=== PATIENT | male | born 1945 | race Caucasian/White ===

== ENCOUNTER 2019-10-02 10:23 | Outpatient (CLI) | payer MEDICARE, SELFPAY ==
--- NOTE | ~2019-10-02 | XR_ITS ---
XR chest 2V 10/02/2019 12:21 Indication: Personal history of pneumonia, shortness of breath and cough Procedure: 2 view chest Comparison: Comparison to multiple prior studies sequentially, with oldest reviewed study dated 01/2019. Findings: Bibasilar airspace disease. Heart size is normal. No pleural effusion or pneumothorax. No a cute osseous abnormality. There are surgical changes in the epigastric region. Impression: 1: Bibasilar airspace disease, differential diagnosis includes atelectasis, scarring and pneumonia.. Reviewed, dictated and finalized at location B. BATCHER Impression: 1: Bibasilar airspace disease, differential diagnosis includes atelectasis, sca rring and pneumonia..
[2019-10-02 11:07] VITALS: PULSE 64; O2SAT 86
[2019-10-02 11:08] VITALS: PULSE 65; O2SAT 87
[2019-10-02 11:09] VITALS: PULSE 64; O2SAT 89
[2019-10-02 11:13] VITALS: PULSE 65; O2SAT 90
[2019-10-02 11:20] VITALS: PULSE 64; O2SAT 91
--- NOTE | 2019-10-02 12:36 | HOMEO2EVAL ---
Home Oxygen Evaluation RC: Home Oxygen (O2) Evaluation Start: 10/02/19 12:32 Freq: Status: Active Protocol: RPE Activity Type Activity Date Activity User E-Sign Co-Sign Detail Recorded Client Recorded Date Recorded By Document 10/02/19 11:07 KRM [id number] 10/02/19 12:36 KRM Document 10/02/19 11:08 KRM [id number] 10/02/19 12:36 KRM Document 10/02/19 11:09 KRM [id number] 10/02/19 12:36 KRM Document 10/02/19 11:13 KRM [email or web address] 10/02/19 12:36 KRM Document 10/02/19 11:20 KRM [id number] 10/02/19 12:36 KRM 10/02/19 10/02/19 10/02/19 11:07 11:08 11:09 Home O2 Evaluation Test Phase Resting Resting Resting Oxygen Delivery Room Air Oxygen Flow Rate (L/min) 1 2 Pulse Oximetry (90-100 %) 86 L 87 L 89 L Pulse Rate (60-100 beats/min) 64 65 64 Activity Tolerance Ambulation Distance (feet) Treatment Charges O2 Evaluation 10/02/19 10/02/19 11:13 11:20 Home O2 Evaluation Test Phase Exercise Resting Oxygen Delivery Oxygen Flow Rate (L/min) 2 2 Pulse Oximetry (90-100 %) 90 91 Pulse Rate (60-100 beats/min) 65 64 Activity Tolerance Fair Ambulation Distance (feet) 100 Treatment Charges
== END 2019-10-02 10:24 | disposition home or self-care (01) ==
PROVIDERS: PCP Emergency Medicine; Visit Provider Internal Medicine Critical Care Medicine
DX: Z87.01 Personal history of pneumonia (recurrent) (principal); Z99.81 Dependence on supplemental oxygen; R91.8 Other nonspecific abnormal finding of lung field
CPT/HCPCS: 71046; 94618

== ENCOUNTER 2020-01-26 08:14 | Outpatient (CLI) | payer MEDICARE, SELFPAY ==
--- NOTE | ~2020-01-26 | XR_ITS ---
XR chest 2V DATE: 01/26/2020 08:47 INDICATION: Shortness of breath, hypoxemia. COPD. TECHNIQUE: PA and lateral views COMPARISON: 10/02/2019 PA and lateral chest FINDINGS: There is bibasilar discoid atelectasis and/or scarring, also present on 10/02/2019. There is mild elevation of the right leaf of the diaphragm The lungs are moderately hyperinflated. There is old pulmonary embolus disease. No pulmonary consolidation, pleural effusion, pulmonary vascular congestion or pneumothorax is eviden t since 10/02/2019. Normal heart size. Aortic calcification. IMPRESSION: Stable bibasilar discoid atelectasis and/or scarring/09/2019 Reviewed, dictated and finalized at location A.
== END 2020-01-26 08:15 | disposition home or self-care (01) ==
LOC: ANHIMG 08:23
PROVIDERS: PCP Emergency Medicine; Visit Provider Internal Medicine Critical Care Medicine
DX: J44.9 Chronic obstructive pulmonary disease, unspecified (principal); R09.02 Hypoxemia; J98.11 Atelectasis
CPT/HCPCS: 71046

== ENCOUNTER 2020-02-09 09:28 | Outpatient (CLI) | payer MEDICARE, SELFPAY ==
[2020-02-09 09:48] LABS: Basophils Absolute Auto 0.1 K/mm3 (0.0-0.1); Basophils Percent Auto 0.6 % (0.2-1.2); Eosinophils Absolute Auto 0.1 K/mm3 (0-0.3); Eosinophils Percent Auto 1.1 % (0-4.4); Hematocrit 46.2 % (42.0-52.0); Hemoglobin 14.1 g/dL (14.0-18.0); Immature Granulocyte Absolute 0.05 K/mm3 (0.00-0.031); Immature Granulocyte Percent A 0.4 % (0-0.5); Lymphocytes Absolute Auto 4.99 K/mm3 (0.9-3.2); Lymphocytes Percent Auto 43.2 % (18.3-44.2); Mean Corpuscular HGB Conc 30.5 g/dl (32-36); Mean Corpuscular Hemoglobin 29.9 pg (26-34); Mean Corpuscular Volume 98.1 fl (80-100); Mean Platelet Volume 9.8 fl (7.4-10.4); Monocytes Absolute Auto 1.1 K/mm3 (0.1-0.6); Monocytes Percent Auto 9.7 % (2.6-8.5); Neutrophils Absolute Auto 5.2 K/mm3 (1.3-6.7); Platelet Count Result 290 k/mm3 (150-375); Red Blood Count 4.71 M/mm3 (4.6-6.20); Red Cell Distribution Width 15.6 % (11.5-14.5); White Blood Count 11.6 K/mm3 (4.5-10.0)
[2020-02-09 12:30] LABS: Alanine Aminotransferase 16 U/L (4-50); Albumin Level 4.3 g/dL (3.5-5.1); Alkaline Phosphatase 94 U/L (38-126); Aspartate Amino Transferase 29 U/L (17-59); Bilirubin,Total 0.6 mg/dL (0.2-1.3); Blood Urea Nitrogen 18 mg/dL (9-20); Calcium 9.9 mg/dL (8.4-10.2); Carbon Dioxide 29 mmol/L (22-30); Chloride 100 mmol/L (98-107); Estimated Glomerular Filt Rate 46; Glucose 128 mg/dL (75-110); Lactate Dehydrogenase 390 U/L (313-618); Potassium 4.6 mmol/L (3.4-5.0); Sodium 139 mmol/L (137-145)
== END 2020-02-09 09:29 | disposition home or self-care (01) ==
LOC: ANHLAB 09:31
PROVIDERS: PCP Emergency Medicine; Visit Provider Internal Medicine Hematology & Oncology
DX: C84.90 Mature T/NK-cell lymphomas, unspecified, unspecified site (principal)
CPT/HCPCS: 36415; 80053; 83615; 85025

== ENCOUNTER 2020-03-23 08:32 | Outpatient (CLI) | payer MEDICARE, SELFPAY ==
--- NOTE | ~2020-03-23 | MR_ITS ---
EXAMINATION: MR brain/brain stem wo con DATE: 03/23/2020 09:26 INDICATION: Memory loss TECHNIQUE: Magnetic resonance imaging (MRI) of the brain and brainstem was performed without intraven ous contrast. Sequences included sagittal and axial T1-weighted SE, axial diffusion-weighted FS SE, a xial T2*-weighted GRE, axial T2-weighted FLAIR, and axial T2-weighted FSE. Apparent diffusion coeffic ient (ADC) maps were created. COMPARISON: None. 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 There are no areas of restricted diffusi on to suggest acute infarction. No intracranial hemorrhage or abnormal intracranial mass lesion. Ther e are scattered areas of nonspecific increased T2-weighted signal intensity in the cerebral white mat ter, predominantly involving the deep and periventricular white matter. There are no intraparenchymal signal abnormalities seen on the other pulse sequences. The ventricles are symmetric and normal in s ize with a normal anatomic variant cavum septum pellucidum. There are no abnormal extra-axial fluid c ollections. Flow voids are seen in the cerebral arteries on the T2-weighted sequences consistent with their expected patency. Visualized orbits and soft tissues are unremarkable. IMPRESSION: 1. No acute intracranial process. 2. 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 3. Mild nonspecific scattered periventricular predominant white matter T2 hyperintensity which is wit hin normal limits for age and likely sequela of chronic small vessel ischemic disease. Reviewed, dictated and finalized at location A. IMPRESSION: 1. No acute intracranial process. 2. 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 3. Mild nonspecific scattered periventricular predominant white matter T2 hyper intensity which is within normal limits for age and likely sequela of chronic s mall vessel ischemic disease.
== END 2020-03-23 08:33 | disposition home or self-care (01) ==
PROVIDERS: PCP Emergency Medicine; Visit Provider Psychiatry & Neurology Neurology
DX: R41.3 Other amnesia (principal); R93.0 Abnormal findings on diagnostic imaging of skull and head, not elsewhere classified
CPT/HCPCS: 70551

== ENCOUNTER 2020-03-24 09:25 | Observation (INO) | payer MEDICARE, SELFPAY ==
[2020-03-24] VITALS (36 sets, daily range): BP systolic 120–171; BP diastolic 66–129; PULSE 57–71; RESP 15–23; TEMP 36.6–37.1; O2SAT 90–99; BMI 33.3
--- NOTE | ~2020-03-24 | US_ITS ---
EXAMINATION: US venous doppler [facility] DATE: 03/24/2020 16:36 INDICATION: Lower limb swelling TECHNIQUE: Grayscale ultrasound images without and with compression and Doppler ultrasound images of the bilateral lower extremity veins were obtained. COMPARISON: None. FINDINGS: The visualized portions of right common femoral vein, profunda (deep) femoral vein, femoral vein, pop liteal vein, posterior tibial veins, peroneal veins, gastrocnemius vein and greater saphenous vein ou tflow are patent. The visualized portions of left common femoral vein, profunda femoral vein, femoral vein, popliteal v ein, posterior tibial veins, peroneal veins, gastrocnemius vein and greater saphenous vein outflow ar e patent. IMPRESSION: 1. No deep venous thrombosis in either lower limb. Reviewed, dictated and finalized at location A.
--- NOTE | ~2020-03-24 | CT_ITS ---
EXAMINATION: CT abdomen pelvis w con INDICATION: Generalized abdominal pain, history of lymphoma TECHNIQUE: Computed tomographic images of the abdomen and pelvis were obtained after the administrati on of 100 cc of Omnipaque 350 intravenous contrast. The dose-length product (DLP) was 1300.40 mGy-cm. Automated exposure control and iterative reconstruction technique were employed. COMPARISON: 05/23/2019 FINDINGS: Minimal dependent atelectasis is present in the lung bases. The heart size is normal. Calci fied pulmonary nodules and calcified right hilar lymph nodes are consistent with old granulomatous di sease. The liver, pancreas, gallbladder, and adrenal glands are normal. There are changes of splenect beni with several small splenule seen in the left quadrant. Cysts of the kidneys measure up to 12 mm o n the left. There is chronic mild periportal and retroperitoneal lymphadenopathy, stable and consiste nt with history of lymphoma. There is calcified atherosclerosis of the aorta and many of the other ar teries. There is a large volume of colonic stool particularly sigmoid colon and rectum. The appendix is normal. There are multiple tiny ventral hernias to the right of midline containing fat and omentum . There are bilateral L5 pars defects with severe spondylosis at L5-S1. IMPRESSION: 1. Constipation. 2. Stable chronic periportal and retroperitoneal lymphadenopathy, consistent with history of lymphoma . 3. Multiple small ventral hernias containing fat and omentum. Reviewed, dictated and finalized at location A. IMPRESSION: 1. Constipation. 2. Stable chronic periportal and retroperitoneal lymphadenopathy, consistent wi th history of lymphoma. 3. Multiple small ventral hernias containing fat and omentum.
--- NOTE | ~2020-03-24 | XR_ITS ---
EXAMINATION: XR barium swallow modified EXAM DATE: 03/25/2020 10:19 INDICATION: Dysphagia. TECHNIQUE: Modified barium esophagram was performed by myself to administered fluoroscopy, in conjun ction with speech pathologist who administered barium in varying consistencies as per speech patholog ist documentation. This was recorded on tape. The DAP for this procedure was 1.9 Gycm2. FINDINGS: Oral stage: Adequate function. Pharyngeal phase: Adequate function. Vallecular pooling. Laryngeal penetration: None. Aspiration: None. Laryngeal sensitivity: Present. IMPRESSION: Patient tolerated oral feedings in the upright position. Please refer to speech patholo gist findings and specific feeding recommendations. Reviewed, dictated and finalized at location A. IMPRESSION: Patient tolerated oral feedings in the upright position. Please r efer to speech pathologist findings and specific feeding recommendations.
--- NOTE | ~2020-03-24 | CT_ITS ---
EXAMINATION: CT brain wo con INDICATION: Weakness, transient alteration of awareness COMPARISON: MRI from yesterday TECHNIQUE: Standard unenhanced head CT. The dose-length product (DLP) was 605.33 mGy-cm. The mA was a djusted according to patient size. Iterative reconstruction technique was employed. FINDINGS: There is no acute intraparenchymal hemorrhage. No evidence of mass lesion. No evidence of a cute infarction. Old cerebellar infarcts. There is mild periventricular and subcortical hypodensity p robably related to small vessel ischemic disease. There is mild prominence of the sulci and ventricle s related to cerebral atrophy. Intracranial calcified cerebral atherosclerosis is noted. There are no extra-axial collections. There is no mass effect or midline shift. The orbits and soft tissues are u nremarkable. The visualized sinuses and mastoid air cells are well aerated. IMPRESSION: 1. No acute intracranial abnormality. 2. Age related findings. Reviewed, dictated and finalized at location A.
--- NOTE | ~2020-03-24 | XR_ITS ---
EXAMINATION: XR chest 2V DATE: 03/24/2020 09:54 INDICATION: Shortness of breath TECHNIQUE: AP and lateral views of the chest are obtained. COMPARISON: 01/26/2020 FINDINGS: There is chronic mild atelectasis of the lung bases. No acute airspace opacity is identifie d. There is no pleural effusion or pneumothorax. The cardiomediastinal silhouette is normal. Surgical clips are noted in the left upper quadrant. There is mild thoracic spondylosis. IMPRESSION: 1. Chronic atelectasis of the lung bases without acute cardiopulmonary abnormality. Reviewed, dictated and finalized at location A. IMPRESSION: 1. Chronic atelectasis of the lung bases without acute cardiopulmonary abnormal ity.
--- NOTE | 2020-03-24 09:28 | ECG_ITS ---
Measurements Intervals [place] Rate: 69 P: 34 NV: 238 QRS: 52 QRSD: 131 T: 62 QT: 414 QTc: 445 Interpretive Statements SINUS RHYTHM WITH FIRST DEGREE AV BLOCK RIGHT BUNDLE BRANCH BLOCK BASELINE ARTIFACT- I, II, AVR, AVL, AVF, V1-V6 ABNORMAL ECG Electronically Signed On 03-24-2020 13:38:48 CDT by Crow Rosales D.O.
[2020-03-24 09:45] LABS: Basophils Absolute Auto 0.1 K/mm3 (0.0-0.1); Basophils Percent Auto 0.6 % (0.2-1.2); Eosinophils Absolute Auto 0.1 K/mm3 (0-0.3); Hematocrit 47.2 % (42.0-52.0); Hemoglobin 14.5 g/dL (14.0-18.0); Immature Granulocyte Absolute 0.02 K/mm3 (0.00-0.031); Immature Granulocyte Percent A 0.2 % (0-0.5); Lymphocytes Absolute Auto 4.76 K/mm3 (0.9-3.2); Lymphocytes Percent Auto 39.8 % (18.3-44.2); Mean Corpuscular HGB Conc 30.7 g/dl (32-36); Mean Corpuscular Hemoglobin 30.2 pg (26-34); Mean Corpuscular Volume 98.3 fl (80-100); Monocytes Absolute Auto 1.1 K/mm3 (0.1-0.6); Monocytes Percent Auto 9.2 % (2.6-8.5); Neutrophils Absolute Auto 5.9 K/mm3 (1.3-6.7); Neutrophils Percent Auto 49.2 % (45.5-73.1); Platelet Count Result 230 k/mm3 (150-375); Red Cell Distribution Width 15.7 % (11.5-14.5)
[2020-03-24 10:00] LABS: Anion Gap 3 mmol/L (8-16); Blood Urea Nitrogen 22 mg/dL (9-20); Calcium 9.5 mg/dL (8.4-10.2); Carbon Dioxide 28 mmol/L (22-30); Chloride 107 mmol/L (98-107); Estimated CRCL calculation 48 ml/min; Estimated Glomerular Filt Rate 46; Glucose 96 mg/dL (75-110); Sodium 138 mmol/L (137-145)
[2020-03-24 10:31] LABS: Add Urine Microscopic? NO; Appearance Urine Clear (Clear); Bilirubin Urine Negative (Negative); Blood Urine Negative (Negative); Color Urine Straw (Yellow); Glucose Urine UA Negative (Negative); Ketones Urine Negative (Negative); Leukocyte Esterase Ur Negative LEU/UL (Negative); Nitrate Urine Negative (Negative); Protein Urine Negative (Negative); Specific Grav Ur 1.008 (1.001-1.035); Urobilinogen Urine Negative mg/dL (<2.0)
[2020-03-24 10:32] LABS: Lithium 2.8 mmol/L (0.6-1.2)
[2020-03-24 10:52] LABS: Alveolar/Arterial O2 Gradient 68.1 mmHg; Base Excess ABG -1.5 mEq/l (+/-2.0); Fractional Inspired Oxygen 28 %; HCO3 ABG 25.1 mEq/l (22.0-26.0); Methemoglobin ABG 0.4 %THb (0-1.5); Oxygen Content ABG 19.3 %vol (16.0-22.0); Oxygen Saturation ABG 93.6 % (95.0-100.0); Oxyhemoglobin 92.6 % THb (90.0-100.0); PCO2 ABG 49.1 mmHg (35.0-45.0); PO2 ABG 73.6 mmHg (80.0-100.0); PO2 FiO2 Ratio Arterial Blood 2.63 %; Total Hemoglobin 14.8 g/dL (12.0-18.0); pH ABG 7.326 (7.350-7.450)
[2020-03-24 10:54] LABS: Device NASAL CANNULA; Modified Allen's Test Pass; Site Drawn RIGHT RADIAL
[2020-03-24 11:02] LABS: Alanine Aminotransferase 6 U/L (4-50); Albumin Level 4.1 g/dL (3.5-5.1); Alkaline Phosphatase 94 U/L (38-126); Aspartate Amino Transferase 28 U/L (17-59); Bilirubin,Total 0.9 mg/dL (0.2-1.3); Lipase 133 U/L (23-300); Magnesium 2.8 mg/dL (1.6-2.3); Phosphorus 3.9 mg/dL (2.5-4.5)
[2020-03-24] MEDS: SODIUM CHLORIDE 0.9% IV 1,000 ML 999 ML IV CONT (11:06)
[2020-03-24 11:07] LABS: D Dimer 0.45 ug/mL (<0.48)
[2020-03-24 11:14] LABS: Troponin I < 0.012 ng/mL (0.000-0.034)
[2020-03-24 11:20] LABS: Lactic Acid Reflex 0.7 mmol/L (0.7-2.1)
--- NOTE | 2020-03-24 12:54 | ED.GENADULT ---
HPI - General Adult General Chief complaint: Shortness of Breath/Dyspnea Stated complaint: SICK TO MY STOMACH Time Seen by Provider: 03/24/20 10:14 Source: patient, family and old records reviewed Mode of arrival: ambulatory Limitations: no limitations History of Present Illness HPI narrative: Patient is a 74-year-old male who presents to emergency department for evaluation of not feeling well this morning patient woke up complaining to his that he was not feeling well noting generalized aching patient on arrival is resting comfortably in the room denying any pain does note some nausea patient has had some confusion over the last month. Patient on arrival answers questions appropriately denies any recent illness injury or trauma. Patient notes some mild discomfort of the abdomen on palpation. Patient also notes some shortness of breath does have chronic COPD with oxygen use. Patient denies URI symptoms. Related Data Home Medications Medication Instructions Recorded Confirmed atorvastatin [Lipitor] 10 mg PO HS 06/07/19 03/04/20 carbidopa-levodopa [Sinemet] 25 - 100 tablet TID 06/07/19 03/04/20 cholecalciferol (vitamin D3) 1,000 unit PO DAILY 06/07/19 03/04/20 [Vitamin D3] fluoxetine [Prozac] 10 mg PO BID 06/07/19 03/04/20 levothyroxine [Synthroid] 50 mcg PO DAILY 06/07/19 03/04/20 lithium carbonate 600 mg PO Q12H 06/07/19 03/04/20 Allergies Allergy/AdvReac Type Severity Reaction Status Date / Time No Known Allergies Allergy Mild Verified 03/24/20 09:38 Review of Systems Review of Systems: All systems reviewed & are unremarkable except as noted in HPI and below PMFSH Past Medical History Medical History Body mass index (bmi) 32.0-32.9, adult (12/09/17) Chronic kidney disease, stage 3a COPD (chronic obstructive pulmonary disease) COPD (chronic obstructive pulmonary disease) Depression DVT (deep venous thrombosis) Essential tremor Former smoker 3 ppd, none since 1999; 30 + years x 3 ppd, 90 pack years. Not a candidate for lung cancer screening as he quit over 15 years ago. History of bipolar disorder History of melena Hypertension Hypothyroidism Hypoxemia Obstructive sleep apnea (adult) (pediatric) Other abnormal clinical finding Perforated gastric ulcer Psoriasis Pulmonary embolism Sleep apnea Surgical History Surgical History History of laparotomy In 1983, secondary to perforated ulcer. Social History Social History Social History: The patient lives with his , Angelica, and their son in [facility]. His is his surrogate decision maker. He is a full code. He smoked up to 3 packs of cigarettes per day and quit in 1999. He drinks 4 alcoholic beverages a week. No drug use. Primary care provider is Dr. Alicea. Smoking packs per day: 3 Smoking cigarettes per day: 60.0 Years smoked: 40 Smoking pack-years: 120.00 Smoking status: Former smoker Tobacco type: cigarettes Smoking end date: 08/02/01 Additional smoking assessment comments: QUIT SMOKING IN 1999 Alcohol intake: current Drinks per week: 4 Substance use: never Substance use type: does not use Gender identity (if verbalized by the patient): Male Spiritual care concerns: No Agree to blood products: Yes Exam Narrative: Exam Narrative: GENERAL: Well-appearing, well-nourished, and in no acute distress. HEAD: Normocephalic, atraumatic. EYES: PERRLA and EOMI. ENT: Nares clear, no rhinorrhea or epistaxis. Mucous membranes moist. Oropharynx without tonsillar hypertrophy exudate or other lesions. NECK: Supple. No adenopathy or masses. CHEST: Clear to auscultation. No respiratory distress. No wheezes rales or rhonchi HEART: Regular rate and rhythm. No murmur heard. Normal peripheral pulses. ABDOMEN: Soft, mild tenderness of the
--- NOTE | 2020-03-24 13:55 | PM.IMHP ---
H&P: HPI History of Present Illness Date/Time: 03/24/20 at 13:55. The patient was seen and evaluated in the emergency department. Chief complaint: I don't feel good. Narrative: Juarez Bermudez is a 74-year-old male with obstructive sleep apnea on CPAP, COPD, chronic respiratory failure on home oxygen, hypertension, hypothyroidism, and bipolar disorder who presented to the emergency department this morning via private home with the complaint of I just do not feel very good. Neither the patient nor his is the greatest historian, but from what I can gather he has not been feeling well for a couple of months, with vague symptoms to include insomnia to the point where he is awake most of the night and is only taking catnaps during the day, confusion at nighttime, intermittent nausea, shakes, and shortness of breath. The patient tells me he has been short of breath since I was a little kid but over the last few months he has felt more short of breath and has turned his oxygen to 3-4 liters. He used to wear his CPAP diligently, but now complains that it has too much pressure and has only been using it intermittently and on a lower setting. The insomnia started within the past month or so, and notes that he seems a bit confused at night. He has chronic lower leg edema which perhaps has been a bit worse, in addition to mild orthopnea. He rarely has a cough, which is unproductive, and this is unchanged. It does not sound as though he uses his inhalers as scheduled, and occasionally misses them for unclear reasons. With regards to the shakes/tremors, these have been ongoing for years and in fact he was started on carbidopa-levodopa by Dr. Heath well over a year ago. He was not diagnosed with Parkinson and Dr. Heath thinks perhaps these are instead due to a side effect of his lithium. In any event, it sounds as though the patient's wanted to bring him in today because he told her he was not feeling very good this morning. Although he cannot really elaborate, it seems that most of these symptoms are chronic. His lithium level was found to be supratherapeutic and he and his deny that he could have accidentally taken extra medication (it is noted that he was admitted to the hospital in 06/2019 with unintentional medication overdose). Due to COVID we have not been able to have his lithium levels checked. At the time my evaluation the patient is resting comfortably and is asking for water. I did give him a glass of water to drink, and witnessed him coughing several times after taking a drink. He is not interested in staying in the hospital overnight, however his has talked him into staying. Currently he denies headache, worsening tremors, vomiting, diarrhea, focal weakness, and paresthesias. He has not had fever, chills, or sweats. No chest pain or pleuritic pain. He denies calf pain and tenderness. No vomiting or diarrhea. Review of Systems Review of Systems: Narrative: Twelve systems were reviewed with pertinent positives and negatives as per HPI. No fever, chills, or sweats. He has occasional rhinorrhea. He also has an occasional cough, but that is longstanding and the blames that on his COPD. no recent travel or sick contacts. They have not been exposed to COVID-19 to their knowledge. It sounds as though he is not always compliant with his inhalers. He denies wheezing. He was noted to cough several times while drinking water at bedside, and he reports that sometimes happens but not frequently. Swallow study in the fall of 2018 showed evidence of laryngeal penetration and I believe he had some speech therapy. He drinks a lot of water, and continuously asks me for a glass of ice water while I am in the room. says he drinks at least 4 to 5, 16 oz of bottle of water a day. This has been ongoing for many years. No auditory or visual changes. He has no history of dementia, but notes he has been up most of the night for nearly a month and
[2020-03-24 13:57] LABS: Lithium 1.6 mmol/L (0.6-1.2)
[2020-03-24] MEDS: SODIUM CHLORIDE 0.9% IV 1,000 ML 100 ML IV CONT (16:52)
[2020-03-24] MEDS: DOCUSATE SODIUM 100 MG CAPSULE PO (20:23)
[2020-03-24 20:27] LABS: Alveolar/Arterial O2 Gradient 76.1 mmHg; Base Excess ABG -2.1 mEq/l (+/-2.0); Carboxyhemoglobin 0.1 % THb (0-2.0); Fractional Inspired Oxygen 28 %; HCO3 ABG 24.1 mEq/l (22.0-26.0); Methemoglobin ABG 0.3 %THb (0-1.5); Modified Allen's Test Pass; Oxygen Content ABG 19.3 %vol (16.0-22.0); Oxygen Saturation ABG 92.6 % (95.0-100.0); Oxyhemoglobin 93.3 % THb (90.0-100.0); PCO2 ABG 46.4 mmHg (35.0-45.0); PO2 ABG 68.8 mmHg (80.0-100.0); PO2 FiO2 Ratio Arterial Blood 2.46 %; Reduced Hemoglobin 6.3 %THb (0-5.0); Site Drawn RIGHT RADIAL; Total Hemoglobin 14.7 g/dL (12.0-18.0); pH ABG 7.333 (7.350-7.450)
[2020-03-24 20:28] LABS: Device NASAL CANNULA; Liters per Minute 2.5 LPM
[2020-03-25] VITALS: BP 135/76; PULSE 61; PULSE 63; RESP 18; TEMP 36.7; O2SAT 94
--- NOTE | 2020-03-25 03:16 | PC.NURSE ---
0309 Report received from MAY Jorge.
[2020-03-25 04:00] VITALS: BP 126/81; PULSE 57; PULSE 60; RESP 20; TEMP 36.3; O2SAT 96
[2020-03-25] MEDS: LEVOTHYROXINE SODIUM 50 MCG TABLET PO (05:52)
[2020-03-25 06:05] LABS: Basophils Absolute Auto 0.1 K/mm3 (0.0-0.1); Basophils Percent Auto 0.6 % (0.2-1.2); Eosinophils Absolute Auto 0.2 K/mm3 (0-0.3); Eosinophils Percent Auto 1.3 % (0-4.4); Hematocrit 47.1 % (42.0-52.0); Hemoglobin 14.1 g/dL (14.0-18.0); Immature Granulocyte Absolute 0.03 K/mm3 (0.00-0.031); Immature Granulocyte Percent A 0.3 % (0-0.5); Lymphocytes Absolute Auto 3.95 K/mm3 (0.9-3.2); Lymphocytes Percent Auto 33.1 % (18.3-44.2); Mean Corpuscular HGB Conc 29.9 g/dl (32-36); Mean Corpuscular Hemoglobin 29.4 pg (26-34); Mean Corpuscular Volume 98.1 fl (80-100); Mean Platelet Volume 9.9 fl (7.4-10.4); Monocytes Absolute Auto 1.1 K/mm3 (0.1-0.6); Neutrophils Absolute Auto 6.7 K/mm3 (1.3-6.7); Neutrophils Percent Auto 55.7 % (45.5-73.1); Platelet Count Result 227 k/mm3 (150-375); Red Cell Distribution Width 15.5 % (11.5-14.5); White Blood Count 11.9 K/mm3 (4.5-10.0)
[2020-03-25 06:15] LABS: Anion Gap 3 mmol/L (8-16); Blood Urea Nitrogen 17 mg/dL (9-20); Calcium 9.4 mg/dL (8.4-10.2); Carbon Dioxide 30 mmol/L (22-30); Chloride 107 mmol/L (98-107); Estimated CRCL calculation 55 ml/min; Estimated Glomerular Filt Rate 54; Glucose 102 mg/dL (75-110); Magnesium 2.4 mg/dL (1.6-2.3); Potassium 4.8 mmol/L (3.4-5.0); Sodium 140 mmol/L (137-145)
[2020-03-25 08:00] VITALS: PULSE 66
[2020-03-25] MEDS: DOCUSATE SODIUM 100 MG CAPSULE PO (08:38)
[2020-03-25] MEDS: CHOLECALCIFEROL 1,000 UNITS TABLET 1000 UNITS PO (08:38)
[2020-03-25] MEDS: FLUoxetine HCL 10 MG CAPSULE PO (08:38)
[2020-03-25] MEDS: CARBIDOPA/LEVODOPA 25/100 MG TABLET PO (08:39)
[2020-03-25] MEDS: ENOXAPARIN 40 MG/0.4 ML SYRINGE SUB-Q (08:40)
--- NOTE | 2020-03-25 14:36 | PM.DS ---
DS: Admitting Diagnosis Admitting Diagnosis Admitting Diagnosis: [place] toxicity DS: Discharge Diagnosis Discharge Diagnosis (1) [place] toxicity: Code(s): T56.891A - Toxic effect of other metals, accidental (unintentional), initial encounter Status: Acute (2) Episode of generalized weakness: Code(s): R53.1 - Weakness Status: Acute (3) Bipolar 1 disorder: Code(s): F31.9 - Bipolar disorder, unspecified Status: Acute (4) Hyperlipidemia: Qualifiers: Hyperlipidemia type: unspecified Qualified Code(s): E78.5 - Hyperlipidemia, unspecified Code(s): E78.5 - Hyperlipidemia, unspecified Status: Acute (5) History of COPD: Code(s): Z87.09 - Personal history of other diseases of the respiratory system Status: Acute DS: Summary Hospital Course Reason for hospitalization: Weakness , confusion likely due to lithium toxicity. Hospital Course: 74 yo with history of bipolar disorder and chronic hypoxemic resp failure presented to the hospital with confusion, tremors, nausea, bradycardia and polyuria. He was fount to have [place] toxicity levels were 2.8 on admission and decreased to 1.0 at the time of discharge. Today he states he is feeling much better, he answered my questions appropriately but could not remember his psychiatrist name. I think his symptoms were most likely related to lithium toxicity . I spoke with Dr. Treadwell his psychiatrist and she advised to stop the lithium for now and she will do a telemedicine consult with him tomorrow to decide further therapy for his bipolar disorder. He was also seen by PT and speech therapy, speech recommended outpatient therapy. He has venous US of the lower extremity that showed no evidence of DVT and also had a ct of the abdomen and pelvis that was negative for an acute process. His discharge plan was discussed with his who arranges the follow ups for him. Status at Discharge Overall status at discharge: patient is back to baseline Time Spent with Patient Time attestation: Total time spent providing and/or coordinating discharge services: Time spent: Greater than 30 minutes Exam Const: General: no acute distress Eyes: Pupils: Equal, round and reactive pupils present Neck: Neck: supple and no JVD Resp: Effort & Inspection: normal respiratory effort Auscultation: clear to auscultation bilaterally and diminished lung sounds Cardio: Rate: regular rate Rhythm: regular rhythm GI: GI Palp: Yes Soft to palpation Auscultation: normal bowel sounds Neuro: Sensory Exam: normal sensation Other: Intentional tremors, no focal deficits. DS: Data Data Completed and Pending Labs on day of discharge: Labs from last 24 hours 03/25/20 03/25/20 03/25/20 05:51 05:51 05:51 WBC 11.9 H RBC 4.80 Hgb 14.1 Hct 47.1 MCV 98.1 MCH 29.4 MCHC 29.9 L RDW 15.5 H Plt Count 227 MPV 9.9 Immature Gran % (Auto) 0.3 Neut % (Auto) 55.7 Lymph % (Auto) 33.1 [place] % (Auto) 9.0 H Eos % (Auto) 1.3 Baso % (Auto) 0.6 Lymph # (Auto) 3.95 H [place] # (Auto) 1.1 H Eos # (Auto) 0.2 Baso # (Auto) 0.1 Abs Immat Gran (auto) 0.03 Absolute Neuts (auto) 6.7 Absolute Nucleated RBC 0.0 Nucleated RBC % 0.0 Puncture Site ABG pH ABG pCO2 ABG pO2 ABG PO2/FiO2 Ratio ABG HCO3 ABG O2 Saturation ABG O2 Content ABG Base Excess A-a Gradient Oxyhemoglobin Carboxyhemoglobin Methemoglobin Reduced Hemoglobin Total Hemoglobin O2 Delivery Device O2 Liters/Min FiO2 Sodium 140 Potassium 4.8 Chloride 107 Carbon Dioxide 30 Anion Gap 3 L BUN 17 Creatinine 1.30 Estim Creat Clear Calc 55 Estimated GFR 54 L Glucose 102 Calcium 9.4 Magnesium 2.4 H TSH (Reflex) 1.290 [place] 1.0 03/24/20 20:24 WBC RBC Hgb Hct MCV MCH MCHC RDW Plt Count MPV Immature Gran % (Aut
== END 2020-03-25 12:15 | disposition home or self-care (01) ==
LOC: ANHED 13:57 → ANH3MED 16:09
PROVIDERS: Emergency Medicine Emergency Medical Services; Physician Assistant; Admitting Provider Internal Medicine; Emergency Provider Emergency Medicine; PCP Emergency Medicine; Visit Provider Hospitalist
DX: T56.891A Toxic effect of other metals, accidental (unintentional), initial encounter (principal); R60.0 Localized edema; J96.11 Chronic respiratory failure with hypoxia; G47.33 Obstructive sleep apnea (adult) (pediatric); N18.3 Chronic kidney disease, stage 3 (moderate); R13.10 Dysphagia, unspecified; K59.00 Constipation, unspecified; C85.90 Non-Hodgkin lymphoma, unspecified, unspecified site; J44.9 Chronic obstructive pulmonary disease, unspecified; Z87.891 Personal history of nicotine dependence; R53.1 Weakness; F31.9 Bipolar disorder, unspecified; E78.5 Hyperlipidemia, unspecified
CPT/HCPCS: 36415; 36600; 51701; 70450; 71046; 74177; 80048; 80076; 80178; 81003; 82375; 82805; 83050; 83605; 83690; 83735; 84100; 84443; 84484; 85025; 85380; 87040; 92611; 93005; 93970; 96360; 96361; 96372; 99285; A9270; G0378; J1650; J7030; Q9967

== ENCOUNTER 2020-03-27 10:14 | Outpatient (CLI) | payer MEDICARE, SELFPAY ==
[2020-03-27 11:59] LABS: Hematocrit 47.1 % (42.0-52.0); Hemoglobin 14.3 g/dL (14.0-18.0); Mean Corpuscular HGB Conc 30.4 g/dl (32-36); Mean Corpuscular Hemoglobin 29.9 pg (26-34); Mean Corpuscular Volume 98.5 fl (80-100); Mean Platelet Volume 10.5 fl (7.4-10.4); Platelet Count Result 232 k/mm3 (150-375); Red Blood Count 4.78 M/mm3 (4.6-6.20); Red Cell Distribution Width 16.2 % (11.5-14.5); White Blood Count 11.3 K/mm3 (4.5-10.0)
[2020-03-27 12:09] LABS: Albumin Level 4.2 g/dL (3.5-5.1); Alkaline Phosphatase 93 U/L (38-126); Anion Gap 5 mmol/L (8-16); Aspartate Amino Transferase 29 U/L (17-59); Bilirubin,Total 1.1 mg/dL (0.2-1.3); Blood Urea Nitrogen 15 mg/dL (9-20); Calcium 9.6 mg/dL (8.4-10.2); Carbon Dioxide 29 mmol/L (22-30); Chloride 104 mmol/L (98-107); Estimated Glomerular Filt Rate 49; Glucose 96 mg/dL (75-110); Potassium 4.5 mmol/L (3.4-5.0); Sodium 138 mmol/L (137-145)
[2020-03-27 12:17] LABS: Alanine Aminotransferase < 4 U/L (4-50)
[2020-03-27 12:28] LABS: Lithium 0.4 mmol/L (0.6-1.2)
== END 2020-03-27 10:15 | disposition home or self-care (01) ==
PROVIDERS: PCP Emergency Medicine
DX: R79.89 Other specified abnormal findings of blood chemistry (principal); E87.8 Other disorders of electrolyte and fluid balance, not elsewhere classified; E53.9 Vitamin B deficiency, unspecified
CPT/HCPCS: 36415; 80053; 80178; 82248; 85027

== ENCOUNTER 2020-04-02 08:44 | Outpatient (CLI) | payer MEDICARE, SELFPAY ==
[2020-04-02 09:21] LABS: Hematocrit 44.6 % (42.0-52.0); Hemoglobin 13.7 g/dL (14.0-18.0); Mean Corpuscular HGB Conc 30.7 g/dl (32-36); Mean Corpuscular Hemoglobin 30.5 pg (26-34); Mean Corpuscular Volume 99.3 fl (80-100); Platelet Count Result 242 k/mm3 (150-375); Red Blood Count 4.49 M/mm3 (4.6-6.20); Red Cell Distribution Width 16.3 % (11.5-14.5); White Blood Count 9.7 K/mm3 (4.5-10.0)
[2020-04-02 09:38] LABS: Alkaline Phosphatase 81 U/L (38-126); Anion Gap 4 mmol/L (8-16); Aspartate Amino Transferase 30 U/L (17-59); Bilirubin,Total 1.1 mg/dL (0.2-1.3); Blood Urea Nitrogen 14 mg/dL (9-20); Calcium 9.1 mg/dL (8.4-10.2); Carbon Dioxide 29 mmol/L (22-30); Chloride 104 mmol/L (98-107); Estimated Glomerular Filt Rate 54; Glucose 100 mg/dL (75-110); Potassium 4.5 mmol/L (3.4-5.0); Sodium 137 mmol/L (137-145)
[2020-04-02 09:58] LABS: Lithium 0.3 mmol/L (0.6-1.2)
[2020-04-02 09:59] LABS: Alanine Aminotransferase < 6 U/L (4-50)
== END 2020-04-02 08:45 | disposition home or self-care (01) ==
PROVIDERS: PCP Emergency Medicine
DX: R79.89 Other specified abnormal findings of blood chemistry (principal); E87.8 Other disorders of electrolyte and fluid balance, not elsewhere classified; E53.9 Vitamin B deficiency, unspecified
CPT/HCPCS: 36415; 80053; 80178; 82248; 85027

== ENCOUNTER 2020-05-13 08:21 | Outpatient (CLI) | payer MEDICARE, SELFPAY ==
[2020-05-13 08:41] LABS: Basophils Absolute Auto 0.1 K/mm3 (0.0-0.1); Basophils Percent Auto 0.6 % (0.2-1.2); Eosinophils Absolute Auto 0.2 K/mm3 (0-0.3); Eosinophils Percent Auto 1.2 % (0-4.4); Hematocrit 45.9 % (42.0-52.0); Hemoglobin 13.9 g/dL (14.0-18.0); Immature Granulocyte Absolute 0.03 K/mm3 (0.00-0.031); Immature Granulocyte Percent A 0.2 % (0-0.5); Lymphocytes Absolute Auto 6.75 K/mm3 (0.9-3.2); Lymphocytes Percent Auto 53.2 % (18.3-44.2); Mean Corpuscular HGB Conc 30.3 g/dl (32-36); Mean Corpuscular Hemoglobin 29.4 pg (26-34); Mean Platelet Volume 9.3 fl (7.4-10.4); Monocytes Absolute Auto 1.2 K/mm3 (0.1-0.6); Monocytes Percent Auto 9.8 % (2.6-8.5); Neutrophils Absolute Auto 4.4 K/mm3 (1.3-6.7); Platelet Count Result 235 k/mm3 (150-375); Red Blood Count 4.73 M/mm3 (4.6-6.20); White Blood Count 12.7 K/mm3 (4.5-10.0)
[2020-05-13 09:05] LABS: Atypical Lymphocytes Present; Platelet Estimate Adequate (Adequate)
[2020-05-13 10:03] LABS: Alanine Aminotransferase 21 U/L (4-50); Alkaline Phosphatase 72 U/L (38-126); Anion Gap 8 mmol/L (8-16); Aspartate Amino Transferase 29 U/L (17-59); Bilirubin,Total 1.2 mg/dL (0.2-1.3); Blood Urea Nitrogen 19 mg/dL (9-20); Calcium 9.8 mg/dL (8.4-10.2); Carbon Dioxide 28 mmol/L (22-30); Chloride 102 mmol/L (98-107); Estimated Glomerular Filt Rate 59; Glucose 93 mg/dL (75-110); Lactate Dehydrogenase 405 U/L (313-618); Sodium 138 mmol/L (137-145)
== END 2020-05-13 08:22 | disposition home or self-care (01) ==
PROVIDERS: PCP Emergency Medicine; Visit Provider Internal Medicine Hematology & Oncology
DX: C84.90 Mature T/NK-cell lymphomas, unspecified, unspecified site (principal)
CPT/HCPCS: 36415; 80053; 83615; 85025

== ENCOUNTER 2020-06-14 08:32 | Outpatient (CLI) | payer MEDICARE, SELFPAY ==
[2020-06-14 09:31] LABS: Hematocrit 45.2 % (42.0-52.0); Hemoglobin 14.2 g/dL (14.0-18.0); Mean Corpuscular HGB Conc 31.4 g/dl (32-36); Mean Corpuscular Hemoglobin 30.2 pg (26-34); Mean Corpuscular Volume 96.2 fl (80-100); Mean Platelet Volume 9.6 fl (7.4-10.4); Platelet Count Result 250 k/mm3 (150-375); Red Cell Distribution Width 14.4 % (11.5-14.5); White Blood Count 10.6 K/mm3 (4.5-10.0)
[2020-06-14 09:44] LABS: Cholesterol 136 mg/dL (0-200); HDL Direct 35 mg/dL; Triglycerides 165 mg/dL (<150)
[2020-06-14 09:55] LABS: LDL Cholesterol Direct 67 mg/dL
[2020-06-14 10:11] LABS: Creatinine Urine 46.5 mg/dL
[2020-06-14 10:14] LABS: MALB Creatinine Ratio < 12.9 mg/g (0-30); Microalbumin Urine Random < 6.0 mg/L (0-16.7)
[2020-06-14 10:23] LABS: Free T4 Free Thyroxine 1.01 ng/mL (0.78-2.19)
== END 2020-06-14 08:33 | disposition home or self-care (01) ==
PROVIDERS: PCP Emergency Medicine; Visit Provider Emergency Medicine
DX: E78.5 Hyperlipidemia, unspecified (principal); E03.9 Hypothyroidism, unspecified; J44.9 Chronic obstructive pulmonary disease, unspecified; L40.9 Psoriasis, unspecified; F31.9 Bipolar disorder, unspecified
CPT/HCPCS: 36415; 80061; 82043; 84439; 84443; 85027

== ENCOUNTER 2020-06-21 08:07 | Outpatient (CLI) | payer MEDICARE, SELFPAY ==
[2020-06-21 08:45] LABS: Hematocrit 44.4 % (42.0-52.0); Hemoglobin 13.9 g/dL (14.0-18.0); Mean Corpuscular HGB Conc 31.3 g/dl (32-36); Mean Corpuscular Hemoglobin 30.3 pg (26-34); Mean Corpuscular Volume 96.7 fl (80-100); Mean Platelet Volume 9.4 fl (7.4-10.4); Platelet Count Result 221 k/mm3 (150-375); Red Blood Count 4.59 M/mm3 (4.6-6.20); Red Cell Distribution Width 14.4 % (11.5-14.5); White Blood Count 10.3 K/mm3 (4.5-10.0)
[2020-06-21 08:59] LABS: Alanine Aminotransferase 19 U/L (4-50); Albumin Level 4.3 g/dL (3.5-5.1); Alkaline Phosphatase 64 U/L (38-126); Anion Gap 6 mmol/L (8-16); Aspartate Amino Transferase 27 U/L (17-59); Bilirubin,Total 0.6 mg/dL (0.2-1.3); Blood Urea Nitrogen 20 mg/dL (9-20); Calcium 9.6 mg/dL (8.4-10.2); Carbon Dioxide 30 mmol/L (22-30); Chloride 104 mmol/L (98-107); Estimated Glomerular Filt Rate 59; Glucose 106 mg/dL (75-110); Potassium 4.4 mmol/L (3.4-5.0); Sodium 140 mmol/L (137-145)
[2020-06-21 09:25] LABS: Lithium 0.5 mmol/L (0.6-1.2)
== END 2020-06-21 08:08 | disposition home or self-care (01) ==
PROVIDERS: PCP Emergency Medicine
DX: R79.89 Other specified abnormal findings of blood chemistry (principal); E87.8 Other disorders of electrolyte and fluid balance, not elsewhere classified
CPT/HCPCS: 36415; 80053; 80178; 85027

== ENCOUNTER 2020-08-23 07:46 | Outpatient (CLI) | payer MEDICARE, SELFPAY ==
[2020-08-23 08:37] LABS: Hematocrit 45.8 % (42.0-52.0); Hemoglobin 14.2 g/dL (14.0-18.0); Mean Corpuscular Hemoglobin 30.6 pg (26-34); Mean Corpuscular Volume 98.7 fl (80-100); Mean Platelet Volume 9.4 fl (7.4-10.4); Platelet Count Result 228 k/mm3 (150-375); Red Blood Count 4.64 M/mm3 (4.6-6.20); Red Cell Distribution Width 15.3 % (11.5-14.5); White Blood Count 12.3 K/mm3 (4.5-10.0)
[2020-08-23 08:50] LABS: Alanine Aminotransferase 22 U/L (4-50); Albumin Level 4.1 g/dL (3.5-5.1); Alkaline Phosphatase 79 U/L (38-126); Anion Gap 2 mmol/L (8-16); Aspartate Amino Transferase 30 U/L (17-59); Bilirubin,Total 0.9 mg/dL (0.2-1.3); Blood Urea Nitrogen 18 mg/dL (9-20); Calcium 9.5 mg/dL (8.4-10.2); Carbon Dioxide 32 mmol/L (22-30); Chloride 105 mmol/L (98-107); Estimated Glomerular Filt Rate 54; Glucose 107 mg/dL (75-110); Lithium 0.7 mmol/L (0.6-1.2); Potassium 4.6 mmol/L (3.4-5.0); Sodium 139 mmol/L (137-145)
== END 2020-08-23 07:47 | disposition home or self-care (01) ==
PROVIDERS: PCP Emergency Medicine
DX: R79.89 Other specified abnormal findings of blood chemistry (principal); E87.8 Other disorders of electrolyte and fluid balance, not elsewhere classified; E53.9 Vitamin B deficiency, unspecified
CPT/HCPCS: 36415; 80053; 80178; 82248; 85027

== ENCOUNTER 2020-11-07 11:44 | Outpatient (CLI) | payer MEDICARE, SELFPAY ==
[2020-11-07 11:58] LABS: Basophils Absolute Auto 0.1 K/mm3 (0.0-0.1); Basophils Percent Auto 0.8 % (0.2-1.2); Eosinophils Absolute Auto 0.2 K/mm3 (0-0.3); Eosinophils Percent Auto 1.3 % (0-4.4); Hematocrit 45.7 % (42.0-52.0); Immature Granulocyte Absolute 0.03 K/mm3 (0.00-0.031); Immature Granulocyte Percent A 0.3 % (0-0.5); Lymphocytes Absolute Auto 6.22 K/mm3 (0.9-3.2); Lymphocytes Percent Auto 53.7 % (18.3-44.2); Mean Corpuscular HGB Conc 30.6 g/dl (32-36); Mean Corpuscular Hemoglobin 30.4 pg (26-34); Mean Corpuscular Volume 99.1 fl (80-100); Mean Platelet Volume 9.6 fl (7.4-10.4); Neutrophils Absolute Auto 4.1 K/mm3 (1.3-6.7); Neutrophils Percent Auto 34.9 % (45.5-73.1); Platelet Count Result 226 k/mm3 (150-375); Red Blood Count 4.61 M/mm3 (4.6-6.20); Red Cell Distribution Width 14.8 % (11.5-14.5); White Blood Count 11.6 K/mm3 (4.5-10.0)
[2020-11-07 14:29] LABS: Potassium 4.7 mmol/L (3.4-5.0)
[2020-11-07 14:41] LABS: Alanine Aminotransferase 20 U/L (4-50); Albumin Level 4.4 g/dL (3.5-5.1); Alkaline Phosphatase 71 U/L (38-126); Anion Gap 8 mmol/L (8-16); Aspartate Amino Transferase 30 U/L (17-59); Bilirubin,Total 1.1 mg/dL (0.2-1.3); Blood Urea Nitrogen 19 mg/dL (9-20); Calcium 9.8 mg/dL (8.4-10.2); Carbon Dioxide 29 mmol/L (22-30); Chloride 106 mmol/L (98-107); Estimated Glomerular Filt Rate 49; Glucose 108 mg/dL (75-110); Lactate Dehydrogenase 402 U/L (313-618); Sodium 143 mmol/L (137-145)
== END 2020-11-07 11:45 | disposition home or self-care (01) ==
LOC: ANHLAB 11:46
PROVIDERS: PCP Emergency Medicine; Visit Provider Internal Medicine Hematology & Oncology
DX: C84.90 Mature T/NK-cell lymphomas, unspecified, unspecified site (principal)
CPT/HCPCS: 36415; 80053; 83615; 85025

== ENCOUNTER 2020-12-17 07:12 | Outpatient (CLI) | payer MEDICARE, SELFPAY ==
[2020-12-17 08:07] LABS: Hematocrit 43.6 % (42.0-52.0); Hemoglobin 13.5 g/dL (14.0-18.0); Mean Corpuscular Hemoglobin 30.8 pg (26-34); Mean Corpuscular Volume 99.5 fl (80-100); Mean Platelet Volume 9.5 fl (7.4-10.4); Platelet Count Result 236 k/mm3 (150-375); Red Blood Count 4.38 M/mm3 (4.6-6.20); Red Cell Distribution Width 14.8 % (11.5-14.5); White Blood Count 16.6 K/mm3 (4.5-10.0)
[2020-12-17 08:21] LABS: Potassium 4.5 mmol/L (3.4-5.0)
[2020-12-17 08:23] LABS: Alanine Aminotransferase 19 U/L (4-50); Albumin Level 4.3 g/dL (3.5-5.1); Alkaline Phosphatase 77 U/L (38-126); Anion Gap 7 mmol/L (8-16); Aspartate Amino Transferase 27 U/L (17-59); Blood Urea Nitrogen 15 mg/dL (9-20); Calcium 10.3 mg/dL (8.4-10.2); Carbon Dioxide 29 mmol/L (22-30); Chloride 106 mmol/L (98-107); Estimated Glomerular Filt Rate 54; Glucose 102 mg/dL (75-110); Sodium 142 mmol/L (137-145)
[2020-12-17 08:56] LABS: Lithium 0.7 mmol/L (0.6-1.2)
== END 2020-12-17 07:13 | disposition home or self-care (01) ==
PROVIDERS: PCP Emergency Medicine
DX: R79.89 Other specified abnormal findings of blood chemistry (principal); E87.8 Other disorders of electrolyte and fluid balance, not elsewhere classified; E53.9 Vitamin B deficiency, unspecified
CPT/HCPCS: 36415; 80053; 80178; 82248; 85027

== ENCOUNTER 2021-04-16 08:30 | Outpatient (CLI) | payer MEDICARE, SELFPAY ==
[2021-04-16 09:10] LABS: Hematocrit 46.3 % (42.0-52.0); Hemoglobin 14.1 g/dL (14.0-18.0); Mean Corpuscular HGB Conc 30.5 g/dl (32-36); Mean Corpuscular Hemoglobin 30.6 pg (26-34); Mean Corpuscular Volume 100.4 fl (80-100); Mean Platelet Volume 9.8 fl (7.4-10.4); Platelet Count Result 227 k/mm3 (150-375); Red Blood Count 4.61 M/mm3 (4.6-6.20); Red Cell Distribution Width 15.2 % (11.5-14.5); White Blood Count 11.9 K/mm3 (4.5-10.0)
[2021-04-16 09:16] LABS: Alanine Aminotransferase 22 U/L (4-50); Albumin Level 4.4 g/dL (3.5-5.1); Alkaline Phosphatase 81 U/L (38-126); Anion Gap 6 mmol/L (8-16); Aspartate Amino Transferase 31 U/L (17-59); Bilirubin,Total 1.4 mg/dL (0.2-1.3); Blood Urea Nitrogen 18 mg/dL (9-20); Calcium 9.8 mg/dL (8.4-10.2); Carbon Dioxide 26 mmol/L (22-30); Chloride 107 mmol/L (98-107); Estimated Glomerular Filt Rate 54; Glucose 105 mg/dL (65-110); Potassium 4.5 mmol/L (3.4-5.0); Sodium 139 mmol/L (137-145)
[2021-04-16 10:14] LABS: Lithium 0.9 mmol/L (0.6-1.2)
[2021-04-16 10:39] LABS: T4 Thyroxine 7.99 ug/dL (5.53-11.0)
== END 2021-04-16 08:31 | disposition home or self-care (01) ==
LOC: ANHLAB 08:38
PROVIDERS: PCP Student in an Organized Health Care Education/Training Program
DX: R79.89 Other specified abnormal findings of blood chemistry (principal); E87.8 Other disorders of electrolyte and fluid balance, not elsewhere classified; E53.9 Vitamin B deficiency, unspecified; E03.9 Hypothyroidism, unspecified
CPT/HCPCS: 36415; 80053; 80178; 82248; 84436; 84443; 85027

== ENCOUNTER 2021-07-07 07:58 | Outpatient (CLI) | payer MEDICARE, SELFPAY ==
[2021-07-07 08:47] LABS: Hematocrit 43.7 % (42.0-52.0); Hemoglobin 13.8 g/dL (14.0-18.0); Mean Corpuscular HGB Conc 31.6 g/dl (32-36); Mean Corpuscular Hemoglobin 31.7 pg (26-34); Mean Corpuscular Volume 100.2 fl (80-100); Mean Platelet Volume 9.8 fl (7.4-10.4); Platelet Count Result 219 k/mm3 (150-375); Red Blood Count 4.36 M/mm3 (4.6-6.20); Red Cell Distribution Width 14.8 % (11.5-14.5); White Blood Count 11.7 K/mm3 (4.5-10.0)
[2021-07-07 08:55] LABS: Alanine Aminotransferase 21 U/L (4-50); Albumin Level 4.3 g/dL (3.5-5.1); Alkaline Phosphatase 70 U/L (38-126); Anion Gap 6 mmol/L (8-16); Aspartate Amino Transferase 27 U/L (17-59); Bilirubin,Total 1.4 mg/dL (0.2-1.3); Blood Urea Nitrogen 15 mg/dL (9-20); Calcium 9.8 mg/dL (8.4-10.2); Carbon Dioxide 28 mmol/L (22-30); Chloride 104 mmol/L (98-107); Estimated Glomerular Filt Rate 54; Glucose 100 mg/dL (65-110); Potassium 4.5 mmol/L (3.4-5.0); Sodium 138 mmol/L (137-145)
== END 2021-07-07 07:59 | disposition home or self-care (01) ==
LOC: ANHLAB 08:07
PROVIDERS: PCP Student in an Organized Health Care Education/Training Program
DX: R79.89 Other specified abnormal findings of blood chemistry (principal); E87.8 Other disorders of electrolyte and fluid balance, not elsewhere classified; E53.9 Vitamin B deficiency, unspecified
CPT/HCPCS: 36415; 80053; 80178; 82248; 85027

== ENCOUNTER 2021-08-14 11:31 | Outpatient (CLI) | payer MEDICARE, SELFPAY ==
[2021-08-14 11:52] LABS: Basophils Absolute Auto 0.1 K/mm3 (0.0-0.1); Basophils Percent Auto 0.6 % (0.2-1.2); Eosinophils Absolute Auto 0.1 K/mm3 (0-0.3); Eosinophils Percent Auto 0.9 % (0-4.4); Hematocrit 47.6 % (42.0-52.0); Hemoglobin 14.4 g/dL (14.0-18.0); Immature Granulocyte Absolute 0.05 K/mm3 (0.00-0.031); Immature Granulocyte Percent A 0.4 % (0-0.5); Lymphocytes Absolute Auto 6.09 K/mm3 (0.9-3.2); Lymphocytes Percent Auto 48.1 % (18.3-44.2); Mean Corpuscular HGB Conc 30.3 g/dl (32-36); Mean Corpuscular Hemoglobin 31.2 pg (26-34); Mean Platelet Volume 9.3 fl (7.4-10.4); Monocytes Absolute Auto 1.3 K/mm3 (0.1-0.6); Neutrophils Absolute Auto 5.1 K/mm3 (1.3-6.7); Platelet Count Result 311 k/mm3 (150-375); Red Blood Count 4.62 M/mm3 (4.6-6.20); Red Cell Distribution Width 15.1 % (11.5-14.5); White Blood Count 12.7 K/mm3 (4.5-10.0)
[2021-08-14 11:57] LABS: Atypical Lymphocytes Present; Platelet Estimate Adequate (Adequate)
[2021-08-14 13:13] LABS: Alanine Aminotransferase 24 U/L (4-50); Albumin Level 4.3 g/dL (3.5-5.1); Alkaline Phosphatase 80 U/L (38-126); Anion Gap 7 mmol/L (8-16); Aspartate Amino Transferase 53 U/L (17-59); Bilirubin,Total 1.3 mg/dL (0.2-1.3); Blood Urea Nitrogen 17 mg/dL (9-20); Calcium 10.1 mg/dL (8.4-10.2); Carbon Dioxide 29 mmol/L (22-30); Chloride 103 mmol/L (98-107); Estimated Glomerular Filt Rate 54; Glucose 73 mg/dL (65-110); Potassium 4.3 mmol/L (3.4-5.0); Sodium 139 mmol/L (137-145)
[2021-08-14 16:02] LABS: Lactate Dehydrogenase 343 U/L (313-618)
== END 2021-08-14 11:32 | disposition home or self-care (01) ==
LOC: ANHLAB 11:33
PROVIDERS: PCP Student in an Organized Health Care Education/Training Program; Visit Provider Internal Medicine Hematology & Oncology
DX: C84.90 Mature T/NK-cell lymphomas, unspecified, unspecified site (principal)
CPT/HCPCS: 36415; 80053; 83615; 85025

== ENCOUNTER 2021-11-07 08:26 | Outpatient (CLI) | payer MEDICARE, SELFPAY ==
[2021-11-07 09:22] LABS: Alanine Aminotransferase 21 U/L (4-50); Albumin Level 4.3 g/dL (3.5-5.1); Alkaline Phosphatase 70 U/L (38-126); Aspartate Amino Transferase 30 U/L (17-59); Bilirubin,Total 1.4 mg/dL (0.2-1.3)
[2021-11-07 10:19] LABS: T4 Thyroxine 8.08 ug/dL (5.53-11.0)
== END 2021-11-07 08:27 | disposition home or self-care (01) ==
PROVIDERS: PCP Student in an Organized Health Care Education/Training Program
DX: R78.89 Finding of other specified substances, not normally found in blood (principal); E03.9 Hypothyroidism, unspecified; R94.5 Abnormal results of liver function studies
CPT/HCPCS: 36415; 80076; 80178; 84436; 84443

== ENCOUNTER 2022-04-30 08:48 | Outpatient (CLI) | payer MEDICARE, SELFPAY ==
[2022-04-30 09:23] LABS: Basophils Absolute Auto 0.1 K/mm3 (0.0-0.1); Basophils Percent Auto 0.7 % (0.2-1.2); Eosinophils Absolute Auto 0.2 K/mm3 (0-0.3); Eosinophils Percent Auto 1.2 % (0-4.4); Hematocrit 48.5 % (42.0-52.0); Hemoglobin 14.5 g/dL (14.0-18.0); Immature Granulocyte Absolute 0.03 K/mm3 (0.00-0.031); Immature Granulocyte Percent A 0.2 % (0-0.5); Lymphocytes Absolute Auto 6.24 K/mm3 (0.9-3.2); Lymphocytes Percent Auto 51.6 % (18.3-44.2); Mean Corpuscular HGB Conc 29.9 g/dl (32-36); Mean Corpuscular Hemoglobin 30.7 pg (26-34); Mean Corpuscular Volume 102.8 fl (80-100); Mean Platelet Volume 9.8 fl (7.4-10.4); Monocytes Percent Auto 8.4 % (2.6-8.5); Neutrophils Absolute Auto 4.6 K/mm3 (1.3-6.7); Neutrophils Percent Auto 37.9 % (45.5-73.1); Platelet Count Result 227 k/mm3 (150-375); Red Blood Count 4.72 M/mm3 (4.6-6.20); Red Cell Distribution Width 14.6 % (11.5-14.5); White Blood Count 12.1 K/mm3 (4.5-10.0)
[2022-04-30 09:32] LABS: Alanine Aminotransferase 23 U/L (6-50); Albumin Level 4.4 g/dL (3.5-5.1); Alkaline Phosphatase 71 U/L (38-126); Anion Gap 6 mmol/L (8-16); Aspartate Amino Transferase 29 U/L (17-59); Bilirubin,Total 1.4 mg/dL (0.2-1.3); Blood Urea Nitrogen 17 mg/dL (9-20); Calcium 10.2 mg/dL (8.4-10.2); Carbon Dioxide 30 mmol/L (22-30); Chloride 105 mmol/L (98-107); Estimated Glomerular Filt Rate 54; Glucose 101 mg/dL (65-110); Potassium 4.5 mmol/L (3.4-5.0); Sodium 141 mmol/L (137-145)
[2022-04-30 10:23] LABS: Iron 118 ug/dL (49-181)
[2022-04-30 10:32] LABS: Percent Iron Saturation 30 % (20-50)
[2022-04-30 10:35] LABS: Lithium 0.9 mmol/L (0.6-1.2)
[2022-04-30 10:48] LABS: Vitamin D 25 Hydroxy 63.1 ng/mL
== END 2022-04-30 08:49 | disposition home or self-care (01) ==
PROVIDERS: PCP Student in an Organized Health Care Education/Training Program
DX: Z51.81 Encounter for therapeutic drug level monitoring (principal); D64.9 Anemia, unspecified; E87.8 Other disorders of electrolyte and fluid balance, not elsewhere classified; E53.9 Vitamin B deficiency, unspecified; E55.9 Vitamin D deficiency, unspecified; K72.90 Hepatic failure, unspecified without coma; E03.9 Hypothyroidism, unspecified
CPT/HCPCS: 36415; 80053; 80178; 82248; 82306; 82607; 83540; 83550; 84436; 84443; 85025

== ENCOUNTER 2022-07-29 08:58 | Outpatient (CLI) | payer MEDICARE, SELFPAY ==
--- NOTE | ~2022-07-29 | MR_ITS ---
MRI of the brain Clinical History: Balance problems, dizziness Technique: Axial and sagittal T1-weighted images were acquired. These were followed by axial T2-weigh edith, diffusion weighted, gradient, and FLAIR images. Following intravenous administration of 19 cc Mu ltiHance gadolinium, T1-weighted fat-sat imaging was performed in the axial and coronal planes. COMPARISON: 03/23/2020 Findings: There is no acute infarct, intracranial hemorrhage, or mass lesion. There are mild chronic white matter changes in the periventricular white matter, similar to prior exam. Ventricles and subarachnoid spaces are unremarkable. Orbits are unremarkable. Paranasal sinuses and m astoid air cells are clear. Major intracranial flow voids appear intact. Sagittal midline structures are intact. No abnormal postcontrast enhancement identified. IMPRESSION: No acute abnormality. Mild chronic white matter changes. Reviewed, dictated and finalized at location . [employer]
== END 2022-07-29 08:59 | disposition home or self-care (01) ==
PROVIDERS: PCP Student in an Organized Health Care Education/Training Program; Visit Provider Student in an Organized Health Care Education/Training Program
DX: R26.89 Other abnormalities of gait and mobility (principal); R42 Dizziness and giddiness; R93.0 Abnormal findings on diagnostic imaging of skull and head, not elsewhere classified
CPT/HCPCS: 70553; A9577

== ENCOUNTER 2022-08-12 08:16 | Outpatient (CLI) | payer MEDICARE, SELFPAY ==
[2022-08-12 08:31] LABS: Basophils Absolute Auto 0.1 K/mm3 (0.0-0.1); Basophils Percent Auto 0.7 % (0.2-1.2); Eosinophils Absolute Auto 0.2 K/mm3 (0-0.3); Eosinophils Percent Auto 1.3 % (0-4.4); Hematocrit 45.8 % (42.0-52.0); Hemoglobin 14.2 g/dL (14.0-18.0); Immature Granulocyte Absolute 0.04 K/mm3 (0.00-0.031); Immature Granulocyte Percent A 0.3 % (0-0.5); Lymphocytes Absolute Auto 6.76 K/mm3 (0.9-3.2); Lymphocytes Percent Auto 55.2 % (18.3-44.2); Mean Corpuscular Hemoglobin 31.5 pg (26-34); Mean Corpuscular Volume 101.6 fl (80-100); Mean Platelet Volume 9.7 fl (7.4-10.4); Monocytes Percent Auto 8.1 % (2.6-8.5); Neutrophils Absolute Auto 4.2 K/mm3 (1.3-6.7); Neutrophils Percent Auto 34.4 % (45.5-73.1); Platelet Count Result 233 k/mm3 (150-375); Red Blood Count 4.51 M/mm3 (4.6-6.20); Red Cell Distribution Width 14.8 % (11.5-14.5); White Blood Count 12.3 K/mm3 (4.5-10.0)
[2022-08-12 08:40] LABS: Atypical Lymphocytes Present; Platelet Estimate Adequate (Adequate); Schistocytes None Seen (NORMAL)
[2022-08-12 10:33] LABS: Iron 88 ug/dL (49-181)
[2022-08-12 10:35] LABS: Alanine Aminotransferase 25 U/L (6-50); Albumin Level 4.2 g/dL (3.5-5.1); Alkaline Phosphatase 64 U/L (38-126); Anion Gap 6 mmol/L (8-16); Aspartate Amino Transferase 31 U/L (17-59); Bilirubin,Total 1.2 mg/dL (0.2-1.3); Blood Urea Nitrogen 19 mg/dL (9-20); Carbon Dioxide 31 mmol/L (22-30); Chloride 104 mmol/L (98-107); Estimated Glomerular Filt Rate 54; Glucose 102 mg/dL (65-110); Lactate Dehydrogenase 138 U/L (120-246); Potassium 4.3 mmol/L (3.4-5.0); Sodium 141 mmol/L (137-145)
[2022-08-12 10:47] LABS: Percent Iron Saturation 24 % (20-50)
[2022-08-12 11:00] LABS: Alanine Aminotransferase 25 U/L (6-50); Albumin Level 4.3 g/dL (3.5-5.1); Alkaline Phosphatase 64 U/L (38-126); Aspartate Amino Transferase 30 U/L (17-59); Bilirubin,Total 1.2 mg/dL (0.2-1.3)
[2022-08-12 11:22] LABS: Lithium 1.1 mmol/L (0.6-1.2)
[2022-08-12 11:28] LABS: T4 Thyroxine 7.58 ug/dL (5.53-11.0)
== END 2022-08-12 08:17 | disposition home or self-care (01) ==
LOC: ANHLAB 08:18
PROVIDERS: PCP Student in an Organized Health Care Education/Training Program; Visit Provider Internal Medicine Hematology & Oncology
DX: C84.90 Mature T/NK-cell lymphomas, unspecified, unspecified site (principal); E06.3 Autoimmune thyroiditis; D64.9 Anemia, unspecified; R78.89 Finding of other specified substances, not normally found in blood; K76.9 Liver disease, unspecified
CPT/HCPCS: 36415; 80053; 80076; 80178; 83540; 83550; 83615; 84436; 84443; 85025

== ENCOUNTER 2022-09-09 12:15 | Outpatient (CLI) | payer MEDICARE, SELFPAY ==
[2022-09-09 12:42] LABS: Hematocrit 46.7 % (42.0-52.0); Hemoglobin 14.4 g/dL (14.0-18.0); Mean Corpuscular HGB Conc 30.8 g/dl (32-36); Mean Corpuscular Hemoglobin 31.5 pg (26-34); Mean Corpuscular Volume 102.2 fl (80-100); Mean Platelet Volume 9.7 fl (7.4-10.4); Platelet Count Result 231 k/mm3 (150-375); Red Blood Count 4.57 M/mm3 (4.6-6.20); Red Cell Distribution Width 14.4 % (11.5-14.5); White Blood Count 11.1 K/mm3 (4.5-10.0)
[2022-09-09 12:56] LABS: Alanine Aminotransferase 25 U/L (6-50); Albumin Level 4.3 g/dL (3.5-5.1); Alkaline Phosphatase 69 U/L (38-126); Anion Gap 3 mmol/L (8-16); Aspartate Amino Transferase 29 U/L (17-59); Bilirubin,Total 0.9 mg/dL (0.2-1.3); Blood Urea Nitrogen 22 mg/dL (9-20); Carbon Dioxide 31 mmol/L (22-30); Chloride 104 mmol/L (98-107); Estimated Glomerular Filt Rate 45; Glucose 97 mg/dL (65-110); Potassium 4.6 mmol/L (3.4-5.0); Sodium 138 mmol/L (137-145)
[2022-09-11 14:28] LABS: NIL 0.05 IU/mL; Quantiferon TB Plus, 1T NEGATIVE (NEGATIVE); TB1-NIL <0.00 IU/mL; TB2-NIL <0.00 IU/mL
== END 2022-09-09 12:16 | disposition home or self-care (01) ==
PROVIDERS: PCP Student in an Organized Health Care Education/Training Program; Visit Provider Dermatology
DX: L40.0 Psoriasis vulgaris (principal)
CPT/HCPCS: 36415; 80053; 85027; 86480

== ENCOUNTER 2022-11-10 08:04 | Outpatient (CLI) | payer MEDICARE, SELFPAY ==
[2022-11-10 09:06] LABS: Basophils Absolute Auto 0.1 K/mm3 (0.0-0.1); Basophils Percent Auto 0.7 % (0.2-1.2); Eosinophils Absolute Auto 0.1 K/mm3 (0-0.3); Eosinophils Percent Auto 1.2 % (0-4.4); Hemoglobin 14.3 g/dL (14.0-18.0); Immature Granulocyte Absolute 0.04 K/mm3 (0.00-0.031); Immature Granulocyte Percent A 0.4 % (0-0.5); Lymphocytes Absolute Auto 5.27 K/mm3 (0.9-3.2); Lymphocytes Percent Auto 47.6 % (18.3-44.2); Mean Corpuscular HGB Conc 31.1 g/dl (32-36); Mean Corpuscular Hemoglobin 31.3 pg (26-34); Mean Corpuscular Volume 100.7 fl (80-100); Mean Platelet Volume 10.5 fl (7.4-10.4); Monocytes Percent Auto 8.6 % (2.6-8.5); Neutrophils Absolute Auto 4.6 K/mm3 (1.3-6.7); Neutrophils Percent Auto 41.5 % (45.5-73.1); Platelet Count Result 233 k/mm3 (150-375); Red Blood Count 4.57 M/mm3 (4.6-6.20); Red Cell Distribution Width 14.6 % (11.5-14.5); White Blood Count 11.1 K/mm3 (4.5-10.0)
[2022-11-10 09:19] LABS: Alanine Aminotransferase 25 U/L (6-50); Albumin Level 4.4 g/dL (3.5-5.1); Alkaline Phosphatase 65 U/L (38-126); Anion Gap 3 mmol/L (8-16); Aspartate Amino Transferase 30 U/L (17-59); Bilirubin,Total 1.3 mg/dL (0.2-1.3); Blood Urea Nitrogen 15 mg/dL (9-20); Calcium 9.7 mg/dL (8.4-10.2); Carbon Dioxide 32 mmol/L (22-30); Chloride 106 mmol/L (98-107); Estimated Glomerular Filt Rate 49; Glucose 92 mg/dL (65-110); Potassium 4.7 mmol/L (3.4-5.0); Sodium 141 mmol/L (137-145)
[2022-11-10 10:37] LABS: Iron 78 ug/dL (49-181)
[2022-11-10 10:41] LABS: Percent Iron Saturation 22 % (20-50)
[2022-11-10 13:25] LABS: T4 Thyroxine 7.33 ug/dL (5.53-11.0)
== END 2022-11-10 08:05 | disposition home or self-care (01) ==
PROVIDERS: PCP Student in an Organized Health Care Education/Training Program
DX: R78.89 Finding of other specified substances, not normally found in blood (principal); D64.9 Anemia, unspecified; E03.9 Hypothyroidism, unspecified; K76.9 Liver disease, unspecified; E61.1 Iron deficiency; E87.8 Other disorders of electrolyte and fluid balance, not elsewhere classified
CPT/HCPCS: 36415; 80053; 80178; 82248; 83540; 83550; 84436; 84443; 85025

== ENCOUNTER 2023-01-22 08:20 | Outpatient (CLI) | payer MEDICARE, SELFPAY ==
[2023-01-22 08:54] LABS: Basophils Absolute Auto 0.1 K/mm3 (0.0-0.1); Basophils Percent Auto 0.8 % (0.2-1.2); Eosinophils Absolute Auto 0.1 K/mm3 (0-0.3); Eosinophils Percent Auto 1.3 % (0-4.4); Hematocrit 45.9 % (42.0-52.0); Immature Granulocyte Absolute 0.03 K/mm3 (0.00-0.031); Immature Granulocyte Percent A 0.3 % (0-0.5); Lymphocytes Absolute Auto 4.67 K/mm3 (0.9-3.2); Lymphocytes Percent Auto 46.9 % (18.3-44.2); Mean Corpuscular HGB Conc 30.5 g/dl (32-36); Mean Corpuscular Volume 101.5 fl (80-100); Mean Platelet Volume 9.7 fl (7.4-10.4); Monocytes Absolute Auto 0.9 K/mm3 (0.1-0.6); Monocytes Percent Auto 9.2 % (2.6-8.5); Neutrophils Absolute Auto 4.1 K/mm3 (1.3-6.7); Neutrophils Percent Auto 41.5 % (45.5-73.1); Platelet Count Result 216 k/mm3 (150-375); Red Blood Count 4.52 M/mm3 (4.6-6.20)
[2023-01-22 09:09] LABS: Alanine Aminotransferase 29 U/L (6-50); Albumin Level 4.2 g/dL (3.5-5.1); Alkaline Phosphatase 63 U/L (38-126); Aspartate Amino Transferase 38 U/L (17-59); Bilirubin,Total 0.8 mg/dL (0.2-1.3)
[2023-01-22 09:26] LABS: Lithium 0.9 mmol/L (0.6-1.2)
[2023-01-22 09:29] LABS: T4 Thyroxine 7.54 ug/dL (5.53-11.0)
== END 2023-01-22 08:21 | disposition home or self-care (01) ==
PROVIDERS: PCP Student in an Organized Health Care Education/Training Program
DX: D64.9 Anemia, unspecified (principal); E03.9 Hypothyroidism, unspecified; K76.9 Liver disease, unspecified; R78.89 Finding of other specified substances, not normally found in blood
CPT/HCPCS: 36415; 80076; 80178; 84436; 84443; 85025

== ENCOUNTER 2023-04-12 07:49 | Outpatient (CLI) | payer MEDICARE, SELFPAY ==
[2023-04-12 08:49] LABS: Alanine Aminotransferase 26 U/L (6-50); Albumin Level 4.3 g/dL (3.5-5.1); Alkaline Phosphatase 62 U/L (38-126); Aspartate Amino Transferase 34 U/L (17-59)
[2023-04-12 09:02] LABS: Lithium 1.1 mmol/L (0.6-1.2)
[2023-04-12 09:08] LABS: T4 Thyroxine 7.57 ug/dL (5.53-11.0)
== END 2023-04-12 07:50 | disposition home or self-care (01) ==
PROVIDERS: PCP Student in an Organized Health Care Education/Training Program
DX: R79.89 Other specified abnormal findings of blood chemistry (principal); E03.9 Hypothyroidism, unspecified; K76.9 Liver disease, unspecified
CPT/HCPCS: 36415; 80076; 80178; 84436; 84443; 85025

== ENCOUNTER 2023-07-02 07:14 | Outpatient (CLI) | payer MEDICARE, SELFPAY ==
[2023-07-02 08:20] LABS: Alanine Aminotransferase 23 U/L (6-50); Albumin Level 4.2 g/dL (3.5-5.1); Alkaline Phosphatase 68 U/L (38-126); Aspartate Amino Transferase 28 U/L (17-59)
[2023-07-02 13:10] LABS: T4 Thyroxine 7.96 ug/dL (5.53-11.0)
== END 2023-07-02 07:15 | disposition home or self-care (01) ==
PROVIDERS: PCP Student in an Organized Health Care Education/Training Program
DX: R78.89 Finding of other specified substances, not normally found in blood (principal); E03.9 Hypothyroidism, unspecified; K76.9 Liver disease, unspecified
CPT/HCPCS: 36415; 80076; 80178; 84436; 84443

== ENCOUNTER 2023-07-09 07:33 | Outpatient (CLI) | payer MEDICARE, SELFPAY ==
[2023-07-09 08:36] LABS: Basophils Absolute Auto 0.1 K/mm3 (0.0-0.1); Basophils Percent Auto 0.7 % (0.2-1.2); Eosinophils Absolute Auto 0.1 K/mm3 (0-0.3); Eosinophils Percent Auto 1.2 % (0-4.4); Hematocrit 46.1 % (42.0-52.0); Immature Granulocyte Absolute 0.03 K/mm3 (0.00-0.031); Immature Granulocyte Percent A 0.2 % (0-0.5); Lymphocytes Absolute Auto 5.97 K/mm3 (0.9-3.2); Lymphocytes Percent Auto 49.4 % (18.3-44.2); Mean Corpuscular HGB Conc 30.4 g/dl (32-36); Mean Corpuscular Hemoglobin 30.6 pg (26-34); Mean Corpuscular Volume 100.7 fl (80-100); Mean Platelet Volume 10.2 fl (7.4-10.4); Monocytes Absolute Auto 1.1 K/mm3 (0.1-0.6); Monocytes Percent Auto 8.7 % (2.6-8.5); Neutrophils Absolute Auto 4.8 K/mm3 (1.3-6.7); Neutrophils Percent Auto 39.8 % (45.5-73.1); Platelet Count Result 243 k/mm3 (150-375); Red Blood Count 4.58 M/mm3 (4.6-6.20); Red Cell Distribution Width 14.4 % (11.5-14.5); White Blood Count 12.1 K/mm3 (4.5-10.0)
[2023-07-09 08:57] LABS: Alanine Aminotransferase 20 U/L (6-50); Albumin Level 4.2 g/dL (3.5-5.1); Alkaline Phosphatase 70 U/L (38-126); Anion Gap 9 mmol/L (8-16); Aspartate Amino Transferase 28 U/L (17-59); Bilirubin,Total 1.1 mg/dL (0.2-1.3); Blood Urea Nitrogen 24 mg/dL (9-20); Calcium 10.4 mg/dL (8.4-10.2); Carbon Dioxide 24 mmol/L (22-30); Chloride 106 mmol/L (98-107); Cholesterol 141 mg/dL (0-200); Estimated Glomerular Filt Rate 49; Glucose 99 mg/dL (65-110); HDL Direct 34 mg/dL; Potassium 4.4 mmol/L (3.4-5.0); Sodium 139 mmol/L (137-145); Triglycerides 164 mg/dL (<150)
[2023-07-09 09:08] LABS: LDL Cholesterol Direct 71 mg/dL
[2023-07-09 09:25] LABS: Prostate Specific Antigen 1.5 ng/mL (< OR = 4.0)
[2023-07-09 09:48] LABS: Appearance Urine Cloudy (Clear); Bacteria Urine None Seen /hpf; Bilirubin Urine Negative (Negative); Blood Urine Negative (Negative); Color Urine Yellow (Yellow); Glucose Urine UA Negative (Negative); Ketones Urine Negative (Negative); Leukocyte Esterase Ur Negative LEU/UL (Negative); Nitrate Urine Negative (Negative); Non Pathogenic Casts 0-2; Protein Urine Negative (Negative); RBC Urine 0-2 /hpf (0-2); Specific Grav Ur 1.008 (1.001-1.035); Squamous Epithelial Cell Urine None seen /hpf (Few); Urobilinogen Urine 0.2 mg/dL (<2.0); WBC Urine 0-5 /hpf
[2023-07-09 09:55] LABS: Add Urine Microscopic? YES
== END 2023-07-09 07:34 | disposition home or self-care (01) ==
LOC: ANHLAB 07:37
PROVIDERS: PCP Student in an Organized Health Care Education/Training Program; Visit Provider Student in an Organized Health Care Education/Training Program
DX: R32 Unspecified urinary incontinence (principal); E03.9 Hypothyroidism, unspecified; E78.5 Hyperlipidemia, unspecified; J43.9 Emphysema, unspecified; F31.9 Bipolar disorder, unspecified; C84.90 Mature T/NK-cell lymphomas, unspecified, unspecified site; Z12.5 Encounter for screening for malignant neoplasm of prostate
CPT/HCPCS: 36415; 80053; 80061; 81001; 84153; 84443; 85025; G0103

== ENCOUNTER 2023-08-18 09:05 | Outpatient (CLI) | payer MEDICARE, SELFPAY ==
[2023-08-18 09:22] LABS: Basophils Absolute Auto 0.1 K/mm3 (0.0-0.1); Basophils Percent Auto 0.7 % (0.2-1.2); Eosinophils Absolute Auto 0.2 K/mm3 (0-0.3); Eosinophils Percent Auto 1.4 % (0-4.4); Hematocrit 44.8 % (42.0-52.0); Immature Granulocyte Absolute 0.03 K/mm3 (0.00-0.031); Immature Granulocyte Percent A 0.3 % (0-0.5); Lymphocytes Absolute Auto 5.48 K/mm3 (0.9-3.2); Lymphocytes Percent Auto 47.4 % (18.3-44.2); Mean Corpuscular HGB Conc 31.3 g/dl (32-36); Mean Corpuscular Volume 99.3 fl (80-100); Mean Platelet Volume 9.9 fl (7.4-10.4); Monocytes Percent Auto 8.8 % (2.6-8.5); Neutrophils Absolute Auto 4.8 K/mm3 (1.3-6.7); Neutrophils Percent Auto 41.4 % (45.5-73.1); Platelet Count Result 221 k/mm3 (150-375); Red Blood Count 4.51 M/mm3 (4.6-6.20); Red Cell Distribution Width 14.5 % (11.5-14.5); White Blood Count 11.6 K/mm3 (4.5-10.0)
[2023-08-18 09:26] LABS: Atypical Lymphocytes Present; Platelet Estimate Adequate (Adequate); Schistocytes None Seen (NORMAL)
[2023-08-18 09:28] LABS: Blood Urea Nitrogen 19 mg/dL (8-26); Carbon Dioxide 30 mmol/L (22-30); Chloride 104 mmol/L (98-109); Estimated Glomerular Filt Rate 42; Glucose 95 mg/dL (70-105); Ionized Calcium (POC) 1.32 mmol/L (1.11-1.31); Potassium 4.3 mmol/L (3.5-4.9); Sodium 141 mmol/L (138-146)
[2023-08-18 16:47] LABS: Alanine Aminotransferase 21 U/L (6-50); Albumin Level 3.9 g/dL (3.5-5.1); Alkaline Phosphatase 76 U/L (38-126); Anion Gap 5 mmol/L (8-16); Aspartate Amino Transferase 27 U/L (17-59); Bilirubin,Total 1.6 mg/dL (0.2-1.3); Blood Urea Nitrogen 17 mg/dL (9-20); Calcium 9.8 mg/dL (8.4-10.2); Carbon Dioxide 28 mmol/L (22-30); Chloride 105 mmol/L (98-107); Estimated Glomerular Filt Rate 45; Glucose 84 mg/dL (65-110); Lactate Dehydrogenase 140 U/L (120-246); Potassium 4.3 mmol/L (3.4-5.0); Sodium 138 mmol/L (137-145)
== END 2023-08-18 09:06 | disposition home or self-care (01) ==
LOC: ANHLAB 09:08
PROVIDERS: PCP Student in an Organized Health Care Education/Training Program; Visit Provider Internal Medicine Hematology & Oncology
DX: C84.90 Mature T/NK-cell lymphomas, unspecified, unspecified site (principal)
CPT/HCPCS: 36415; 80047; 80053; 83615; 85025

== ENCOUNTER 2023-09-03 08:50 | Outpatient (CLI) | payer MEDICARE, SELFPAY ==
[2023-09-03 09:32] LABS: Lithium 1.2 mmol/L (0.6-1.2)
[2023-09-03 09:34] LABS: Alanine Aminotransferase 27 U/L (6-50); Albumin Level 4.1 g/dL (3.5-5.1); Alkaline Phosphatase 76 U/L (38-126); Aspartate Amino Transferase 32 U/L (17-59); Bilirubin,Total 1.4 mg/dL (0.2-1.3)
== END 2023-09-03 08:51 | disposition home or self-care (01) ==
PROVIDERS: PCP Student in an Organized Health Care Education/Training Program; Visit Provider Registered Nurse Psychiatric/Mental Health, Adult
DX: R79.89 Other specified abnormal findings of blood chemistry (principal); E03.9 Hypothyroidism, unspecified; K76.9 Liver disease, unspecified
CPT/HCPCS: 36415; 80076; 80178; 84436; 84443

== ENCOUNTER 2023-11-01 07:19 | Outpatient (CLI) | payer MEDICARE, SELFPAY ==
[2023-11-01 08:15] LABS: Alanine Aminotransferase 19 U/L (6-50); Albumin Level 4.1 g/dL (3.5-5.1); Alkaline Phosphatase 79 U/L (38-126); Aspartate Amino Transferase 30 U/L (17-59); Bilirubin,Total 1.6 mg/dL (0.2-1.3)
[2023-11-01 10:38] LABS: Iron 64 ug/dL (49-181)
[2023-11-01 10:42] LABS: Percent Iron Saturation 21 % (20-50)
[2023-11-01 10:44] LABS: Lithium 1.2 mmol/L (0.6-1.2)
[2023-11-01 14:13] LABS: T4 Thyroxine 7.36 ug/dL (5.53-11.0)
[2023-11-01 14:35] LABS: Basophils Absolute Auto 0.1 K/mm3 (0.0-0.1); Basophils Percent Auto 0.8 % (0.2-1.2); Eosinophils Absolute Auto 0.1 K/mm3 (0-0.3); Hematocrit 45.3 % (42.0-52.0); Hemoglobin 13.9 g/dL (14.0-18.0); Immature Granulocyte Absolute 0.03 K/mm3 (0.00-0.031); Immature Granulocyte Percent A 0.3 % (0-0.5); Lymphocytes Absolute Auto 4.89 K/mm3 (0.9-3.2); Lymphocytes Percent Auto 41.7 % (18.3-44.2); Mean Corpuscular HGB Conc 30.7 g/dl (32-36); Mean Corpuscular Hemoglobin 31.1 pg (26-34); Mean Corpuscular Volume 101.3 fl (80-100); Mean Platelet Volume 11.1 fl (7.4-10.4); Monocytes Percent Auto 8.4 % (2.6-8.5); Neutrophils Absolute Auto 5.6 K/mm3 (1.3-6.7); Neutrophils Percent Auto 47.8 % (45.5-73.1); Platelet Count Result 233 k/mm3 (150-375); Red Blood Count 4.47 M/mm3 (4.6-6.20); Red Cell Distribution Width 14.7 % (11.5-14.5); White Blood Count 11.7 K/mm3 (4.5-10.0)
== END 2023-11-01 07:20 | disposition home or self-care (01) ==
PROVIDERS: PCP Student in an Organized Health Care Education/Training Program; Visit Provider Registered Nurse Psychiatric/Mental Health, Adult
DX: E03.9 Hypothyroidism, unspecified (principal); K76.9 Liver disease, unspecified; R79.89 Other specified abnormal findings of blood chemistry; D64.9 Anemia, unspecified
CPT/HCPCS: 36415; 80076; 80178; 83540; 83550; 84436; 84443; 85025

== ENCOUNTER 2023-11-06 10:00 | Emergency (ER) | payer MEDICARE, SELFPAY ==
[2023-11-06 10:00] VITALS: PULSE 60
--- NOTE | 2023-11-06 10:14 | ECG_ITS ---
Measurements Intervals [place] Rate: 59 P: 15 [place]: 220 QRS: -20 QRSD: 136 T: 41 QT: 449 Avg RR: 1014 QTc: 447 QTcB: 445 QTcF: 446 Interpretive Statements SINUS BRADYCARDIA WITH FIRST DEGREE AV BLOCK RIGHT BUNDLE BRANCH BLOCK [120+ ms QRS DURATION, UPRIGHT V1, 40+ ms S IN I/aVL/V4/V5/V6} ABNORMAL ECG SEE SCANNED COPY FOR SIGNATURE MTDD
[2023-11-06 10:16] VITALS: BP 107/66; PULSE 60; RESP 21; TEMP 36.7; O2SAT 95
[2023-11-06 10:23] LABS: Basophils Absolute Auto 0.1 K/mm3 (0.0-0.1); Basophils Percent Auto 0.5 % (0.2-1.2); Eosinophils Absolute Auto 0.2 K/mm3 (0-0.3); Eosinophils Percent Auto 1.3 % (0-4.4); Hematocrit 43.4 % (42.0-52.0); Hemoglobin 13.5 g/dL (14.0-18.0); Immature Granulocyte Absolute 0.04 K/mm3 (0.00-0.031); Immature Granulocyte Percent A 0.4 % (0-0.5); Lymphocytes Absolute Auto 3.87 K/mm3 (0.9-3.2); Lymphocytes Percent Auto 34.3 % (18.3-44.2); Mean Corpuscular HGB Conc 31.1 g/dl (32-36); Mean Corpuscular Hemoglobin 30.8 pg (26-34); Mean Corpuscular Volume 98.9 fl (80-100); Mean Platelet Volume 9.8 fl (7.4-10.4); Monocytes Percent Auto 8.8 % (2.6-8.5); Neutrophils Absolute Auto 6.2 K/mm3 (1.3-6.7); Neutrophils Percent Auto 54.7 % (45.5-73.1); Platelet Count Result 260 k/mm3 (150-375); Red Blood Count 4.39 M/mm3 (4.6-6.20); Red Cell Distribution Width 14.5 % (11.5-14.5); White Blood Count 11.3 K/mm3 (4.5-10.0)
[2023-11-06 10:31] VITALS: BP 104/67; PULSE 60; RESP 18; TEMP 36.7; O2SAT 90
[2023-11-06 10:33] LABS: Prothrombin Time 14.1 Seconds (11.1-14.7)
[2023-11-06 10:34] LABS: Alanine Aminotransferase 23 U/L (6-50); Alkaline Phosphatase 74 U/L (38-126); Anion Gap 4 mmol/L (4-12); Aspartate Amino Transferase 49 U/L (17-59); Bilirubin,Total 1.6 mg/dL (0.2-1.3); Blood Urea Nitrogen 18 mg/dL (9-20); Calcium 10.5 mg/dL (8.4-10.2); Carbon Dioxide 28 mmol/L (22-30); Chloride 107 mmol/L (98-107); Estimated CRCL calculation 41 ml/min; Estimated Glomerular Filt Rate 49; Glucose 90 mg/dL (65-110); Lipase 113 U/L (23-300); Partial Thromboplastin Time 31.1 Seconds (22.3-36.8); Potassium 4.2 mmol/L (3.4-5.0); Sodium 139 mmol/L (137-145)
[2023-11-06 10:35] LABS: Lactic Acid Reflex 1.2 mmol/L (0.7-2.0)
[2023-11-06 10:54] VITALS: BP 120/68; PULSE 62; RESP 17; TEMP 36.7; O2SAT 95
[2023-11-06 10:58] LABS: Influenza A QL RT-PCR Negative (Negative); Influenza B QL RT-PCR Negative (Negative); RSV RNA, RT-PCR Negative (Negative); SARS-CoV-2 RNA PCR Negative (Negative)
[2023-11-06 11:01] VITALS: BP 114/68; PULSE 61; RESP 15; TEMP 36.7; O2SAT 100
[2023-11-06 11:04] LABS: Appearance Urine Clear (Clear); Bilirubin Urine Negative (Negative); Blood Urine Negative (Negative); Color Urine Yellow (Yellow); Glucose Urine UA Negative (Negative); Ketones Urine Negative (Negative); Leukocyte Esterase Ur Negative LEU/UL (Negative); Nitrate Urine Negative (Negative); Protein Urine Negative (Negative); Specific Grav Ur 1.005 (1.001-1.035); pH Urine 6.5 (5.0-9.0)
[2023-11-06 11:06] LABS: Add Urine Microscopic? NO
[2023-11-06 11:31] VITALS: BP 112/67; PULSE 61; RESP 20; TEMP 36.6; O2SAT 95
--- NOTE | 2023-11-06 11:54 | ED.GENADULT ---
HPI - General Adult General Chief complaint: Weakness Stated complaint: diarrhea, weakness Time Seen by Provider: 11/06/23 10:04 History of Present Illness HPI narrative: 38-year-old male presents to the emergency department for evaluation of to 3 days of diarrhea. Patient denies any associated abdominal pain. Patient does have some increased generalized weakness but states he does feel strong enough to take care for self. Patient denies any associated pain. Patient states he has been eating and drinking okay. Patient has not modified his diet. states she is also able to help take care of him Related Data Home Medications Medication Instructions Recorded Confirmed cholecalciferol (vitamin D3) 25 1,000 unit PO DAILY 06/07/19 09/13/23 mcg (1,000 unit) capsule (Vitamin D3) fluoxetine 20 mg capsule (Prozac) 10 mg PO BID 06/07/19 09/13/23 albuterol sulfate 2.5 mg/3 mL 2.5 mg inhalation Q4-6H PRN 09/03/20 09/13/23 (0.083 %) solution for nebulization ixekizumab 80 mg/mL subcutaneous 80 mg subcut .biweekly 03/08/23 09/13/23 auto-injector (Taltz Autoinjector) levothyroxine 50 mcg tablet 50 mcg PO DAILY 03/08/23 09/13/23 lithium carbonate 300 mg capsule 300 mg PO BID 03/08/23 09/13/23 Allergies Allergy/AdvReac Type Severity Reaction Status Date / Time No Known Allergies Allergy Mild Verified 09/13/23 08:48 Review of Systems Review of Systems: All systems reviewed & are unremarkable except as noted in HPI and below [facility] Past Medical History Medical History Bipolar disorder Cerebrovascular accident Brain MRI in 03/2020 showed infarcts in both cerebellar hemispheres. Chronic kidney disease, stage 3 Baseline creatinine is around 1.50. Chronic obstructive pulmonary disease Chronic respiratory failure with hypoxia, on home oxygen therapy Depression Essential tremor Prescribed carbidopa-levodopa by Dr. Heath. Former smoker 30-40 years x 3 ppd --> at least 90 pack years. Hypertension Hypothyroidism Lymphoma Patient is poor historian regarding this, but he is followed by Dr. Mcneil and is not currently undergoing treatment. Obstructive sleep apnea on CPAP Perforated gastric ulcer (~1983) Psoriasis Venous thromboembolism DVT and pulmonary embolism in 03/2012. Surgical History Surgical History History of laparotomy (~1983) For perforated ulcer. Family History Family History Sibling Patient's brother is in good health Mother Acute myocardial infarction, Onset Age: 89 Social History Social History Social History: The patient lives with his , Angelica, and their son in [facility]. His is his surrogate decision maker and he wishes to be a full code. He smoked up to 3 packs of cigarettes per day for 40 years and quit in 1999. He drinks 4 alcoholic beverages a week. No drug use. Primary care provider is Dr. Alicea. Smoking packs per day: 3 Smoking cigarettes per day: 60.0 Years smoked: 40 Smoking pack-years: 120.00 Smoking status: Former smoker Tobacco type: cigarettes Alcohol intake: current Drinks per week: 4 Substance use: never Substance use type: does not use Gender identity (if verbalized by the patient): Male Spiritual care concerns: No Agree to blood products: Yes Exam Narrative: APPEARANCE: Well appearing, no pain, no distress, well-nourished. HEAD: normocephalic, atraumatic. EYES: PERRLA/EOMI, conjunctivae clear. NOSE: Normal no drainage NECK: Supple. No adenopathy, no masses. RESPIRATORY: Airway patent, respirations nonlabored. Clear to auscultation bilaterally, no rales, rhonchi, wheezing. CARDIOVASCULAR: Regular rate and rhythm without murmurs rubs or gallops. ABDOMINAL: Soft, nontender, nondistended, normal
--- NOTE | 2023-11-06 11:56 | PC.NURSE ---
Pt denies need to have bowel movement at this time for stool sample
--- NOTE | 2023-11-06 12:17 | PC.NURSE ---
Initial complaint diarrhea, no episode of diarrhea during ER stay
== END 2023-11-06 12:21 | disposition home or self-care (01) ==
PROVIDERS: Emergency Provider Emergency Medicine; PCP Student in an Organized Health Care Education/Training Program
DX: R19.7 Diarrhea, unspecified (principal); Z20.822 Contact with and (suspected) exposure to COVID-19; I12.9 Hypertensive chronic kidney disease with stage 1 through stage 4 chronic kidney disease, or unspecified chronic kidney disease; N18.30 Chronic kidney disease, stage 3 unspecified; J44.9 Chronic obstructive pulmonary disease, unspecified; J96.11 Chronic respiratory failure with hypoxia; Z99.81 Dependence on supplemental oxygen; E03.9 Hypothyroidism, unspecified; G47.33 Obstructive sleep apnea (adult) (pediatric); L40.9 Psoriasis, unspecified; F31.9 Bipolar disorder, unspecified; Z86.73 Personal history of transient ischemic attack (TIA), and cerebral infarction without residual deficits; Z87.891 Personal history of nicotine dependence; Z86.718 Personal history of other venous thrombosis and embolism; Z86.711 Personal history of pulmonary embolism; Z85.72 Personal history of non-Hodgkin lymphomas; R00.1 Bradycardia, unspecified; I45.10 Unspecified right bundle-branch block; I44.0 Atrioventricular block, first degree
CPT/HCPCS: 36415; 80053; 81003; 83605; 83690; 85025; 85610; 85730; 87637; 93005; 99283; 99284

== ENCOUNTER 2023-12-30 08:11 | Outpatient (CLI) | payer MEDICARE, SELFPAY ==
[2023-12-30 08:30] VITALS: PULSE 83; O2SAT 87
[2023-12-30 08:32] VITALS: O2SAT 92
[2023-12-30 08:33] VITALS: O2SAT 87
[2023-12-30 08:34] VITALS: O2SAT 91
[2023-12-30 08:45] VITALS: O2SAT 93
--- NOTE | 2023-12-30 09:56 | HOMEO2EVAL ---
Evaluation was performed at [facility] Home Oxygen Evaluation RC: Home Oxygen (O2) Evaluation Start: 12/30/23 09:49 Freq: Status: Active Protocol: RPE Activity Type Activity Date Activity User E-sign Co-sign Detail Recorded Client Recorded Date Recorded By Document 12/30/23 08:30 ROYER [email or web address] 12/30/23 09:56 ROYER Document 12/30/23 08:32 ROYER [email or web address] 12/30/23 09:56 ROYER Document 12/30/23 08:33 ROYER [email or web address] 12/30/23 09:56 ROYER Document 12/30/23 08:34 [email or web address] [email or web address] 12/30/23 09:56 ROYER Document 12/30/23 08:45 ROYER [email or web address] 12/30/23 09:56 ROYER 12/30/23 12/30/23 12/30/23 08:30 08:32 08:33 Home O2 Evaluation [Oxygen] -Test Phase Resting Resting Exercise -Oxygen Delivery Room Air Nasal Cannula Nasal Cannula -Oxygen Flow Rate (L/min) 2 2 [Pulse Oximetry] -Pulse Oximetry (90-100 %) 87 L 92 87 L [Pulse Rate] -Pulse Rate (60-100 beats/min) 83 [Comments] -Home Oxygen Evaluation Comments [Charges] -Evaluation Charges O2 Evaluation by Pulmonary 12/30/23 12/30/23 08:34 08:45 Home O2 Evaluation [Oxygen] -Test Phase Exercise Resting -Oxygen Delivery Nasal Cannula Nasal Cannula -Oxygen Flow Rate (L/min) 3 2 [Pulse Oximetry] -Pulse Oximetry (90-100 %) 91 93 [Pulse Rate] -Pulse Rate (60-100 beats/min) [Comments] -Home Oxygen Evaluation Comments 2L resting, 3 with exertion. Pt attempted to walk but unable, very unsteady gait. Stood up, transfered to chair, tranfered back to wheelchair. [Charges] -Evaluation Charges
== END 2023-12-30 08:12 | disposition home or self-care (01) ==
LOC: ANHPFT 08:12
PROVIDERS: PCP Student in an Organized Health Care Education/Training Program; Visit Provider Physician Assistant
DX: J96.11 Chronic respiratory failure with hypoxia (principal); J44.9 Chronic obstructive pulmonary disease, unspecified; Z99.81 Dependence on supplemental oxygen
CPT/HCPCS: 94618

== ENCOUNTER 2023-12-31 09:09 | Inpatient (IN) | payer MEDICARE, SELFPAY ==
[2023-12-31] VITALS (13 sets, daily range): BP systolic 106–128; BP diastolic 60–82; PULSE 58–71; RESP 12–18; TEMP 36.1–36.2; O2SAT 92–99; BMI 26.5
--- NOTE | ~2023-12-31 | XR_ITS ---
EXAMINATION: XR chest 1V DATE: 12/31/2023 11:39 INDICATION: Shortness of breath. TECHNIQUE: A single frontal view of the chest was obtained. COMPARISON: Chest 2 views 03/24/2020, CT abdomen and pelvis 03/24/2020 FINDINGS: There is mild atelectasis at the lung bases. No pleural effusion or pneumothorax. The heart size is normal. Calcified right hilar lymph nodes are consistent with old granulomatous disease. Dilma gical clips overlie the abdomen. IMPRESSION: 1. Mild atelectasis at the lung bases. Reviewed, dictated and finalized at location A.
--- NOTE | ~2023-12-31 | CT_ITS ---
EXAMINATION: CT brain wo con DATE: 12/31/2023 11:35 INDICATION: Altered level of consciousness. TECHNIQUE: Computed tomography (CT) of the head was performed without intravenous contrast. The mA wa s adjusted according to patient size. Iterative reconstruction technique was employed. The dose-lengt h product was 681.00 mGy-cm. COMPARISON: Head CT 03/24/2020, brain MRI 07/29/2022 FINDINGS: There is a small old infarct in right cerebellum. There are scattered areas of low attenuat ion in the cerebral white matter, which is within normal limits for the patient's age. There is no in tracranial hemorrhage, acute infarction, or abnormal intracranial mass lesion. The ventricles are nor mal in size. There is mild mucosal thickening in the paranasal sinuses. There are likely changes of o cular lens replacement surgeries. 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 The mastoid air cells are n ormal. IMPRESSION: 1. Small old infarct in right cerebellum. Reviewed, dictated and finalized at location A.
--- NOTE | 2023-12-31 09:31 | ECG_ITS ---
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 Measurements Intervals [place] Rate: 59 P: 23 OR: 238 QRS: 61 QRSD: 145 T: 56 QT: 436 QTc: 432 Interpretive Statements SINUS BRADYCARDIA WITH FIRST DEGREE AV BLOCK RIGHT BUNDLE BRANCH BLOCK BASELINE ARTIFACT- I, II, III, AVR, AVL, AVF ABNORMAL ECG No previous ECG available for comparison Electronically Signed On 12-31-2023 11:44:57 CDT by Crow Rosales D.O.
[2023-12-31 10:14] LABS: Basophils Absolute Auto 0.1 K/mm3 (0.0-0.1); Basophils Percent Auto 0.3 % (0.2-1.2); Eosinophils Absolute Auto 0.1 K/mm3 (0-0.3); Eosinophils Percent Auto 0.3 % (0-4.4); Hematocrit 43.3 % (42.0-52.0); Hemoglobin 13.2 g/dL (14.0-18.0); Immature Granulocyte Absolute 0.07 K/mm3 (0.00-0.031); Immature Granulocyte Percent A 0.5 % (0-0.5); Lymphocytes Absolute Auto 4.29 K/mm3 (0.9-3.2); Lymphocytes Percent Auto 29.3 % (18.3-44.2); Mean Corpuscular HGB Conc 30.5 g/dl (32-36); Mean Corpuscular Hemoglobin 30.8 pg (26-34); Mean Corpuscular Volume 100.9 fl (80-100); Monocytes Absolute Auto 1.2 K/mm3 (0.1-0.6); Monocytes Percent Auto 7.9 % (2.6-8.5); Neutrophils Percent Auto 61.7 % (45.5-73.1); Platelet Count Result 212 k/mm3 (150-375); Red Blood Count 4.29 M/mm3 (4.6-6.20); White Blood Count 14.6 K/mm3 (4.5-10.0)
[2023-12-31 10:23] LABS: Alanine Aminotransferase 22 U/L (6-50); Albumin Level 3.9 g/dL (3.5-5.1); Alkaline Phosphatase 83 U/L (38-126); Anion Gap 3 mmol/L (4-12); Aspartate Amino Transferase 28 U/L (17-59); Bilirubin,Total 1.5 mg/dL (0.2-1.3); Blood Urea Nitrogen 19 mg/dL (9-20); Calcium 10.2 mg/dL (8.4-10.2); Carbon Dioxide 30 mmol/L (22-30); Chloride 107 mmol/L (98-107); Estimated CRCL calculation 44 ml/min; Estimated Glomerular Filt Rate 53; Glucose 81 mg/dL (65-110); Potassium 4.2 mmol/L (3.4-5.0); Sodium 140 mmol/L (137-145)
[2023-12-31 10:45] LABS: Prothrombin Time 13.9 Seconds (11.1-14.7)
[2023-12-31 10:46] LABS: Partial Thromboplastin Time 29.3 Seconds (22.3-36.8)
[2023-12-31 10:51] LABS: Appearance Urine Clear (Clear); Bilirubin Urine Negative (Negative); Blood Urine Negative (Negative); Color Urine Yellow (Yellow); Glucose Urine UA Negative (Negative); Ketones Urine Negative (Negative); Leukocyte Esterase Ur Negative LEU/UL (Negative); Nitrate Urine Negative (Negative); Protein Urine Negative (Negative); Specific Grav Ur 1.006 (1.001-1.035); Urobilinogen Urine 0.2 mg/dL (<2.0)
[2023-12-31 10:53] LABS: Add Urine Microscopic? NO
[2023-12-31 11:24] LABS: Alveolar/Arterial O2 Gradient 72.7 mmHg; Base Excess ABG -0.1 mEq/l (+/-2.0); Fractional Inspired Oxygen 28 %; HCO3 ABG 25.5 mEq/l (22.0-26.0); Oxygen Content ABG 17.4 %vol (16.0-22.0); Oxygen Saturation ABG 94.2 % (95.0-100.0); Oxyhemoglobin 94.2 % THb (90.0-100.0); PCO2 ABG 45.6 mmHg (35.0-45.0); PO2 ABG 73.1 mmHg (80.0-100.0); PO2 FiO2 Ratio Arterial Blood 2.61 %; Total Hemoglobin 13.1 g/dL (12.0-18.0); pH ABG 7.366 (7.350-7.450)
[2023-12-31 11:27] LABS: Device NASAL CANNULA; Modified Allen's Test Pass; Site Drawn RIGHT RADIAL
--- NOTE | 2023-12-31 12:32 | ED.AMS ---
HPI - Altered Mental Status General Chief Complaint: Altered Mental Status Stated Complaint: confusion Time Seen by Provider: 12/31/23 10:34 Source: patient and family Mode of arrival: wheelchair Limitations: no limitations History of Present Illness HPI narrative: 78-year-old with a history of COPD on 2 L of home oxygen, bipolar disorder on lithium, hypertension, hyperlipidemia who was brought in by his with a complaint of altered mental status. mentions that he was diagnosed with pneumonia 2 weeks ago and ever since then his been progressive decline in his mental condition as well as his gait. No history of fever or chills denies any recent falls. MD complaint: altered mental status Onset (ago): week(s) (2) Timing confirmed by: spouse Severity: moderate Consistency of symptoms: waxing and waning Associated symptoms: denies other symptoms Related Data Home Medications Medication Instructions Recorded Confirmed cholecalciferol (vitamin D3) 25 1,000 unit PO DAILY 06/07/19 12/14/23 mcg (1,000 unit) capsule (Vitamin D3) fluoxetine 20 mg capsule (Prozac) 10 mg PO BID 06/07/19 12/14/23 albuterol sulfate 2.5 mg/3 mL 2.5 mg inhalation Q4-6H PRN 09/03/20 12/14/23 (0.083 %) solution for nebulization ixekizumab 80 mg/mL subcutaneous 80 mg subcut .biweekly 03/08/23 12/14/23 auto-injector (Taltz Autoinjector) levothyroxine 50 mcg tablet 50 mcg PO DAILY 03/08/23 12/14/23 lithium carbonate 300 mg capsule 300 mg PO BID 03/08/23 12/14/23 Allergies Allergy/AdvReac Type Severity Reaction Status Date / Time No Known Allergies Allergy Mild Verified 12/31/23 09:31 Review of Systems Review of Systems: All systems reviewed & are unremarkable except as noted in HPI and below Constitutional: Constitutional: Reports no additional constitutional complaints Eyes: Eyes: Reports no additional eye complaints ENT: Reports system reviewed and no additional complaints, except as documented Cardiovascular: Cardiovascular: Reports no additional cardiovascular complaints Respiratory: Respiratory: Reports no additional respiratory complaints Gastrointestinal: Gastrointestinal: Reports no additional gastrointestinal complaints Musculoskeletal: Musculoskeletal: Reports no additional musculoskeletal complaints Neurologic: Reports system reviewed and no additional complaints, except as documented Endocrine: Endocrine: Reports no additional endocrine complaints PMFSH Past Medical History Medical History Bipolar disorder Cerebrovascular accident Brain MRI in 03/2020 showed infarcts in both cerebellar hemispheres. Chronic kidney disease, stage 3 Baseline creatinine is around 1.50. Chronic obstructive pulmonary disease Chronic respiratory failure with hypoxia, on home oxygen therapy Depression Essential tremor Prescribed carbidopa-levodopa by Dr. Heath. Former smoker 30-40 years x 3 ppd --> at least 90 pack years. Hypertension Hypothyroidism Lymphoma Patient is poor historian regarding this, but he is followed by Dr. Mcneil and is not currently undergoing treatment. Obstructive sleep apnea on CPAP Perforated gastric ulcer (~1983) Psoriasis Venous thromboembolism DVT and pulmonary embolism in 03/2012. Surgical History Surgical History History of laparotomy (~1983) For perforated ulcer. Family History Family History Sibling Patient's brother is in good health Mother Acute myocardial infarction, Onset Age: 89 Social History Social History Social History: The patient lives with his , Angelica, and their son in [facility]. His is his surrogate decision maker and he wishes to be a full code. He smoked up to 3 packs of cigarettes per day for 40 years and quit in 1999. He drinks 4 alcoho
[2023-12-31] MEDS: IPRATROPIUM 0.5 MG/ALBUTEROL SULFATE 2.5 MG AMPUL.NEB 3 ML INHALATION ×2 (12:50→19:30)
[2023-12-31] MEDS: SODIUM CHLORIDE 0.9% IV 1,000 ML 75 ML IV CONT (13:00)
--- NOTE | 2023-12-31 14:02 | ADMGEN ---
This patient, Juarez Bermudez, was admitted to [facility] Surg Room 317-02. Patient/family oriented to hospital policies and general routines including ID bracelet, bed and alarms, visiting hours, pain management, procedures, bathroom and other care routines, personal items, smoking policy, room service/diet, and visiting hours. Information on how to activate the Rapid Response Team has been discussed. Patient/Family are encouraged to report perceived risks to care and to ask questions if they do not understand what they are told or what they should do.
[2023-12-31 15:30] LABS: Lithium 1.6 mmol/L (0.6-1.2)
--- NOTE | 2023-12-31 15:33 | PM.IMHP ---
H&P: HPI History of Present Illness Date/Time: 12/31/23 15:33 Chief Complaint: Altered mental status Narrative: This is a 78-year-old male patient with past medical history bipolar disorder on lithium, COPD on 2 L of home oxygen, CKD stage 3, prior CVA, JEM on CPAP, hypothyroidism, hypertension who was brought to the emergency department due to waning level of consciousness at home. Patient was diagnosed with pneumonia 2 weeks ago and has been declining in his mental status and his ability to ambulate since that time. Patient also tells me that he has been having repeated diarrhea for about the last 3 weeks. Patient acknowledges that he has been ?driving my nuts constantly.? was not present at time of examination but stated to the emergency department that she is unable to manage his condition at home and wants him to be admitted possibly for skilled nursing placement. Patient reports he always wears oxygen. He denies chest pain or vomiting. Remainder of ROS and HPI are limited due to mental status. Review of Systems Review of Systems: ROS unobtainable: Yes unobtainable due to mental status PMFSH Past Medical History Medical History Bipolar disorder Cerebrovascular accident Brain MRI in 03/2020 showed infarcts in both cerebellar hemispheres. Chronic kidney disease, stage 3 Baseline creatinine is around 1.50. Chronic obstructive pulmonary disease Chronic respiratory failure with hypoxia, on home oxygen therapy Depression Essential tremor Prescribed carbidopa-levodopa by Dr. Heath. Former smoker 30-40 years x 3 ppd --> at least 90 pack years. Hypertension Hypothyroidism Lymphoma Patient is poor historian regarding this, but he is followed by Dr. Mcneil and is not currently undergoing treatment. Obstructive sleep apnea on CPAP Perforated gastric ulcer (~1983) Psoriasis Venous thromboembolism DVT and pulmonary embolism in 03/2012. Surgical History Surgical History History of laparotomy (~1983) For perforated ulcer. Family History Family History Sibling Patient's brother is in good health Mother Acute myocardial infarction, Onset Age: 89 Social History Social History Social History: The patient lives with his , Angelica, and their son in [facility]. His is his surrogate decision maker and he wishes to be a full code. He smoked up to 3 packs of cigarettes per day for 40 years and quit in 1999. He drinks 4 alcoholic beverages a week. No drug use. Primary care provider is Dr. Alicea. Smoking packs per day: 3 Smoking cigarettes per day: 60.0 Years smoked: 40 Smoking pack-years: 120.00 Smoking status: Former smoker Tobacco type: cigarettes Alcohol intake: current Drinks per week: 6 Substance use: current Substance use type: marijuana Other substance usage details: 08/2023 Do You Feel Safe in your Home?: Yes Lack of Transportation: YES Lack of Food: Sometimes True Current Housing: I Have Housing Concerned About Future Housing: No Difficulty Paying Gas/Electric Bills: YES Difficulty Paying for Meds: YES Currently Unemployed: No Education: Decline to Answer Difficulty w/ Childcare or Family Care: No Gender identity (if verbalized by the patient): Male Spiritual care concerns: No Agree to blood products: Yes Meds Home Medications and Allergies Home Medications Medication Instructions Recorded Confirmed Type cholecalciferol (vitamin D3) 25 1,000 unit PO DAILY 06/07/19 12/31/23 History mcg (1,000 unit) capsule (Vitamin D3) fluoxetine 20 mg capsule (Prozac) 10 mg PO BID 06/07/19 12/31/23 History albuterol sulfate 2.5 mg/3 mL 2.5 mg inhalation Q4-6H PRN 09/03/20 12/31/23 History (0.083 %) fei
[2023-12-31] MEDS: FLUoxetine HCL 10 MG CAPSULE PO (16:53)
[2023-12-31] MEDS: FERROUS SULFATE 325 MG TABLET DR BY MOUTH (20:14)
[2024-01-01] VITALS (12 sets, daily range): BP systolic 109–122; BP diastolic 64–68; PULSE 58–73; RESP 13–22; TEMP 36.1–36.4; O2SAT 91–99
[2024-01-01] MEDS: SODIUM CHLORIDE 0.9% IV 1,000 ML 75 ML IV CONT ×2 (02:30→13:45)
[2024-01-01] MEDS: IPRATROPIUM 0.5 MG/ALBUTEROL SULFATE 2.5 MG AMPUL.NEB 3 ML INHALATION ×4 (02:35→20:40)
[2024-01-01 06:08] LABS: Basophils Absolute Auto 0.1 K/mm3 (0.0-0.1); Basophils Percent Auto 0.5 % (0.2-1.2); Eosinophils Absolute Auto 0.1 K/mm3 (0-0.3); Eosinophils Percent Auto 0.8 % (0-4.4); Hematocrit 41.8 % (42.0-52.0); Hemoglobin 12.5 g/dL (14.0-18.0); Immature Granulocyte Absolute 0.03 K/mm3 (0.00-0.031); Immature Granulocyte Percent A 0.3 % (0-0.5); Lymphocytes Absolute Auto 3.63 K/mm3 (0.9-3.2); Lymphocytes Percent Auto 34.5 % (18.3-44.2); Mean Corpuscular HGB Conc 29.9 g/dl (32-36); Mean Corpuscular Hemoglobin 30.6 pg (26-34); Mean Corpuscular Volume 102.2 fl (80-100); Mean Platelet Volume 10.1 fl (7.4-10.4); Monocytes Absolute Auto 0.9 K/mm3 (0.1-0.6); Monocytes Percent Auto 8.5 % (2.6-8.5); Neutrophils Absolute Auto 5.8 K/mm3 (1.3-6.7); Neutrophils Percent Auto 55.4 % (45.5-73.1); Platelet Count Result 253 k/mm3 (150-375); Red Blood Count 4.09 M/mm3 (4.6-6.20); Red Cell Distribution Width 14.9 % (11.5-14.5); White Blood Count 10.5 K/mm3 (4.5-10.0)
[2024-01-01 06:16] LABS: Alanine Aminotransferase 18 U/L (6-50); Albumin Level 3.5 g/dL (3.5-5.1); Alkaline Phosphatase 80 U/L (38-126); Anion Gap 4 mmol/L (4-12); Aspartate Amino Transferase 30 U/L (17-59); Bilirubin,Total 1.4 mg/dL (0.2-1.3); Blood Urea Nitrogen 17 mg/dL (9-20); Calcium 9.7 mg/dL (8.4-10.2); Carbon Dioxide 28 mmol/L (22-30); Chloride 110 mmol/L (98-107); Estimated CRCL calculation 52 ml/min; Estimated Glomerular Filt Rate > 60; Glucose 81 mg/dL (65-110); Magnesium 2.5 mg/dL (1.6-2.3); Phosphorus 3.2 mg/dL (2.5-4.5); Sodium 142 mmol/L (137-145)
[2024-01-01 06:18] LABS: Lithium 1.2 mmol/L (0.6-1.2)
[2024-01-01] MEDS: LEVOTHYROXINE SODIUM 50 MCG TABLET PO (06:36)
[2024-01-01 07:24] LABS: Platelet Estimate Adequate (Adequate); Poikilocytosis 1+
[2024-01-01 07:25] LABS: Crenated RBC 1+; Schistocytes Rare
--- NOTE | 2024-01-01 07:54 | PM.IMPN ---
Progress Note: A&P Assessment and Plan (1) Altered mental status: Qualifiers: Altered mental status type: unspecified Qualified Code(s): R41.82 - Altered mental status, unspecified Code(s): R41.82 - Altered mental status, unspecified Status: Acute Assessment and Plan: Likely multifactorial, patient was only arousable to voice and remained lethargic on initial exam. However upon reassessment he was AOx3. - Head CT: small old infarct in the right cerebellum and age-related changes. - [place] level noted to be elevated on admission and remains on the upper limit of normal with am labs, may be contributory. - CO2 accumulation likely from lack of CPAP use overnight, ABG showing respiratory acidosis, CPAP now in use - Chest XR: Mild atelectasis at the lung bases. Incentive spirometer ordered. - Urinalysis unremarkable - Covid/flu/RSV negative (2) Acute on chronic respiratory failure with hypoxia and hypercapnia: Code(s): J96.21 - Acute and chronic respiratory failure with hypoxia; J96.22 - Acute and chronic respiratory failure with hypercapnia Status: Acute Assessment and Plan: Patient on 2L NC at baseline for COPD. - ABG on admission: 7.366/45.6/73.1/25.5 - ABG 1145: 7.327/51.1/81.1/26.2 - CPAP in place at this time - Monitor Oxygen saturation, Oxygen via NC when awake; keep SpO2 greater than 88% (3) [place] toxicity: Code(s): T56.891A - Toxic effect of other metals, accidental (unintentional), initial encounter Status: Acute Assessment and Plan: [place] level 1.6 on admission, dose held at that time. - [place] level 1.2 on am labs, will continue to hold the medication and reassess with am labs as this is the upper limit of normal. (4) Chronic kidney disease, stage 3a: Code(s): N18.3 - Chronic kidney disease, stage 3 (moderate) Status: Acute Assessment and Plan: Chronic, appears to be at baseline. BUN/ Creatinine 19/1.3, estimated creatinine clearance 44, estimated GFR 53. - Continue to monitor with am labs - Avoid nephrotoxic medications - I/O - UO (5) Obstructive sleep apnea on CPAP: Code(s): G47.33 - Obstructive sleep apnea (adult) (pediatric); Z99.89 - Dependence on other enabling machines and devices Status: Acute Assessment and Plan: Ordered CPAP (6) COPD (chronic obstructive pulmonary disease): Qualifiers: COPD type: COPD with acute exacerbation Qualified Code(s): J44.1 - Chronic obstructive pulmonary disease with (acute) exacerbation Code(s): J44.9 - Chronic obstructive pulmonary disease, unspecified Status: Acute Assessment and Plan: Chronic, does not appear to be in acute exacerbation. Remains on 2L NC at baseline. Time Spent With Patient Time with patient: 25 - 35 minutes Subjective Date/time seen: 01/01/24 07:54 Interval history: 78-year-old male patient with past medical history bipolar disorder on lithium, COPD on 2 L of home oxygen, CKD stage 3, prior CVA, JEM on CPAP, hypothyroidism, hypertension who was brought to the emergency department due to waning level of consciousness at home.? On initial exam patient was found sleeping with his NC in place. He was arousable to voice, but only AOx1 and lethargic. Noticed that there was no CPAP in the room, which patient uses overnight. According to respiratory note refused cpap overnight. ABG ordered and revealed respiratory acidosis. Respiratory therapy called and CPAP placed. Of note patients lithium level is 1.2 on am labs. Though this is WNL still a possible cause of patients further confusion. Since this is the upper limit of normal, will hold lithium again today and reassess levels in the am. 1250: Returned to patient room and he is AOx3, sitting up, and eating his lunch. He denies chest pain, shortness of breath, nausea/vomiting, and change in bowel/bladder. Patient has poor dentition and was noted to have a coughing
[2024-01-01] MEDS: SODIUM CHLORIDE 1 GM TABLET PO (08:06)
[2024-01-01] MEDS: FLUoxetine HCL 10 MG CAPSULE PO ×2 (08:06→16:55)
[2024-01-01] MEDS: ASCORBIC ACID 500 MG TABLET PO (08:06)
[2024-01-01] MEDS: ENOXAPARIN 40 MG/0.4 ML SYRINGE SUB-Q (08:06)
[2024-01-01] MEDS: CHOLECALCIFEROL 1,000 UNITS TABLET 1000 UNITS PO (08:06)
[2024-01-01 11:56] LABS: Alveolar/Arterial O2 Gradient 58.2 mmHg; Base Excess ABG -0.4 mEq/l (+/-2.0); Device NASAL CANNULA; Fractional Inspired Oxygen 28 %; HCO3 ABG 26.2 mEq/l (22.0-26.0); Oxygen Content ABG 17.2 %vol (16.0-22.0); Oxygen Saturation ABG 95.1 % (95.0-100.0); Oxyhemoglobin 95.3 % THb (90.0-100.0); PCO2 ABG 51.1 mmHg (35.0-45.0); PO2 ABG 81.1 mmHg (80.0-100.0); Site Drawn LEFT BRACHIAL; Total Hemoglobin 12.8 g/dL (12.0-18.0); pH ABG 7.327 (7.350-7.450)
[2024-01-01] MEDS: ATORVASTATIN 20 MG TABLET PO (21:16)
[2024-01-01] MEDS: FERROUS SULFATE 325 MG TABLET DR BY MOUTH (21:16)
[2024-01-02] VITALS (15 sets, daily range): BP systolic 126–137; BP diastolic 72–80; PULSE 60–88; RESP 14–22; TEMP 36.4–37; O2SAT 90–98
[2024-01-02] MEDS: IPRATROPIUM 0.5 MG/ALBUTEROL SULFATE 2.5 MG AMPUL.NEB 3 ML INHALATION ×4 (02:43→20:49)
[2024-01-02 05:54] LABS: Basophils Absolute Auto 0.1 K/mm3 (0.0-0.1); Basophils Percent Auto 0.5 % (0.2-1.2); Eosinophils Absolute Auto 0.1 K/mm3 (0-0.3); Eosinophils Percent Auto 0.7 % (0-4.4); Hematocrit 42.4 % (42.0-52.0); Hemoglobin 12.9 g/dL (14.0-18.0); Immature Granulocyte Absolute 0.04 K/mm3 (0.00-0.031); Immature Granulocyte Percent A 0.4 % (0-0.5); Lymphocytes Absolute Auto 3.35 K/mm3 (0.9-3.2); Lymphocytes Percent Auto 29.6 % (18.3-44.2); Mean Corpuscular HGB Conc 30.4 g/dl (32-36); Mean Corpuscular Volume 101.9 fl (80-100); Monocytes Absolute Auto 0.9 K/mm3 (0.1-0.6); Monocytes Percent Auto 8.1 % (2.6-8.5); Neutrophils Absolute Auto 6.9 K/mm3 (1.3-6.7); Neutrophils Percent Auto 60.7 % (45.5-73.1); Platelet Count Result 270 k/mm3 (150-375); Red Blood Count 4.16 M/mm3 (4.6-6.20); Red Cell Distribution Width 15.6 % (11.5-14.5); White Blood Count 11.3 K/mm3 (4.5-10.0)
[2024-01-02 06:12] LABS: Alanine Aminotransferase 18 U/L (6-50); Albumin Level 3.5 g/dL (3.5-5.1); Alkaline Phosphatase 84 U/L (38-126); Anion Gap 2 mmol/L (4-12); Aspartate Amino Transferase 50 U/L (17-59); Bilirubin,Total 0.9 mg/dL (0.2-1.3); Blood Urea Nitrogen 16 mg/dL (9-20); Calcium 10.3 mg/dL (8.4-10.2); Carbon Dioxide 29 mmol/L (22-30); Chloride 116 mmol/L (98-107); Estimated CRCL calculation 47 ml/min; Estimated Glomerular Filt Rate 58; Glucose 110 mg/dL (65-110); Magnesium 2.4 mg/dL (1.6-2.3); Potassium 4.3 mmol/L (3.4-5.0); Sodium 147 mmol/L (137-145)
[2024-01-02] MEDS: LEVOTHYROXINE SODIUM 50 MCG TABLET PO (06:25)
[2024-01-02] MEDS: SODIUM CHLORIDE 0.9% IV 1,000 ML 75 ML IV CONT (06:25)
[2024-01-02 06:27] LABS: Lithium 0.9 mmol/L (0.6-1.2)
--- NOTE | 2024-01-02 06:52 | PM.IMPN ---
Progress Note: A&P Assessment and Plan (1) Altered mental status: Qualifiers: Altered mental status type: unspecified Qualified Code(s): R41.82 - Altered mental status, unspecified Code(s): R41.82 - Altered mental status, unspecified Status: Acute Assessment and Plan: Likely multifactorial, patient was only arousable to voice and remained lethargic on initial exam. However upon reassessment he was AOx3. - Head CT: small old infarct in the right cerebellum and age-related changes. - [place] level noted to be elevated on admission and remains on the upper limit of normal with am labs, may be contributory. - CO2 accumulation likely from lack of CPAP use overnight, ABG showing respiratory acidosis, CPAP now in use - Chest XR: Mild atelectasis at the lung bases. Incentive spirometer ordered. - Urinalysis unremarkable - Covid/flu/RSV negative (2) Acute on chronic respiratory failure with hypoxia and hypercapnia: Code(s): J96.21 - Acute and chronic respiratory failure with hypoxia; J96.22 - Acute and chronic respiratory failure with hypercapnia Status: Acute Assessment and Plan: Patient on 2L NC at baseline for COPD. - ABG on admission: 7.366/45.6/73.1/25.5 - ABG 1145: 7.327/51.1/81.1/26.2 - CPAP in place at this time - Monitor Oxygen saturation, Oxygen via NC when awake; keep SpO2 greater than 88% (3) [place] toxicity: Code(s): T56.891A - Toxic effect of other metals, accidental (unintentional), initial encounter Status: Acute Assessment and Plan: [place] level 1.6 on admission, dose held at that time. - [place] level 0.9 on am labs, will continue to hold the medication and reassess with am labs as this is the upper limit of normal. - Attempted to call patients psychiatrist (Elen Treadwell) in regards to his lithium dosage, however the office is closed. Will call back tomorrow. (4) Chronic kidney disease, stage 3a: Code(s): N18.3 - Chronic kidney disease, stage 3 (moderate) Status: Acute Assessment and Plan: Chronic, appears to be at baseline. BUN/ Creatinine 19/1.3, estimated creatinine clearance 44, estimated GFR 53. - Continue to monitor with am labs - Avoid nephrotoxic medications - I/O - UO (5) Obstructive sleep apnea on CPAP: Code(s): G47.33 - Obstructive sleep apnea (adult) (pediatric); Z99.89 - Dependence on other enabling machines and devices Status: Acute Assessment and Plan: Ordered CPAP (6) COPD (chronic obstructive pulmonary disease): Qualifiers: COPD type: COPD with acute exacerbation Qualified Code(s): J44.1 - Chronic obstructive pulmonary disease with (acute) exacerbation Code(s): J44.9 - Chronic obstructive pulmonary disease, unspecified Status: Acute Assessment and Plan: Chronic, does not appear to be in acute exacerbation. Remains on 2L NC at baseline. Time Spent With Patient Time with patient: 25 - 35 minutes Subjective Date/time seen: 01/02/24 06:52 Interval history: 78-year-old male patient with past medical history bipolar disorder on lithium, COPD on 2 L of home oxygen, CKD stage 3, prior CVA, JEM on CPAP, hypothyroidism, hypertension who was brought to the emergency department due to waning level of consciousness at home.? Patient is pleasant lying comfortably in bed. He remains Aox3 and has no complaints at this time. He continues to have intermittent garbled speech. Speech evaluated him and plan to continue working with patient. Speech also recommend bite sized diet ordered. Patient denies chest pain, palpitations, shortness of breath, nausea/vomiting and changes in bowel/bladder. Attempted to call patients psychiatrist (Elen Treadwell) in regards to his lithium dosage, however the office is closed. Will call back tomorrow. Will continue to hold the medication at this time. Review of Systems Review of Systems: All systems reviewed & are unremarkable excep
[2024-01-02] MEDS: FLUoxetine HCL 10 MG CAPSULE PO ×2 (08:05→18:01)
[2024-01-02] MEDS: ASCORBIC ACID 500 MG TABLET PO (08:05)
[2024-01-02] MEDS: SODIUM CHLORIDE 1 GM TABLET PO (08:05)
[2024-01-02] MEDS: CHOLECALCIFEROL 1,000 UNITS TABLET 1000 UNITS PO (08:05)
[2024-01-02] MEDS: ENOXAPARIN 40 MG/0.4 ML SYRINGE SUB-Q (08:06)
--- NOTE | 2024-01-02 10:49 | PCSTNOTE ---
Please refer to the Bedside Swallow Evaluation in the EMR. Please note, silent aspiration cannot be ruled out at bedside.
[2024-01-02] MEDS: FERROUS SULFATE 325 MG TABLET DR BY MOUTH (20:43)
[2024-01-02] MEDS: ATORVASTATIN 20 MG TABLET PO (20:43)
[2024-01-03] VITALS (15 sets, daily range): BP systolic 123–140; BP diastolic 76–78; PULSE 60–88; RESP 12–20; TEMP 36.6–36.9; O2SAT 92–99
[2024-01-03] MEDS: IPRATROPIUM 0.5 MG/ALBUTEROL SULFATE 2.5 MG AMPUL.NEB 3 ML INHALATION ×4 (02:40→20:10)
[2024-01-03 06:19] LABS: Basophils Percent Auto 0.4 % (0.2-1.2); Eosinophils Absolute Auto 0.2 K/mm3 (0-0.3); Eosinophils Percent Auto 1.8 % (0-4.4); Hematocrit 42.8 % (42.0-52.0); Hemoglobin 12.6 g/dL (14.0-18.0); Immature Granulocyte Absolute 0.03 K/mm3 (0.00-0.031); Immature Granulocyte Percent A 0.3 % (0-0.5); Lymphocytes Absolute Auto 3.38 K/mm3 (0.9-3.2); Lymphocytes Percent Auto 36.5 % (18.3-44.2); Mean Corpuscular HGB Conc 29.4 g/dl (32-36); Mean Corpuscular Hemoglobin 30.4 pg (26-34); Mean Corpuscular Volume 103.1 fl (80-100); Mean Platelet Volume 10.6 fl (7.4-10.4); Monocytes Absolute Auto 0.8 K/mm3 (0.1-0.6); Monocytes Percent Auto 8.1 % (2.6-8.5); Neutrophils Absolute Auto 4.9 K/mm3 (1.3-6.7); Neutrophils Percent Auto 52.9 % (45.5-73.1); Platelet Count Result 274 k/mm3 (150-375); Red Blood Count 4.15 M/mm3 (4.6-6.20); Red Cell Distribution Width 16.2 % (11.5-14.5); White Blood Count 9.3 K/mm3 (4.5-10.0)
[2024-01-03] MEDS: LEVOTHYROXINE SODIUM 50 MCG TABLET PO (06:28)
[2024-01-03 06:33] LABS: Lithium 0.6 mmol/L (0.6-1.2)
[2024-01-03 06:40] LABS: Alanine Aminotransferase 19 U/L (6-50); Albumin Level 3.6 g/dL (3.5-5.1); Alkaline Phosphatase 80 U/L (38-126); Anion Gap 1 mmol/L (4-12); Aspartate Amino Transferase 26 U/L (17-59); Bilirubin,Total 0.8 mg/dL (0.2-1.3); Blood Urea Nitrogen 14 mg/dL (9-20); Calcium 9.9 mg/dL (8.4-10.2); Carbon Dioxide 30 mmol/L (22-30); Chloride 115 mmol/L (98-107); Estimated CRCL calculation 52 ml/min; Estimated Glomerular Filt Rate > 60; Glucose 104 mg/dL (65-110); Magnesium 2.4 mg/dL (1.6-2.3); Potassium 4.1 mmol/L (3.4-5.0); Sodium 146 mmol/L (137-145)
[2024-01-03 06:55] LABS: Anisocytosis 1+; Hypochromasia 1+; Platelet Estimate Adequate (Adequate); Schistocytes None Seen
[2024-01-03 08:43] LABS: Folic Acid 8.1 ng/mL (2.76->20)
[2024-01-03] MEDS: CHOLECALCIFEROL 1,000 UNITS TABLET 1000 UNITS PO (08:52)
[2024-01-03] MEDS: FLUoxetine HCL 10 MG CAPSULE PO ×2 (08:52→18:41)
[2024-01-03] MEDS: SODIUM CHLORIDE 1 GM TABLET PO (08:52)
[2024-01-03] MEDS: ENOXAPARIN 40 MG/0.4 ML SYRINGE SUB-Q (08:52)
[2024-01-03] MEDS: ASCORBIC ACID 500 MG TABLET PO (08:52)
--- NOTE | 2024-01-03 09:57 | PM.IMPN ---
Progress Note: A&P Assessment and Plan (1) Altered mental status: Qualifiers: Altered mental status type: unspecified Qualified Code(s): R41.82 - Altered mental status, unspecified Code(s): R41.82 - Altered mental status, unspecified Status: Acute Assessment and Plan: Likely multifactorial, patient was only arousable to voice and remained lethargic on initial exam. However upon reassessment he was AOx3. - Head CT: small old infarct in the right cerebellum and age-related changes. - [place] level noted to be elevated on admission and remains on the upper limit of normal with am labs, may be contributory. - CO2 accumulation likely from lack of CPAP use overnight, ABG showing respiratory acidosis, CPAP now in use - Chest XR: Mild atelectasis at the lung bases. Incentive spirometer ordered. - Urinalysis unremarkable - Covid/flu/RSV negative Remains AOx4 at this time. - Continue to monitor (2) Acute on chronic respiratory failure with hypoxia and hypercapnia: Code(s): J96.21 - Acute and chronic respiratory failure with hypoxia; J96.22 - Acute and chronic respiratory failure with hypercapnia Status: Acute Assessment and Plan: Patient on 2L NC at baseline for COPD. - ABG on admission: 7.366/45.6/73.1/25.5 - ABG 1145: 7.327/51.1/81.1/26.2 - CPAP in place at this time - Monitor Oxygen saturation, Oxygen via NC when awake; keep SpO2 greater than 88% (3) [place] toxicity: Code(s): T56.891A - Toxic effect of other metals, accidental (unintentional), initial encounter Status: Acute Assessment and Plan: [place] level 1.6 on admission, dose held at that time. - [place] level 0.6 on am labs, will continue to hold the medication. - Per patients psychiatrist will continue to hold the lithium at this time. Patient has an appointment in their office on 01/06/24. She states that he was already on this medication prior to establishing with her and she is wondering if he still needs to be on it. Of note, called their office and mentioned that patient had been taking flagyl from a prior hospitalization which is known to increase lithium levels. He is no longer taking these medications and now denies diarrhea. (4) Chronic kidney disease, stage 3a: Code(s): N18.3 - Chronic kidney disease, stage 3 (moderate) Status: Acute Assessment and Plan: Chronic, appears to be at baseline. BUN/ Creatinine 19/1.3, estimated creatinine clearance 44, estimated GFR 53. - Continue to monitor with am labs - Avoid nephrotoxic medications - I/O - UO (5) Obstructive sleep apnea on CPAP: Code(s): G47.33 - Obstructive sleep apnea (adult) (pediatric); Z99.89 - Dependence on other enabling machines and devices Status: Acute Assessment and Plan: Ordered CPAP (6) COPD (chronic obstructive pulmonary disease): Qualifiers: COPD type: COPD with acute exacerbation Qualified Code(s): J44.1 - Chronic obstructive pulmonary disease with (acute) exacerbation Code(s): J44.9 - Chronic obstructive pulmonary disease, unspecified Status: Acute Assessment and Plan: Chronic, does not appear to be in acute exacerbation. Remains on 2L NC at baseline. Time Spent With Patient Time with patient: 25 - 35 minutes Subjective Date/time seen: 01/03/24 09:57 Interval history: 78-year-old male patient with past medical history bipolar disorder on lithium, COPD on 2 L of home oxygen, CKD stage 3, prior CVA, JEM on CPAP, hypothyroidism, hypertension who was brought to the emergency department due to waning level of consciousness at home.? Patient is pleasant lying comfortably in bed. He remains AOx4 at this time and his speech is less garbled today. He endorses mild shortness of breath but notes that this is similar to his baseline. Discussed with patient that I had left a message with his psychiatrist in regards to his lithium dosing and making possible adj
--- NOTE | 2024-01-03 15:25 | PCSTNOTE ---
The patient treatment was not able to be completed on 01/02 due to refusal as he was unable to stay awake; requested therapist return tomorrow morning. Will plan to continue treatment per plan of care.
[2024-01-03] MEDS: ATORVASTATIN 20 MG TABLET PO (20:44)
[2024-01-03] MEDS: FERROUS SULFATE 325 MG TABLET DR BY MOUTH (20:44)
[2024-01-04 01:47] VITALS: PULSE 66; RESP 18
[2024-01-04] MEDS: IPRATROPIUM 0.5 MG/ALBUTEROL SULFATE 2.5 MG AMPUL.NEB 3 ML INHALATION ×2 (01:47→07:32)
[2024-01-04 01:48] VITALS: PULSE 76; RESP 16; O2SAT 95
[2024-01-04 01:56] VITALS: PULSE 68; RESP 18
[2024-01-04 05:54] VITALS: BP 127/78; PULSE 65; RESP 20; TEMP 36.7; O2SAT 96
[2024-01-04] MEDS: LEVOTHYROXINE SODIUM 50 MCG TABLET PO (05:58)
[2024-01-04 06:43] LABS: Basophils Absolute Auto 0.1 K/mm3 (0.0-0.1); Basophils Percent Auto 0.5 % (0.2-1.2); Eosinophils Absolute Auto 0.1 K/mm3 (0-0.3); Eosinophils Percent Auto 1.2 % (0-4.4); Hematocrit 42.5 % (42.0-52.0); Hemoglobin 12.7 g/dL (14.0-18.0); Immature Granulocyte Absolute 0.05 K/mm3 (0.00-0.031); Immature Granulocyte Percent A 0.5 % (0-0.5); Lymphocytes Absolute Auto 4.21 K/mm3 (0.9-3.2); Lymphocytes Percent Auto 39.8 % (18.3-44.2); Mean Corpuscular HGB Conc 29.9 g/dl (32-36); Mean Corpuscular Hemoglobin 30.5 pg (26-34); Mean Corpuscular Volume 102.2 fl (80-100); Mean Platelet Volume 10.1 fl (7.4-10.4); Monocytes Absolute Auto 0.8 K/mm3 (0.1-0.6); Monocytes Percent Auto 7.7 % (2.6-8.5); Neutrophils Absolute Auto 5.3 K/mm3 (1.3-6.7); Neutrophils Percent Auto 50.3 % (45.5-73.1); Platelet Count Result 269 k/mm3 (150-375); Red Blood Count 4.16 M/mm3 (4.6-6.20); Red Cell Distribution Width 16.5 % (11.5-14.5); White Blood Count 10.6 K/mm3 (4.5-10.0)
[2024-01-04 06:59] LABS: Alanine Aminotransferase 25 U/L (6-50); Albumin Level 3.5 g/dL (3.5-5.1); Alkaline Phosphatase 80 U/L (38-126); Anion Gap 3 mmol/L (4-12); Aspartate Amino Transferase 38 U/L (17-59); Bilirubin,Total 0.8 mg/dL (0.2-1.3); Blood Urea Nitrogen 14 mg/dL (9-20); Calcium 10.1 mg/dL (8.4-10.2); Carbon Dioxide 31 mmol/L (22-30); Chloride 111 mmol/L (98-107); Estimated CRCL calculation 47 ml/min; Estimated Glomerular Filt Rate 58; Glucose 102 mg/dL (65-110); Magnesium 2.3 mg/dL (1.6-2.3); Phosphorus 3.3 mg/dL (2.5-4.5); Potassium 4.5 mmol/L (3.4-5.0); Sodium 145 mmol/L (137-145)
[2024-01-04 07:18] LABS: Platelet Estimate Adequate (Adequate); Schistocytes None Seen
[2024-01-04 07:19] LABS: Anisocytosis 1+
[2024-01-04 07:20] LABS: Hypochromasia 1+; Target Cells 1+
[2024-01-04 07:32] VITALS: PULSE 61; RESP 18; O2SAT 96
[2024-01-04 07:44] VITALS: PULSE 65; RESP 18
[2024-01-04 09:18] LABS: Lithium 0.4 mmol/L (0.6-1.2)
[2024-01-04] MEDS: ENOXAPARIN 40 MG/0.4 ML SYRINGE SUB-Q (09:39)
[2024-01-04] MEDS: SODIUM CHLORIDE 1 GM TABLET PO (09:40)
[2024-01-04] MEDS: CHOLECALCIFEROL 1,000 UNITS TABLET 1000 UNITS PO (09:40)
[2024-01-04] MEDS: FLUoxetine HCL 10 MG CAPSULE PO (09:40)
[2024-01-04] MEDS: ASCORBIC ACID 500 MG TABLET PO (09:40)
--- NOTE | 2024-01-04 16:43 | PM.DS ---
DS: Admitting Diagnosis Discharge Date 01/04/24 Admitting Diagnosis Altered mental status Acute on chronic respiratory failure with hypoxia [place] toxicity CKD stage 3 JEM on CPAP COPD DS: Discharge Diagnosis Discharge Diagnosis (1) Altered mental status: Qualifiers: Altered mental status type: unspecified Qualified Code(s): R41.82 - Altered mental status, unspecified Code(s): R41.82 - Altered mental status, unspecified Status: Acute (2) Acute on chronic respiratory failure with hypoxia and hypercapnia: Code(s): J96.21 - Acute and chronic respiratory failure with hypoxia; J96.22 - Acute and chronic respiratory failure with hypercapnia Status: Acute (3) [place] toxicity: Code(s): T56.891A - Toxic effect of other metals, accidental (unintentional), initial encounter Status: Acute (4) Chronic kidney disease, stage 3a: Code(s): N18.3 - Chronic kidney disease, stage 3 (moderate) Status: Acute (5) Obstructive sleep apnea on CPAP: Code(s): G47.33 - Obstructive sleep apnea (adult) (pediatric); Z99.89 - Dependence on other enabling machines and devices Status: Acute (6) COPD (chronic obstructive pulmonary disease): Qualifiers: COPD type: COPD with acute exacerbation Qualified Code(s): J44.1 - Chronic obstructive pulmonary disease with (acute) exacerbation Code(s): J44.9 - Chronic obstructive pulmonary disease, unspecified Status: Acute DS: Summary Hospital Course Reason for hospitalization: Altered mental status Acute on chronic respiratory failure with hypoxia [place] toxicity CKD stage 3 JEM on CPAP COPD Hospital Course: 78-year-old male patient with past medical history bipolar disorder on lithium, COPD on 2 L of home oxygen, CKD stage 3, prior CVA, JEM on CPAP, hypothyroidism, hypertension who was brought to the emergency department due to waning level of consciousness at home.?Altered mental status likely multifactorial as the patient had an elevated CO2 on ABG and lithium level on labs. He was started on CPAP and the lithium was held. Patient returned to baseline prior to discharge. Spoke with patients psychiatrist Elen Treadwell in regards to the lithium medication. She states that he was already on this medication prior to establishing with her and she is wondering if he still needs to be on it. She states that this medication can continued to be held as the patient has an appointment with her on January 05 where they can reassess the need. Patient discharged home in stable condition with home health. he has a scheduled appointment with his psychiatrist on January 05 where they will discuss his medication in regards to the bipolar disorder. He will continue to hold the lithium until that time. Patient will also follow up with his PCP in 1-2 weeks. Status at Discharge Functional status at discharge: uses cane/walker Time Spent with Patient Time attestation: Total time spent providing and/or coordinating discharge services: Time spent: Greater than 30 minutes Exam Narrative: AF HR 65 RR 20 SpO2 96 BP 127/78 General: male in no acute respiratory distress who is nontoxic appearing, lying in bed HEENT: Normocephalic. Atraumatic. Pupils equal round reactive to light. Extraocular movement intact. Sclera clear and anicteric. No facial asymmetry. Chest: Lungs are clear to auscultation bilaterally. No wheezes or crackles. CV: Heart was regular rate and rhythm. S1/S2. No murmurs, gallops, or rubs. Abd: Abdomen was soft. Nontender. Nondistended. Positive bowel sounds. No organomegaly or masses. Ext: No clubbing, cyanosis, or edema. 2+ DP pulses bilaterally. Neuro: Patient is alert and oriented x4. Cranial nerves 2-12 are intact. Speech is intermittently garbled. Psych: Normal mood and affect. Patient is pleasant and cooperative. Skin: Warm and dry. No rashes noted. DS: Data Data Completed and Pending Completed studies during
== END 2024-01-04 12:27 | disposition home health service (06) | DRG 189 ==
LOC: ANHED 12:40 → ANH3MEDSUR 13:12
PROVIDERS: Nurse Practitioner; Student in an Organized Health Care Education/Training Program; Admitting Provider Family Medicine; Emergency Provider Family Medicine; PCP Student in an Organized Health Care Education/Training Program; Visit Provider Internal Medicine
DX: J96.21 Acute and chronic respiratory failure with hypoxia (principal); J44.1 Chronic obstructive pulmonary disease with (acute) exacerbation; T56.891A Toxic effect of other metals, accidental (unintentional), initial encounter; J96.22 Acute and chronic respiratory failure with hypercapnia; R41.82 Altered mental status, unspecified; E03.9 Hypothyroidism, unspecified; F31.9 Bipolar disorder, unspecified; G47.33 Obstructive sleep apnea (adult) (pediatric); I12.9 Hypertensive chronic kidney disease with stage 1 through stage 4 chronic kidney disease, or unspecified chronic kidney disease; N18.31 Chronic kidney disease, stage 3a; Z99.81 Dependence on supplemental oxygen; Z86.73 Personal history of transient ischemic attack (TIA), and cerebral infarction without residual deficits; Z99.89 Dependence on other enabling machines and devices; Z87.891 Personal history of nicotine dependence; Z86.711 Personal history of pulmonary embolism; Z86.718 Personal history of other venous thrombosis and embolism; Z91.199 Patient's noncompliance with other medical treatment and regimen due to unspecified reason
CPT/HCPCS: 36415; 36600; 70450; 71045; 80053; 80069; 80178; 81003; 82607; 82746; 82805; 83735; 84100; 85025; 85610; 85730; 92507; 92522; 92610; 93005; 94618; 94640; 94660; 97110; 97116; 97161; 97165; 97530; 99285; A9270; J1650; J7030

== ENCOUNTER 2024-01-13 07:41 | Outpatient (CLI) | payer MEDICARE, SELFPAY ==
[2024-01-13 08:31] LABS: Alanine Aminotransferase 26 U/L (6-50); Alkaline Phosphatase 71 U/L (38-126); Anion Gap 6 mmol/L (4-12); Aspartate Amino Transferase 29 U/L (17-59); Blood Urea Nitrogen 18 mg/dL (9-20); Calcium 9.6 mg/dL (8.4-10.2); Carbon Dioxide 27 mmol/L (22-30); Chloride 104 mmol/L (98-107); Estimated Glomerular Filt Rate 49; Glucose 85 mg/dL (65-110); Sodium 137 mmol/L (137-145)
[2024-01-13 08:44] LABS: Basophils Absolute Auto 0.1 K/mm3 (0.0-0.1); Basophils Percent Auto 0.6 % (0.2-1.2); Eosinophils Absolute Auto 0.2 K/mm3 (0-0.3); Eosinophils Percent Auto 1.3 % (0-4.4); Hematocrit 44.3 % (42.0-52.0); Hemoglobin 13.3 g/dL (14.0-18.0); Immature Granulocyte Absolute 0.04 K/mm3 (0.00-0.031); Immature Granulocyte Percent A 0.3 % (0-0.5); Lymphocytes Absolute Auto 4.91 K/mm3 (0.9-3.2); Lymphocytes Percent Auto 41.9 % (18.3-44.2); Mean Corpuscular Hemoglobin 31.1 pg (26-34); Mean Corpuscular Volume 103.5 fl (80-100); Mean Platelet Volume 10.4 fl (7.4-10.4); Monocytes Percent Auto 8.1 % (2.6-8.5); Neutrophils Absolute Auto 5.6 K/mm3 (1.3-6.7); Neutrophils Percent Auto 47.8 % (45.5-73.1); Platelet Count Result 297 k/mm3 (150-375); Red Blood Count 4.28 M/mm3 (4.6-6.20); White Blood Count 11.7 K/mm3 (4.5-10.0)
[2024-01-13 09:17] LABS: Lithium 0.9 mmol/L (0.6-1.2)
== END 2024-01-13 07:42 | disposition home or self-care (01) ==
LOC: ANHLAB 07:44
PROVIDERS: PCP Student in an Organized Health Care Education/Training Program; Visit Provider Registered Nurse Psychiatric/Mental Health, Adult
DX: R78.89 Finding of other specified substances, not normally found in blood (principal); E87.8 Other disorders of electrolyte and fluid balance, not elsewhere classified
CPT/HCPCS: 36415; 80053; 80178; 85025

== ENCOUNTER 2024-01-22 07:53 | Outpatient (CLI) | payer MEDICARE, SELFPAY ==
[2024-01-22 08:35] LABS: Alanine Aminotransferase 31 U/L (6-50); Alkaline Phosphatase 71 U/L (38-126); Aspartate Amino Transferase 31 U/L (17-59); Bilirubin,Total 1.5 mg/dL (0.2-1.3)
[2024-01-22 08:52] LABS: Lithium 0.8 mmol/L (0.6-1.2)
[2024-01-22 09:18] LABS: T4 Thyroxine 8.54 ug/dL (5.53-11.0)
== END 2024-01-22 07:54 | disposition home or self-care (01) ==
PROVIDERS: PCP Student in an Organized Health Care Education/Training Program; Visit Provider Registered Nurse Psychiatric/Mental Health, Adult
DX: R79.89 Other specified abnormal findings of blood chemistry (principal); E03.9 Hypothyroidism, unspecified
CPT/HCPCS: 36415; 80076; 80178; 84436; 84443

== ENCOUNTER 2024-02-04 17:52 | Inpatient (IN) | payer MEDICARE, SELFPAY ==
--- NOTE | ~2024-02-04 | XR_ITS ---
XR chest 1V portable Ordering provider: Anastasia Ch MD History: 78 years Male with . fever . Comparison: December 31, 2023 FINDINGS: MEDIASTINUM: The cardiac silhouette is not enlarged. LUNGS: No infiltrates, effusions or pneumothorax. Prominent markings bilaterally with underlying fibrotic changes. Pneumonitis cannot be excluded. OTHER: No free air under the diaphragm. IMPRESSION: No acute cardiopulmonary pathology. Reviewed, dictated and finalized at location A.
--- NOTE | ~2024-02-04 | CT_ITS ---
CTA chest PE abdomen pel Ordering provider: Anastasia hC MD History: . SOB . Comparison: None. Technique: CT angiogram chest was performed following timed intravenous injection of contrast. Thin s lice axial images and reformatted coronal images were obtained. Three dimensional reformatted images of the chest were also obtained using a [employer] workstation. Also, CT of the abdomen and pelvis was pe rformed with IV contrast. . Automated exposure control and iterative reconstruction technique were e mployed. The dose-length product was 1519.14 mGy-cm. 100 mL of Omnipaque 350 was given IV. FINDINGS: CHEST: --PULMONARY ARTERIES: No pulmonary embolus. --VISUALIZED THORACIC INLET: Normal. --MEDIASTINUM: Aorta/coronary arteries: Mild atheromatous disease. Heart/other: The heart is slightly enlarged. Minimal pericardial effusion. Lymph nodes: No mediastinal or hilar adenopathy. --LUNGS: Bilateral atelectasis versus early pneumonia in the lower lobes. No pulmonary nodules or masses. No i nfiltrates or effusions. No pneumothorax. --MUSCULOSKELETAL: Bones: Age appropriate degenerative changes of the spine. Superficial soft tissues: The superficial soft tissues are normal. ABDOMEN/PELVIS: --MUSCULOSKELETAL: Superficial soft tissues: The superficial soft tissues are normal. Bones: Age appropriate degenerative changes of the spine. Spondylolisthesis at the level of L5-S1. Bi lateral spondylolysis. Severe degenerative disc disease at the level of L5-S1. --UPPER ABDOMINAL ORGANS: Liver: Normal. Gallbladder: Normal. Spleen: Status post splenectomy. Small splenule is seen in the area. Stomach/duodenum: Postoperative changes in the gastroesophageal area. Pancreas: Atrophic pancreas. Prominent pancreatic duct. Adrenals: Normal. Kidneys: Bilateral multiple renal cysts. --PELVIC ORGANS: The bladder is normal. No bladder stones. --BOWEL AND MESENTERY: Colon: No evidence of diverticulitis. Normal appendix. Small Bowel: Normal. No obstruction. Peritoneum/mesentery: No free air or free fluid. No mesenteric lymphadenopathy. --RETROPERITONEUM: Mild atheromatous disease of the abdominal aorta. No retroperitoneal lymphadenop athy.Small para-aortic lymph nodes. IMPRESSION: CHEST: 1. Bilateral basal subsegmental atelectasis versus pneumonia seen posteriorly. 2. Trace of pericardial effusion.. ABDOMEN/PELVIS: 1. No evidence of appendicitis, diverticulitis or intestinal obstruction. 2. Multiple bilateral renal cysts. 3. Status post splenectomy with postoperative changes in the left upper quadrant. Reviewed, dictated and finalized at location A. IMPRESSION: CHEST: 1. Bilateral basal subsegmental atelectasis versus pneumonia seen posteriorly. 2. Trace of pericardial effusion.. ABDOMEN/PELVIS: 1. No evidence of appendicitis, diverticulitis or intestinal obstruction. 2. Multiple bilateral renal cysts. 3. Status post splenectomy with postoperative changes in the left upper quadra nt.
[2024-02-04 17:59] VITALS: BP 126/68; PULSE 102; RESP 28; TEMP 38.7; O2SAT 93
--- NOTE | 2024-02-04 18:25 | ECG_ITS ---
Test Date: 2024-02-04 18:36:37 Measurements Intervals [place] Rate: 101 P: -3 [place]: 184 QRS: 46 QRSD: 180 T: 0 QT: 420 QTc: 544 Interpretive Statements ATRIAL FLUTTER/TACHYCARDIA WITH RAPID VENTRICULAR RESPONSE RIGHT BUNDLE BRANCH BLOCK ABNORMAL ECG Compared to ECG 12/31/2023 09:37:28 ATRIAL FLUTTER/TACHYCARDIA NOW PRESENT Electronically Signed On 02-04-2024 20:40:12 CDT by Crow Rosales D.O.
[2024-02-04] MEDS: ACETAMINOPHEN 325 MG TABLET 650 MG PO (18:36)
[2024-02-04 19:27] LABS: Basophils Absolute Auto 0.1 K/mm3 (0.0-0.1); Basophils Percent Auto 0.4 % (0.2-1.2); Eosinophils Percent Auto 0.2 % (0-4.4); Hematocrit 38.7 % (42.0-52.0); Hemoglobin 11.8 g/dL (14.0-18.0); Immature Granulocyte Absolute 0.18 K/mm3 (0.00-0.031); Lymphocytes Absolute Auto 1.14 K/mm3 (0.9-3.2); Lymphocytes Percent Auto 6.3 % (18.3-44.2); Mean Corpuscular HGB Conc 30.5 g/dl (32-36); Mean Corpuscular Hemoglobin 30.8 pg (26-34); Mean Platelet Volume 10.2 fl (7.4-10.4); Monocytes Absolute Auto 1.5 K/mm3 (0.1-0.6); Monocytes Percent Auto 8.2 % (2.6-8.5); Neutrophils Absolute Auto 15.3 K/mm3 (1.3-6.7); Neutrophils Percent Auto 83.9 % (45.5-73.1); Platelet Count Result 226 k/mm3 (150-375); Red Blood Count 3.83 M/mm3 (4.6-6.20); Red Cell Distribution Width 15.8 % (11.5-14.5); White Blood Count 18.2 K/mm3 (4.5-10.0)
[2024-02-04 19:36] LABS: Lactic Acid Reflex 1.3 mmol/L (0.7-2.0)
[2024-02-04 19:38] LABS: Alanine Aminotransferase 21 U/L (6-50); Albumin Level 3.6 g/dL (3.5-5.1); Alkaline Phosphatase 66 U/L (38-126); Anion Gap 7 mmol/L (4-12); Aspartate Amino Transferase 31 U/L (17-59); Bilirubin,Total 0.8 mg/dL (0.2-1.3); Blood Urea Nitrogen 25 mg/dL (9-20); Calcium 9.1 mg/dL (8.4-10.2); Carbon Dioxide 22 mmol/L (22-30); Chloride 109 mmol/L (98-107); Estimated CRCL calculation 41 ml/min; Estimated Glomerular Filt Rate 49; Glucose 99 mg/dL (65-110); Potassium 4.2 mmol/L (3.4-5.0); Sodium 138 mmol/L (137-145)
[2024-02-04 19:39] LABS: INR 1.1; Partial Thromboplastin Time 27.1 Seconds (22.3-36.8); Prothrombin Time 14.2 Seconds (11.1-14.7)
--- NOTE | 2024-02-04 20:00 | ED.GENADULT ---
HPI - General Adult General Chief complaint: Environmental Exposure Stated complaint: heat exposure Time Seen by Provider: 02/04/24 18:27 History of Present Illness HPI narrative: Patient is a 78-year-old male who presents to the emergency department this afternoon due to a fever. Patient was outside cutting grass for 2 hours in the sun and when he went inside to go sit in the porch he started to feel lightheaded as if he was going to pass out. What who is currently present at bedside told him not to spend much time out in the sun since there is no shade since they recently cut their tree. Per EMS, patient's temperature was noted to be 106.6? F upon their arrival. Patient does wear 2 L of oxygen around the clock and they did have to increase it to 4 L prior to arrival. In triage, temperature was noted to be 101.6. Patient is alert oriented to person, place, time and situation and is currently denying any concerns or symptoms. Related Data Home Medications Medication Instructions Recorded Confirmed cholecalciferol (vitamin D3) 25 1,000 unit PO DAILY 06/07/19 12/31/23 mcg (1,000 unit) capsule (Vitamin D3) fluoxetine 20 mg capsule (Prozac) 10 mg PO BID 06/07/19 12/31/23 albuterol sulfate 2.5 mg/3 mL 2.5 mg inhalation Q4-6H PRN 09/03/20 12/31/23 (0.083 %) solution for nebulization Shortness Of Breath Or Wheezing ixekizumab 80 mg/mL subcutaneous 80 mg subcut .biweekly 03/08/23 12/31/23 auto-injector (Taltz Autoinjector) levothyroxine 50 mcg tablet 50 mcg PO DAILY 03/08/23 12/31/23 ascorbate calcium (vitamin C) 500 500 mg PO DAILY 12/31/23 12/31/23 mg capsule ferrous sulfate 325 mg (65 mg 325 mg PO DAILY 12/31/23 12/31/23 iron) tablet sodium chloride 1 gram tablet 1,000 mg PO DAILY 12/31/23 12/31/23 Allergies Allergy/AdvReac Type Severity Reaction Status Date / Time No Known Allergies Allergy Mild Verified 02/04/24 18:12 Review of Systems Review of Systems: All systems are reviewed and are negative unless stated otherwise in the HPI. [facility] Past Medical History Medical History Bipolar disorder Cerebrovascular accident Brain MRI in 03/2020 showed infarcts in both cerebellar hemispheres. Chronic kidney disease, stage 3 Baseline creatinine is around 1.50. Chronic obstructive pulmonary disease Chronic respiratory failure with hypoxia, on home oxygen therapy Depression Essential tremor Prescribed carbidopa-levodopa by Dr. Heath. Former smoker 30-40 years x 3 ppd --> at least 90 pack years. Hypertension Hypothyroidism Lymphoma Patient is poor historian regarding this, but he is followed by Dr. Mcneil and is not currently undergoing treatment. Obstructive sleep apnea on CPAP Perforated gastric ulcer (~1983) Psoriasis Venous thromboembolism DVT and pulmonary embolism in 03/2012. Surgical History Surgical History History of laparotomy (~1983) For perforated ulcer. Family History Family History Sibling Patient's brother is in good health Mother Acute myocardial infarction, Onset Age: 89 Social History Social History Social History: The patient lives with his , Angelica, and their son in [facility]. His is his surrogate decision maker and he wishes to be a full code. He smoked up to 3 packs of cigarettes per day for 40 years and quit in 1999. He drinks 4 alcoholic beverages a week. No drug use. Primary care provider is Dr. Alicea. Smoking packs per day: 3 Smoking cigarettes per day: 60.0 Years smoked: 40 Smoking pack-years: 120.00 Smoking status: Former smoker Tobacco type: cigarettes Alcohol intake: current Drinks per week: 6 Substance use: current Substance use type: marijuana Other substance usage details: 08/2023 D
[2024-02-04 20:04] LABS: Influenza A QL RT-PCR Negative (Negative); Influenza B QL RT-PCR Negative (Negative); RSV RNA, RT-PCR Negative (Negative); SARS-CoV-2 RNA PCR Negative (Negative)
[2024-02-04] MEDS: cefTRIAXone 2 GM/NS 100 ML 2 GM/100 ML BAG IVPB (20:45)
[2024-02-04 21:48] VITALS: BP 100/60; PULSE 90; RESP 15; O2SAT 100
[2024-02-04 21:53] LABS: Appearance Urine Clear (Clear); Bilirubin Urine Negative (Negative); Blood Urine Negative (Negative); Color Urine Yellow (Yellow); Glucose Urine UA Negative (Negative); Ketones Urine Negative (Negative); Leukocyte Esterase Ur Negative LEU/UL (Negative); Nitrate Urine Negative (Negative); Protein Urine Negative (Negative); Specific Grav Ur 1.014 (1.001-1.035); Urobilinogen Urine 0.2 mg/dL (<2.0); pH Urine 5.5 (5.0-9.0)
[2024-02-04 22:13] LABS: Add Urine Microscopic? NO
[2024-02-04] MEDS: SODIUM CHLORIDE 0.9% IV 1,000 ML 999 ML IV CONT (22:23)
[2024-02-04] MEDS: IBUPROFEN 600 MG TABLET PO (22:23)
[2024-02-04] MEDS: AZITHROMYCIN 500 MG/NS 250 ML 500 MG/250 ML BAG 250 MG IVPB (22:23)
[2024-02-04 22:25] LABS: Creatine Kinase 68 U/L (55-170)
[2024-02-04 22:26] VITALS: BP 104/64; PULSE 74; RESP 15; TEMP 36.6; O2SAT 99
--- NOTE | 2024-02-04 23:10 | ADMGEN ---
This patient, Juarez Bermudez, was admitted to Medical Room 242-. Patient/family oriented to hospital policies and general routines including ID bracelet, bed and alarms, visiting hours, pain management, procedures, bathroom and other care routines, personal items, smoking policy, room service/diet, and visiting hours. Information on how to activate the Rapid Response Team has been discussed. Patient/Family are encouraged to report perceived risks to care and to ask questions if they do not understand what they are told or what they should do.
[2024-02-04 23:21] VITALS: BP 95/56; PULSE 65; RESP 18; TEMP 36.5; O2SAT 97
[2024-02-04 23:22] VITALS: BMI 28.5
[2024-02-04 23:27] VITALS: BP 95/56; PULSE 65; RESP 18; TEMP 36.5; O2SAT 97; BMI 28.5
[2024-02-04 23:54] VITALS: PULSE 65; RESP 18; O2SAT 97
[2024-02-05] VITALS (14 sets, daily range): BP systolic 101–106; BP diastolic 54–61; PULSE 51–97; RESP 16–20; TEMP 36.2–36.6; O2SAT 96–99
--- NOTE | 2024-02-05 | ECHO_ITS ---
Patient Info Name: Juarez Bermudez Age: 78 years : 1945 Gender: Male Ht: 71 in Wt: 204 lbs BSA: 2.17 m2 HR: 58 bpm BP: 101 / 57 mmHg Technical Quality: Fair Exam Date: 02/05/2024 10:00 AM Exam Location: Echo Lab Patient Status: Inpatient Admit Date: 02/04/2024 Staff Ordering Physician: Abdirahman Holly APRN Clinical Engineering Director: Arron Graham RDCS Attending Provider: Trinity Sim MD Referring Physician: Avni CONROY; Exam Type: CA echo doppler color flow Study Info Indications - cardiomegaly and trace pleural effusions Complete two-dimensional, color flow and Doppler transthoracic echocardiogram is performed. Summary 1. Complete two-dimensional, color flow and Doppler transthoracic echocardiogram is performed. 2. Left ventricular chamber dimension is normal. 3. Left ventricular systolic function is normal, estimated at 60-65%. 4. There is mild concentric increased left ventricular wall thickness. 5. The left ventricular diastolic function is abnormal. 6. E/e' 10 is mildly elevated. 7. Left atrial chamber dimension is mildly enlarged. 8. Right atrial chamber dimension is mildly enlarged. 9. There is mild aortic valve sclerosis. 10. The mitral valve has mildly calcified annulus. 11. There is trace tricuspid valve regurgitation. 12. No pulmonary hypertension, estimated pulmonary arterial systolic pressure is 34 mmHg. 13. The aortic root size at the sinus of Valsalva is borderline dilated at 4.1 cm. 14. Dilated inferior vena cava with >50% collapse upon inspiration consistent with elevated right atrial pressure, 10 mmHg. Left Ventricle E/e' 10 is mildly elevated. Left ventricular chamber dimension is normal. Left ventricular systolic function is normal, estimated at 60-65%. There is mild concentric increased left ventricular wall thickness. The left ventricular diastolic function is abnormal. Right Ventricle Right ventricular systolic function is normal and with normal TAPSE 2.1 cm. Right ventricular chamber dimension is normal. Left Atria Left atrial chamber dimension is mildly enlarged. Right Atria Right atrial chamber dimension is mildly enlarged. Aortic Valve The aortic valve is trileaflet. There is mild aortic valve sclerosis. There is no aortic valve stenosis. There is no aortic valve regurgitation. Pulmonic Valve There is no pulmonic regurgitation. Mitral Valve The mitral valve has mildly calcified annulus. There is no mitral valve stenosis. There is no mitral valve regurgitation. Tricuspid Valve There is trace tricuspid valve regurgitation. No pulmonary hypertension, estimated pulmonary arterial systolic pressure is 34 mmHg. Pericardium/Pleural There is no pericardial effusion. Inferior Vena Cava Dilated inferior vena cava with >50% collapse upon inspiration consistent with elevated right atrial pressure, 10 mmHg. Aorta The aortic root size at the sinus of Valsalva is borderline dilated at 4.1 cm. Left Ventricular Outflow Tract Name Value Normal LVOT 2D LVOT Diameter 2.0 cm LVOT Doppler LVOT Peak Gradient 3 mmHg LVOT Mean Gradient 2 mmHg LVOT VTI 23 cm LVOT V
--- NOTE | 2024-02-05 03:31 | PM.IMHP ---
H&P: HPI History of Present Illness Date/Time: 02/05/24 03:31 Chief Complaint: Fever Narrative: This is a pleasant 78-year-old male with a PMH bipolar disorder, COPD on 2 L of home oxygen chronic respiratory failure, CKD stage 3, prior CVA, JEM on CPAP, hypothyroidism, hypertension, former smoker who presents with weakness and lightheadedness. The patient was cutting grass for 2 hours. The had told him not to spend too much time out in the hot sun on the day of admission. EMS was called and his temperature was noted to be 106.6? F. his O2 was increased to 4 L. triage temperature and [facility] ED noted to be 101.6? F. the patient otherwise had no complaints. CT chest abdomen pelvis demonstrates possible pneumonia. Wbc's 18,200, INR 1.1, serum creatinine 1.40 creatinine kinase 68. Patient administered 1 L normal saline bolus along with acetaminophen 650 mg p.o. x1, ceftriaxone 2 g IV x1, ibuprofen 600 mg p.o. x1, azithromycin 500 mg IV x1. Admitted on 02/05/2024 for heat exhaustion. Review of Systems Review of Systems: All systems reviewed & are unremarkable except as noted in HPI and below (Subjective) PMFSH Past Medical History Medical History Bipolar disorder Cerebrovascular accident Brain MRI in 03/2020 showed infarcts in both cerebellar hemispheres. Chronic kidney disease, stage 3 Baseline creatinine is around 1.50. Chronic obstructive pulmonary disease Chronic respiratory failure with hypoxia, on home oxygen therapy Depression Essential tremor Prescribed carbidopa-levodopa by Dr. Heath. Former smoker 30-40 years x 3 ppd --> at least 90 pack years. Hypertension Hypothyroidism Lymphoma Patient is poor historian regarding this, but he is followed by Dr. Mcneil and is not currently undergoing treatment. Obstructive sleep apnea on CPAP Perforated gastric ulcer (~1983) Psoriasis Venous thromboembolism DVT and pulmonary embolism in 03/2012. Surgical History Surgical History History of laparotomy (~1983) For perforated ulcer. Family History Family History Sibling Patient's brother is in good health Mother Acute myocardial infarction, Onset Age: 89 Social History Social History Social History: The patient lives with his , Angelica, and their son in [facility]. His is his surrogate decision maker and he wishes to be a full code. He smoked up to 3 packs of cigarettes per day for 40 years and quit in 1999. He drinks 4 alcoholic beverages a week. No drug use. Primary care provider is Dr. Alicea. Smoking packs per day: 2 Smoking cigarettes per day: 40.0 Years smoked: 40 Smoking pack-years: 80.00 Smoking status: Former smoker Tobacco type: cigarettes Alcohol intake: never Drinks per week: 6 Substance use: never Substance use type: marijuana Other substance usage details: 08/2023 Do You Feel Safe in your Home?: Yes Lack of Transportation: No Lack of Food: Never True Current Housing: I Have Housing Concerned About Future Housing: No Difficulty Paying Gas/Electric Bills: No Difficulty Paying for Meds: No Currently Unemployed: No Education: Trade/Vocational Certificate Difficulty w/ Childcare or Family Care: No Gender identity (if verbalized by the patient): Male Spiritual care concerns: No Agree to blood products: Yes Meds Home Medications and Allergies Home Medications Medication Instructions Recorded Confirmed Type cholecalciferol (vitamin D3) 25 1,000 unit PO DAILY 06/07/19 02/04/24 History mcg (1,000 unit) capsule (Vitamin D3) fluoxetine 20 mg capsule (Prozac) 20 mg PO Q12H 06/07/19 02/04/24 History albuterol sulfate 2.5 mg/3 mL 2.5 mg inhalation Q4-6H PRN 09/03/20 02/04/24 History (0.0
[2024-02-05] MEDS: SODIUM CHLORIDE 0.9% IV 1,000 ML 100 ML IV CONT (04:30)
[2024-02-05] MEDS: SODIUM CHLORIDE 0.9% IV 250 ML 100 ML IV CONT (04:30)
[2024-02-05 05:01] LABS: Basophils Absolute Auto 0.1 K/mm3 (0.0-0.1); Basophils Percent Auto 0.4 % (0.2-1.2); Eosinophils Percent Auto 0.1 % (0-4.4); Hematocrit 38.2 % (42.0-52.0); Hemoglobin 11.2 g/dL (14.0-18.0); Immature Granulocyte Absolute 0.06 K/mm3 (0.00-0.031); Immature Granulocyte Percent A 0.4 % (0-0.5); Lymphocytes Absolute Auto 5.02 K/mm3 (0.9-3.2); Lymphocytes Percent Auto 34.1 % (18.3-44.2); Mean Corpuscular HGB Conc 29.3 g/dl (32-36); Mean Corpuscular Hemoglobin 30.8 pg (26-34); Mean Corpuscular Volume 104.9 fl (80-100); Mean Platelet Volume 10.2 fl (7.4-10.4); Monocytes Absolute Auto 1.2 K/mm3 (0.1-0.6); Neutrophils Absolute Auto 8.4 K/mm3 (1.3-6.7); Platelet Count Result 214 k/mm3 (150-375); Red Blood Count 3.64 M/mm3 (4.6-6.20); Red Cell Distribution Width 16.1 % (11.5-14.5); White Blood Count 14.7 K/mm3 (4.5-10.0)
[2024-02-05 05:13] LABS: Anion Gap 7 mmol/L (4-12); Blood Urea Nitrogen 24 mg/dL (9-20); Calcium 9.1 mg/dL (8.4-10.2); Carbon Dioxide 22 mmol/L (22-30); Chloride 111 mmol/L (98-107); Estimated CRCL calculation 44 ml/min; Estimated Glomerular Filt Rate 53; Glucose 102 mg/dL (65-110); Potassium 4.6 mmol/L (3.4-5.0); Sodium 140 mmol/L (137-145)
[2024-02-05 05:15] LABS: Magnesium 2.4 mg/dL (1.6-2.3)
[2024-02-05 05:31] LABS: Procalcitonin 0.5 ng/mL
[2024-02-05] MEDS: LEVOTHYROXINE SODIUM 50 MCG TABLET PO (06:18)
[2024-02-05 08:18] LABS: NT Pro B Type Natriuretic Pept 526 pg/mL (19.9-100)
[2024-02-05 08:35] LABS: Lithium 0.9 mmol/L (0.6-1.2)
[2024-02-05 08:40] LABS: Thyroid Stimulating Hormone Reflex 0.806 uIU/mL (0.465-4.68)
[2024-02-05] MEDS: SODIUM CHLORIDE 1 GM TABLET PO ×2 (09:17→20:07)
[2024-02-05] MEDS: CHOLECALCIFEROL 1,000 UNITS TABLET 1000 UNITS PO (09:17)
[2024-02-05] MEDS: ATORVASTATIN 20 MG TABLET PO (09:17)
[2024-02-05] MEDS: LITHIUM CARBONATE 300 MG CAPSULE PO ×2 (09:17→20:07)
[2024-02-05] MEDS: ASCORBIC ACID 500 MG TABLET PO (09:17)
[2024-02-05] MEDS: CYANOCOBALAMIN 1,000 MCG TABLET 1000 MCG PO (09:17)
[2024-02-05] MEDS: FLUoxetine HCL 20 MG CAPSULE PO ×2 (09:18→20:07)
--- NOTE | 2024-02-05 10:55 | ECG_ITS ---
Test Date: 2024-02-05 11:04:22 Measurements Intervals [place] Rate: 50 P: 53 PA: 276 QRS: 62 QRSD: 146 T: 52 QT: 469 QTc: 431 Interpretive Statements SINUS BRADYCARDIA WITH FIRST DEGREE AV BLOCK RIGHT BUNDLE BRANCH BLOCK BASELINE ARTIFACT- I, II, AVR, AVF ABNORMAL ECG Compared to ECG 02/04/2024 18:36:37 SINUS RHYTHM NOW PRESENT First degree AV block now present Atrial flutter no longer present Electronically Signed On 02-05-2024 14:22:51 CDT by Crow Rosales D.O.
--- NOTE | 2024-02-05 13:40 | PM.IMPN ---
Progress Note: A&P Assessment and Plan (1) Exertional heat stroke: Code(s): T67.02XA - Exertional heatstroke, initial encounter Status: Acute Assessment and Plan: Intial temp 106.6 per EMS, 101 in ER patient feeling better but not discharged due to cardiac dysrhythmia (2) Pneumonia: Code(s): J18.9 - Pneumonia, unspecified organism Status: Acute Assessment and Plan: 02/04: CTA results --LUNGS: Bilateral atelectasis versus early pneumonia in the lower lobes. No pulmonary nodules or masses. No infiltrates or effusions. No pneumothorax. prolonged QTC on prior EKG, discontinue azithromycin changed to doxycycline, continue Rocephin (3) Leukocytosis: Code(s): D72.829 - Elevated white blood cell count, unspecified Status: Acute Assessment and Plan: possibly due to stress exertion/heat verses possible developing pneumonia (4) Chronic obstructive pulmonary disease: Code(s): J44.9 - Chronic obstructive pulmonary disease, unspecified Status: Acute Assessment and Plan: 2 liters/minute at home, CPAP at night for JEM (5) Chronic respiratory failure with hypoxia, on home oxygen therapy: Code(s): J96.11 - Chronic respiratory failure with hypoxia; Z99.81 - Dependence on supplemental oxygen Status: Acute Assessment and Plan: 2 liters/minute at home, CPAP at night for JEM (6) Bradyarrhythmia: Code(s): I49.8 - Other specified cardiac arrhythmias Status: Acute Assessment and Plan: EKG sinus rosalie with first degree block. Telemetry alarmed later and showed some dropped beats (2nd degree block Type 2) Cardiology consulted. Labs repeated and electolytes ok. Time Spent With Patient Time with patient: Greater than 35 minutes Subjective Date/time seen: 02/05/24 13:40 Interval history: Patient reports feeling better than when he came to the hospital. His oxygen has been titrated back down to his baseline setting of 2 L per minute. Nursing staff notified me that bradycardia alarm was sound Ng. Initial admission EKG showed prolonged QTC 544 with atrial flutter/ atrial tachycardia. Ordered additional EKG which was sinus bradycardia with prolonged MO interval /first-degree block. Nursing staff later notified me that telemetry showed heart rate of 38 with dropped beats indicative of 2nd degree type 2 block. Cardiology was consulted patient remains on telemetry. He seems asymptomatic at this time and his electrolytes have been checked. Review of Systems Review of Systems: All systems reviewed & are unremarkable except as noted in HPI and below (Subjective) Exam Const: General: comfortable and no acute distress Eyes: Pupils: Equal, round and reactive pupils present Resp: Effort & Inspection: normal respiratory effort Auscultation: clear to auscultation bilaterally Cardio: Rate: bradycardic Rhythm: regular rhythm Neuro: Cranial nerves: Yes Equal, round and reactive pupils present Extrem: General: no edema Objective Data Vital Signs Vital Signs: Vital Signs - 24 hr 02/04/24 17:59 02/04/24 21:48 02/04/24 22:26 Temperature 38.7 C H 36.6 C Pulse Rate 102 H 90 74 Respiratory Rate 28 H 15 15 Blood Pressure 126/68 100/60 104/64 Pulse Oximetry 93 100 99 Oxygen Delivery Nasal Cannula Oxygen Flow Rate 4 02/04/24 23:21 02/04/24 23:54 02/05/24 02:17 Temperature 36.5 C 36.2 C L Pulse Rate 65 65 Respiratory Rate 18 18 Blood Pressure 95/56 L Pulse Oximetry 97 97 Oxygen Delivery Nasal Cannula Oxygen Flow Rate 3 02/05/24 04:49 02/05/24 00:00 02/05/24 04:00 Temperature 36.3 C L Pulse Rate 58 L 58 L 57 L Respiratory Rate 18 Blood Pressure 101/57 L Pulse Oximetry 99 Oxygen Delivery Oxygen Flow Rate 02/05/24 09:30 02/05/24 10:18 02/04/24 23:27 Temperature 36.5 C Pulse Rate 65 Respiratory Rate 18 Blood Pressure 95/56 L Pulse Oximetry 99 96 97 Oxygen Delivery Nasal Álvaro
[2024-02-05 15:47] LABS: Prothrombin Time 13.9 Seconds (11.1-14.7)
[2024-02-05 15:48] LABS: Partial Thromboplastin Time 29.3 Seconds (22.3-36.8)
[2024-02-05 15:49] LABS: Creatine Kinase 69 U/L (55-170)
[2024-02-05 15:50] LABS: Albumin Level 3.3 g/dL (3.5-5.1); Anion Gap 1 mmol/L (4-12); Blood Urea Nitrogen 22 mg/dL (9-20); Calcium 9.5 mg/dL (8.4-10.2); Carbon Dioxide 28 mmol/L (22-30); Chloride 111 mmol/L (98-107); Estimated CRCL calculation 44 ml/min; Estimated Glomerular Filt Rate 53; Glucose 93 mg/dL (65-110); Magnesium 2.5 mg/dL (1.6-2.3); Phosphorus 3.9 mg/dL (2.5-4.5); Potassium 4.5 mmol/L (3.4-5.0); Sodium 140 mmol/L (137-145)
[2024-02-05] MEDS: DOXYCYCLINE HYCLATE 100 MG TABLET PO (20:07)
[2024-02-05] MEDS: SODIUM CHLORIDE 0.9% IV 250 ML 10 ML (20:35)
[2024-02-06] VITALS (8 sets, daily range): BP systolic 106–128; BP diastolic 57–66; PULSE 54–68; RESP 18–20; TEMP 36.2–36.4; O2SAT 93–95
[2024-02-06 05:12] LABS: Basophils Absolute Auto 0.1 K/mm3 (0.0-0.1); Basophils Percent Auto 0.7 % (0.2-1.2); Eosinophils Absolute Auto 0.2 K/mm3 (0-0.3); Eosinophils Percent Auto 1.7 % (0-4.4); Hematocrit 41.2 % (42.0-52.0); Hemoglobin 11.8 g/dL (14.0-18.0); Immature Granulocyte Absolute 0.01 K/mm3 (0.00-0.031); Immature Granulocyte Percent A 0.1 % (0-0.5); Lymphocytes Absolute Auto 4.31 K/mm3 (0.9-3.2); Lymphocytes Percent Auto 42.3 % (18.3-44.2); Mean Corpuscular HGB Conc 28.6 g/dl (32-36); Mean Corpuscular Hemoglobin 30.4 pg (26-34); Mean Corpuscular Volume 106.2 fl (80-100); Mean Platelet Volume 10.1 fl (7.4-10.4); Monocytes Absolute Auto 1.1 K/mm3 (0.1-0.6); Monocytes Percent Auto 10.5 % (2.6-8.5); Neutrophils Absolute Auto 4.6 K/mm3 (1.3-6.7); Neutrophils Percent Auto 44.7 % (45.5-73.1); Platelet Count Result 231 k/mm3 (150-375); Red Blood Count 3.88 M/mm3 (4.6-6.20); Red Cell Distribution Width 16.5 % (11.5-14.5); White Blood Count 10.2 K/mm3 (4.5-10.0)
[2024-02-06 05:27] LABS: Albumin Level 3.5 g/dL (3.5-5.1); Anion Gap 5 mmol/L (4-12); Blood Urea Nitrogen 20 mg/dL (9-20); Calcium 9.7 mg/dL (8.4-10.2); Carbon Dioxide 26 mmol/L (22-30); Chloride 113 mmol/L (98-107); Estimated CRCL calculation 44 ml/min; Estimated Glomerular Filt Rate 53; Glucose 98 mg/dL (65-110); Magnesium 2.4 mg/dL (1.6-2.3); Phosphorus 3.5 mg/dL (2.5-4.5); Potassium 4.2 mmol/L (3.4-5.0); Sodium 144 mmol/L (137-145)
[2024-02-06 05:45] LABS: Procalcitonin 0.4 ng/mL
[2024-02-06] MEDS: LEVOTHYROXINE SODIUM 50 MCG TABLET PO (07:02)
--- NOTE | 2024-02-06 08:21 | PM.CNCAR ---
Assessment and Plan Assessment and plan (1) Bradyarrhythmia: Code(s): I49.8 - Other specified cardiac arrhythmias Status: Acute Plan this is a 78-year-old man without prior cardiac history was been found to have conduction system disease with which he is asymptomatic. He has a baseline has sinus rhythm with first-degree AV block and a right bundle branch block. Some episodes of two-to-one AV block have been noted but no higher grade episodes of AV block have been seen thus far. He is not symptomatic nor is he having any long pauses. The patient does not have to be kept in the hospital because of this. I will see him in the office for longitudinal follow-up of his asymptomatic conduction system disease. The office will contact him tomorrow for follow-up appointment. If he has syncopal episode he should contact me for further evaluation of this to discuss the potential need for pacemaker. Explained to the patient at great length today the nature of his AV node dysfunction, the potential need for pacemaker implantation in the future if his AV node dysfunction progresses to a higher grade or becomes symptomatic with syncope. In addition to this his primary care physician needs to be notified of this diagnosis so that the medications which would affect AV node conduction should not be prescribed. Patient cannot tell me at the time of this interview the identity or/name of his PCP apparently he recently changed positions and he does not know the identity of his doctor. Slick Mattson MD [facility] History of Present Illness History of Present Illness Consult date/time: 02/06/24 08:21 Reason For Visit: heat stroke, possible pneumonia, dehydration ANGELIKA Narrative: This is a 78-year-old man I am seeing at the request of the hospitalist today because arrhythmias that have been noted on telemetry. He reports no knowledge of cardiac problems earlier in his life. He has been enjoying remarkably good health at his advanced age and takes very little if any medication for anything as an outpatient. He was admitted to the hospital this past Wednesday with heat exhaustion/heat stroke that occurred outside of his home when he was out working doing yd work in the hot sun and became over came by the he. He came into his home to cool down and he was feeling poorly and according to their chart a temperature of 106? was documented. He was brought to the emergency room for treatment and was admitted to the hospital. With intravenous rehydration he improved his temperature normalized and he has been feeling well the last couple of days. For reasons that are not clear to me he has been placed on telemetry since admission and his telemetry and EKG shows sinus rhythm with right bundle branch block and first-degree AV block. He also yesterday had some episodes of second-degree AV block with two-to-one conduction. No higher grade AV block than this has been identified. He has no history of syncope or presyncope he denies any exertional symptoms such as chest pain shortness of breath orthopnea PND or edema he has no chest pain. His medical regimen at home does not include anything that would affect AV node conduction. He feels well this morning and offers no complaints. He was going to be discharged yesterday but apparently the arrhythmia delayed his discharge. Review of Systems Constitutional: Constitutional: Reports no additional constitutional complaints Eyes: Eyes: Reports no additional eye complaints ENT: Reports system reviewed and no additional complaints, except as documented Cardiovascular: Cardiovascular: Reports no additional cardiovascular complaints Respiratory: Respiratory: Reports no additional respiratory complaints Gastrointestinal: Gastrointestinal: Reports no additional gastrointestinal complaints Genitourinary: Genitourinary: Reports no additional male genitourinary complaints Musculoskeletal: Musculoskeletal: Reports no additio
[2024-02-06] MEDS: ENOXAPARIN 40 MG/0.4 ML SYRINGE SUB-Q (09:34)
[2024-02-06] MEDS: FLUoxetine HCL 20 MG CAPSULE PO (09:34)
[2024-02-06] MEDS: SODIUM CHLORIDE 1 GM TABLET PO (09:35)
[2024-02-06] MEDS: CHOLECALCIFEROL 1,000 UNITS TABLET 1000 UNITS PO (09:35)
[2024-02-06] MEDS: DOXYCYCLINE HYCLATE 100 MG TABLET PO (09:35)
[2024-02-06] MEDS: CYANOCOBALAMIN 1,000 MCG TABLET 1000 MCG PO (09:35)
[2024-02-06] MEDS: ASCORBIC ACID 500 MG TABLET PO (09:35)
[2024-02-06] MEDS: LITHIUM CARBONATE 300 MG CAPSULE PO (09:35)
[2024-02-06] MEDS: ATORVASTATIN 20 MG TABLET PO (09:35)
--- NOTE | 2024-02-06 15:03 | PM.DS ---
DS: Admitting Diagnosis Discharge Date 02/06/24 Admitting Diagnosis heat stroke with pna DS: Discharge Diagnosis Discharge Diagnosis (1) Exertional heat stroke: Code(s): T67.02XA - Exertional heatstroke, initial encounter Status: Acute (2) Pneumonia: Code(s): J18.9 - Pneumonia, unspecified organism Status: Acute (3) Leukocytosis: Code(s): D72.829 - Elevated white blood cell count, unspecified Status: Acute (4) Chronic obstructive pulmonary disease: Code(s): J44.9 - Chronic obstructive pulmonary disease, unspecified Status: Acute (5) Chronic respiratory failure with hypoxia, on home oxygen therapy: Code(s): J96.11 - Chronic respiratory failure with hypoxia; Z99.81 - Dependence on supplemental oxygen Status: Acute (6) Bradyarrhythmia: Code(s): I49.8 - Other specified cardiac arrhythmias Status: Acute DS: Summary Hospital Course Hospital Course: Patient is 78-year-old male who presented emergency room after being outside all day and started having symptoms of dizziness and fever of 106 per EMS. He was also noted to have increased oxygen demand from his normal 2 L to 4 L. CTA chest abdomen pelvis revealed bilateral atelectasis versus pneumonia, trace pericardial effusion in no other acute findings. His COVID was negative as was his UA. He was started on antibiotics for pneumonia and improved. While he was in the hospital was noted to have a bradyarrhythmia with a few episodes of 2-1 AV block. Cardiology was consulted. Patient is asymptomatic with this and denies syncope or persistent dizziness. He has a CPAP at home and he has plans to get another evaluation to see if settings need adjusting. The day of discharge he was back down to his normal 2 L of oxygen and feeling back to baseline. He is going to follow up with Cardiology office and the has the phone number to make the appointment. We discussed that he should not be on any beta-blockers and we reviewed the common medications and I did recommend him speaking with his primary care provider about this as well. His lithium level was normal on admission and patient's mood was stable. We discussed the worrisome signs and symptoms to come back to emergency room for and patient was discharged in stable condition. Time Spent with Patient Time attestation: Total time spent providing and/or coordinating discharge services: 40 min Time spent: Greater than 30 minutes Exam Narrative: General: Well developed well nourished patient in NAD HEENT: normocephalic Neck: supple Neuro: Alert and oriented x4 CV:RRR rate 64 on exam Resp:right lung with mild crackles Abd: Soft, non distended. No pain to palpation. Positive bowel sounds Extremities: No swelling, erythema, or pain to palpation. DS: Data Data Completed and Pending Labs on day of discharge: Labs from last 24 hours 02/06/24 02/05/24 04:18 15:21 WBC 10.2 H RBC 3.88 L Hgb 11.8 L Hct 41.2 L MCV 106.2 H MCH 30.4 MCHC 28.6 L RDW 16.5 H Plt Count 231 MPV 10.1 Immature Gran % (Auto) 0.1 Neut % (Auto) 44.7 L Lymph % (Auto) 42.3 Kern % (Auto) 10.5 H Eos % (Auto) 1.7 Baso % (Auto) 0.7 Lymph # (Auto) 4.31 H Kern # (Auto) 1.1 H Eos # (Auto) 0.2 Baso # (Auto) 0.1 Abs Immat Gran (auto) 0.01 Absolute Neuts (auto) 4.6 Absolute Nucleated RBC 0.000 Nucleated RBC % 0.0 PT 13.9 INR 1.0 APTT 29.3 Sodium 144 140 Potassium 4.2 4.5 Chloride 113 H 111 H Carbon Dioxide 26 28 Anion Gap 5 1 L BUN 20 22 H Creatinine 1.30 1.30 Estim Creat Clear Calc 44 44 Estimated GFR 53 L 53 L Glucose 98 93 Calcium 9.7 9.5 Phosphorus 3.5 3.9 Magnesium 2.4 H 2.5 H Total Creatine Kinase 69 Albumin 3.5 3.3 L Procalcitonin 0.4 Preliminary micro results at discharge 02/04/24 19:45 Blood Culture - Preliminary Blood 02/04/24 19:45 Blood Culture - Preliminary
== END 2024-02-06 16:22 | disposition home or self-care (01) | DRG 922 ==
LOC: ANHED 22:08 → ANH2MED 22:43
PROVIDERS: Emergency Medicine; Nurse Practitioner; Admitting Provider General Practice; Emergency Provider Emergency Medicine; PCP Student in an Organized Health Care Education/Training Program; Visit Provider Physician Assistant
DX: T67.02XA Exertional heatstroke, initial encounter (principal); J18.9 Pneumonia, unspecified organism; J44.0 Chronic obstructive pulmonary disease with (acute) lower respiratory infection; J96.11 Chronic respiratory failure with hypoxia; N17.9 Acute kidney failure, unspecified; D72.829 Elevated white blood cell count, unspecified; I49.8 Other specified cardiac arrhythmias; F31.9 Bipolar disorder, unspecified; I12.9 Hypertensive chronic kidney disease with stage 1 through stage 4 chronic kidney disease, or unspecified chronic kidney disease; N18.30 Chronic kidney disease, stage 3 unspecified; E03.9 Hypothyroidism, unspecified; L40.9 Psoriasis, unspecified; E86.0 Dehydration; G47.33 Obstructive sleep apnea (adult) (pediatric); I44.0 Atrioventricular block, first degree; Z20.822 Contact with and (suspected) exposure to COVID-19; Z87.891 Personal history of nicotine dependence; Z99.81 Dependence on supplemental oxygen; Z85.72 Personal history of non-Hodgkin lymphomas; Z86.711 Personal history of pulmonary embolism; Z86.718 Personal history of other venous thrombosis and embolism; Z86.73 Personal history of transient ischemic attack (TIA), and cerebral infarction without residual deficits
CPT/HCPCS: 36415; 71045; 71275; 74177; 80048; 80053; 80069; 80178; 81003; 82550; 83605; 83735; 83880; 84145; 84443; 85025; 85610; 85730; 87040; 87637; 93005; 93306; 96365; 97161; 97165; 97530; 99285; A9270; J0456; J0696; J1650; J7030; J7050; Q9967

== ENCOUNTER 2024-02-24 11:37 | Outpatient (CLI) | payer MEDICARE, SELFPAY ==
[2024-02-26 14:19] LABS: NIL 0.04 IU/mL; Quantiferon TB Plus, 1T NEGATIVE (NEGATIVE)
== END 2024-02-24 11:38 | disposition home or self-care (01) ==
LOC: ANHLAB 11:40
PROVIDERS: PCP Student in an Organized Health Care Education/Training Program; Visit Provider Dermatology
DX: L40.0 Psoriasis vulgaris (principal)
CPT/HCPCS: 36415; 86480

== ENCOUNTER 2024-02-29 08:27 | Outpatient (CLI) | payer MEDICARE, SELFPAY ==
[2024-02-29 09:12] LABS: Basophils Absolute Auto 0.1 K/mm3 (0.0-0.1); Basophils Percent Auto 0.6 % (0.2-1.2); Eosinophils Absolute Auto 0.1 K/mm3 (0-0.3); Eosinophils Percent Auto 1.2 % (0-4.4); Hematocrit 42.8 % (42.0-52.0); Hemoglobin 12.4 g/dL (14.0-18.0); Immature Granulocyte Absolute 0.03 K/mm3 (0.00-0.031); Immature Granulocyte Percent A 0.3 % (0-0.5); Lymphocytes Absolute Auto 4.72 K/mm3 (0.9-3.2); Lymphocytes Percent Auto 49.8 % (18.3-44.2); Mean Corpuscular Volume 103.6 fl (80-100); Mean Platelet Volume 10.1 fl (7.4-10.4); Monocytes Absolute Auto 0.9 K/mm3 (0.1-0.6); Monocytes Percent Auto 9.9 % (2.6-8.5); Neutrophils Absolute Auto 3.6 K/mm3 (1.3-6.7); Neutrophils Percent Auto 38.2 % (45.5-73.1); Platelet Count Result 228 k/mm3 (150-375); Red Blood Count 4.13 M/mm3 (4.6-6.20); Red Cell Distribution Width 15.5 % (11.5-14.5); White Blood Count 9.5 K/mm3 (4.5-10.0)
[2024-02-29 09:23] LABS: Alanine Aminotransferase 20 U/L (6-50); Albumin Level 4.1 g/dL (3.5-5.1); Alkaline Phosphatase 58 U/L (38-126); Anion Gap 9 mmol/L (4-12); Aspartate Amino Transferase 24 U/L (17-59); Blood Urea Nitrogen 18 mg/dL (9-20); Calcium 9.7 mg/dL (8.4-10.2); Carbon Dioxide 28 mmol/L (22-30); Chloride 101 mmol/L (98-107); Estimated Glomerular Filt Rate 53; Glucose 89 mg/dL (65-110); Potassium 4.2 mmol/L (3.4-5.0); Sodium 138 mmol/L (137-145)
[2024-02-29 09:36] LABS: Lithium 0.7 mmol/L (0.6-1.2)
[2024-02-29 09:39] LABS: Anisocytosis 1+; Hypochromasia 1+; Platelet Estimate Adequate (Adequate); Schistocytes None Seen
[2024-02-29 09:57] LABS: Free T4 Free Thyroxine 1.09 ng/mL (0.78-2.19)
== END 2024-02-29 08:28 | disposition home or self-care (01) ==
PROVIDERS: PCP Student in an Organized Health Care Education/Training Program; Visit Provider Registered Nurse Psychiatric/Mental Health, Adult
DX: R78.89 Finding of other specified substances, not normally found in blood (principal); E03.9 Hypothyroidism, unspecified; K76.9 Liver disease, unspecified; N18.31 Chronic kidney disease, stage 3a
CPT/HCPCS: 36415; 80053; 80178; 84439; 84443; 85025

== ENCOUNTER 2024-04-28 08:44 | Outpatient (CLI) | payer MEDICARE, SELFPAY ==
[2024-04-28 09:23] LABS: Alanine Aminotransferase 17 U/L (6-50); Albumin Level 4.4 g/dL (3.5-5.1); Alkaline Phosphatase 72 U/L (38-126); Aspartate Amino Transferase 29 U/L (17-59)
[2024-04-28 09:41] LABS: T4 Thyroxine 9.82 ug/dL (5.53-11.0)
[2024-04-28 10:00] LABS: Lithium 0.9 mmol/L (0.6-1.2)
== END 2024-04-28 08:45 | disposition home or self-care (01) ==
LOC: ANHLAB 08:48
PROVIDERS: PCP Student in an Organized Health Care Education/Training Program; Visit Provider Registered Nurse Psychiatric/Mental Health, Adult
DX: R78.89 Finding of other specified substances, not normally found in blood (principal); K76.9 Liver disease, unspecified; E03.9 Hypothyroidism, unspecified
CPT/HCPCS: 36415; 80076; 80178; 84436; 84443

== ENCOUNTER 2024-07-19 07:26 | Outpatient (CLI) | payer MEDICARE, SELFPAY ==
[2024-07-19 08:07] LABS: Alanine Aminotransferase 17 U/L (6-50); Albumin Level 4.1 g/dL (3.5-5.1); Alkaline Phosphatase 59 U/L (38-126); Aspartate Amino Transferase 24 U/L (17-59); Bilirubin,Total 1.2 mg/dL (0.2-1.3)
[2024-07-19 08:22] LABS: T4 Thyroxine 7.81 ug/dL (5.53-11.0)
[2024-07-19 09:35] LABS: Lithium 0.8 mmol/L (0.6-1.2)
== END 2024-07-19 07:27 | disposition home or self-care (01) ==
LOC: ANHLAB 07:31
PROVIDERS: PCP Student in an Organized Health Care Education/Training Program; Visit Provider Registered Nurse Psychiatric/Mental Health, Adult
DX: R78.89 Finding of other specified substances, not normally found in blood (principal); K76.9 Liver disease, unspecified; E03.9 Hypothyroidism, unspecified
CPT/HCPCS: 36415; 80076; 80178; 84436; 84443

== ENCOUNTER 2024-08-21 08:58 | Outpatient (CLI) | payer MEDICARE, SELFPAY ==
[2024-08-21 09:30] LABS: Basophils Absolute Auto 0.1 K/mm3 (0.0-0.1); Basophils Percent Auto 0.7 % (0.2-1.2); Eosinophils Absolute Auto 0.1 K/mm3 (0-0.3); Eosinophils Percent Auto 1.2 % (0-4.4); Hematocrit 38.2 % (42.0-52.0); Hemoglobin 11.7 g/dL (14.0-18.0); Immature Granulocyte Absolute 0.02 K/mm3 (0.00-0.031); Immature Granulocyte Percent A 0.2 % (0-0.5); Lymphocytes Absolute Auto 4.66 K/mm3 (0.9-3.2); Lymphocytes Percent Auto 52.9 % (18.3-44.2); Mean Corpuscular HGB Conc 30.6 g/dl (32-36); Mean Corpuscular Volume 101.3 fl (80-100); Mean Platelet Volume 10.1 fl (7.4-10.4); Monocytes Absolute Auto 0.9 K/mm3 (0.1-0.6); Neutrophils Absolute Auto 3.1 K/mm3 (1.3-6.7); Platelet Count Result 161 k/mm3 (150-375); Red Blood Count 3.77 M/mm3 (4.6-6.20); Red Cell Distribution Width 15.3 % (11.5-14.5); White Blood Count 8.8 K/mm3 (4.5-10.0)
[2024-08-21 09:34] LABS: Blood Urea Nitrogen 19 mg/dL (8-26); Carbon Dioxide 25 mmol/L (22-30); Chloride 107 mmol/L (98-109); Estimated Glomerular Filt Rate 42; Glucose 86 mg/dL (70-105); Ionized Calcium (POC) 1.28 mmol/L (1.11-1.31); Potassium 4.4 mmol/L (3.5-4.9); Sodium 141 mmol/L (138-146)
[2024-08-21 09:36] LABS: Atypical Lymphocytes Present; Crenated RBC 1+; Platelet Estimate Adequate (Adequate); Schistocytes None Seen
[2024-08-21 09:37] LABS: Poikilocytosis 1+
[2024-08-21 10:08] LABS: Alanine Aminotransferase 18 U/L (6-50); Albumin Level 3.9 g/dL (3.5-5.1); Alkaline Phosphatase 68 U/L (38-126); Anion Gap 6 mmol/L (4-12); Aspartate Amino Transferase 22 U/L (17-59); Bilirubin,Total 1.2 mg/dL (0.2-1.3); Blood Urea Nitrogen 20 mg/dL (9-20); Calcium 9.9 mg/dL (8.4-10.2); Carbon Dioxide 28 mmol/L (22-30); Chloride 106 mmol/L (98-107); Cholesterol 91 mg/dL (0-200); Estimated Glomerular Filt Rate 54; Glucose 85 mg/dL (65-110); HDL Direct 45 mg/dL; Potassium 4.6 mmol/L (3.4-5.0); Sodium 140 mmol/L (137-145); Triglycerides 61 mg/dL (<150)
[2024-08-21 10:13] LABS: Lactate Dehydrogenase 150 U/L (120-246)
[2024-08-21 10:21] LABS: LDL Cholesterol Direct 33 mg/dL
[2024-08-21 10:39] LABS: Prostate Specific Antigen 0.8 ng/mL (< OR = 4.0)
[2024-08-21 10:48] LABS: HIV 1/2 Ab P24 Ag Result Negative (Negative)
[2024-08-21 11:50] LABS: Hemoglobin A1C 5.7 % (<5.7)
[2024-08-21 13:30] LABS: Iron 99 ug/dL (49-181)
[2024-08-21 13:39] LABS: Percent Iron Saturation 35 % (20-50)
[2024-08-22 21:21] LABS: Folic Acid 6.8 ng/mL (2.76->20)
== END 2024-08-21 08:59 | disposition home or self-care (01) ==
LOC: ANHLAB 09:00
PROVIDERS: PCP Student in an Organized Health Care Education/Training Program; Visit Provider Internal Medicine Hematology & Oncology
DX: C84.90 Mature T/NK-cell lymphomas, unspecified, unspecified site (principal); E78.5 Hyperlipidemia, unspecified; E03.9 Hypothyroidism, unspecified; N18.31 Chronic kidney disease, stage 3a; R63.4 Abnormal weight loss; R73.09 Other abnormal glucose; N40.1 Benign prostatic hyperplasia with lower urinary tract symptoms; R35.0 Frequency of micturition
CPT/HCPCS: 36415; 80047; 80053; 80061; 82607; 82728; 82746; 83036; 83540; 83550; 83615; 84153; 84443; 85025; 86703; G0432

== ENCOUNTER 2024-08-21 11:27 | Outpatient (CLI) | payer MEDICARE, SELFPAY ==
--- NOTE | ~2024-08-21 | CT_ITS ---
EXAMINATION: CT chest abdomen pelvis w con DATE: 08/21/2024 12:00 INDICATION: Hematuria lymphoma TECHNIQUE: Computed tomography (CT) of the chest, abdomen, and pelvis was performed with 100 mL Omnip aque-350 intravenous contrast. Automated exposure control and iterative reconstruction technique were employed. The dose-length product was 794.11 mGy-cm. COMPARISON: 02/04/2024 FINDINGS: CHEST CT: Mild emphysema. Chronic compressive atelectasis/scarring at the right lung base with eventration of t he right hemidiaphragm. Additional mild discoid atelectasis at the lingula. Calcified right apical no dule along with calcified right hilar lymph nodes consistent with old granulomatous disease. Heart si ze is normal. Atherosclerotic coronary artery calcifications. Small pericardial effusion. Thoracic ao rta is normal in caliber with no dissection. Mild thoracic spondylosis. ABDOMEN/PELVIS CT: A few scattered small hepatic calcific lesions consistent with old granulomatous disease. Gallbladder , pancreas and bilateral adrenal glands are normal. Cysts at both kidneys measuring up to 1.2 cm on t he left. 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 Additional postoperative changes at the gastroesophageal junction. Large amount of s tool scattered throughout the colon. Small bowel and appendix are normal with no bowel obstruction. B ladder is normal. No free intraperitoneal gas or fluid. No pathologically enlarged abdominal or pelvi c lymphadenopathy. 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 IMPRESSION: 1. No pathologically enlarged lymphadenopathy or other lesions suspicious for malignancy in the chest , abdomen or pelvis. 2. Large amount of stool throughout the colon consistent with constipation. Reviewed, dictated and finalized at location A. STANT FLOOR COVERING PRINTER IMPRESSION: 1. No pathologically enlarged lymphadenopathy or other lesions suspicious for m alignancy in the chest, abdomen or pelvis. 2. Large amount of stool throughout the colon consistent with constipation.
--- OUTSIDE RECORDS SUMMARY | 2024-08-24 13:02 | XMS_ITS | Encounter Summary ---
Author Organization [facility] [employer] [facility] Address [address] [place] [address] Care Team Providers Care Russian Language Instructor Name Role Phone Adrien Alicea MD Primary Care Provider [phone] Reason for Referral * CT Scan (Urgent) - Closed Specialty Diagnoses / Procedures Referred By Rashid white Referred To Contact Diagnoses Mature NK/t-cell lymphoma, unspecified body region, unspecified mature NK/t-cell lymphoma type (CMS/HCC) Procedures CT CHEST ABDOMEN PELVIS W CONT Timothy Mcneil MD [address] [place] [id number] Phone: tel: fax: [place] [phone] Referral ID Status Reason Start Date Expiration Date V isits Requested Visits Authorized [id number] Closed [facility] CTS 08/21/2024 09/21/2025 1 1 OR BOILER OPERATOR Reason for Visit * Reason Comments Follow Up Encounter Details Date Type Department Care Team (Late st Contact Info) Description 08/21/2024 10:00 AM SENIOR BOILER OPERATOR Office Visit [facility] Oncology and Hematology [facility] [address] [place] [address] Timothy Mcneil MD [address] [place] [address] Mature NK/t-cell lymphoma, unspecified body region, unspecified mature NK/t-cell lymphoma type (CMS/HCC) (Primary Dx); Chronic anemia Social History Tobacco Use Types Packs/Day Years Used Date Smoking Tobacco: Never Smokeless Tobacco: Never Tobacco Cessation:Counseling Given: Not Answered Alcohol Use Standard Drinks/Week Comments Yes 0 (1 standard drink = 0.6 oz pur e alcohol) Sex and Gender Information Value Date Recorded Sex Assigned at Not on file Legal Sex Male 11:36 AM CDT Gender Identity Not on file Sexual Orientation Not on file documented as of this encounter Last Filed Vital Signs Vital Sign Reading Time Taken Comments Blood Pressure 112/65 08/21/2024 10:07 AM SENIOR BOILER OPERATOR Pulse 50 08/21/2024 10:07 AM SENIOR BOILER OPERATOR Temperature 36.2 ??C (97.1 ??F) 08/21/2024 1 0:07 AM SENIOR BOILER OPERATOR Respiratory Rate 15 08/21/2024 10:0 7 AM SENIOR BOILER OPERATOR Oxygen Saturation 93% 08/21/2024 10: 07 AM SENIOR BOILER OPERATOR Inhaled Oxygen Concentration - - Weight 85.5 kg (188 lb 9.6 oz) 08/21/2024 10:07 AM SENIOR BOILER OPERATOR Patient stated that this is the correct weight Height - - Body Mass Index 26.3 08/18/2021 12:19 PM SENIOR BOILER OPERATOR documented in this encounter Progress Notes * Timothy Mcneil MD - 08/21/2024 11:21 AM CST HEMATOLOGY / ONCOLOGY PROGRESS NOTE Patient Identification: Name: Juarez Bermudez Age: 79 y.o. Sex: male : 1945 DIAGNOSIS NK cells lymphoproliferative disorder CURRENT TREATMENT Surveillance TREATMENT HISTORY SUBJECTIVE Patient came to the office for follow-up visit. He denies any night sweats fevers and chills. He has lost 26 pound weight unintentionally. No any night sweats fevers and chills. No bleeding and bruising. No other new complaint. Review of system Constitutional: denies fevers, sweats, denies any tiredness and fatigue, 26 pound weight loss HEENT: denies sinus congestion, hearing or vision problems Respiratory: denies cough, dyspnea, wheeze Cardiovascular: denies chest pain, exertional chest pressure/discomfort, nausea, syncope, shortnessof breath GI: denies constipation, diarrhea, dsyphagia, reflux symptoms, vomiting, melena : denies dysuria, frequency, incontinence, urgency Integumentary system: no lymphadenopathy, sweats, flushing Musculoskeletal: denies: myalgia, arthralgia Neurological: denies blurry or disturbed vision, numbness/weakness, dizziness Skin: No lumps, denies any rash 12 point review of system was reviewed Objective: Vital signs in last 24 hours: As per nursing note Exam: General appearance: alert, cooperative, no distress, appears stated age Head: normocephalic, without obvious abnormality, atraumatic Eyes: conjunctivae/corneas clear, EOM's intact Ears: normal external ear canals AU Nose: Nares normal. Septum midline. Mucosa normal. No drainage or sinus tenderness Throat: Lips, mucosa, and tongue normal. Teeth and gums normal Neck: supple, symmetrical, trachea midline. Lungs: clear to auscultation bilaterally Heart: regular rate and rhythm, S1, S2 normal, no murmur, click, rub or gallop Abdomen: soft, non-tender. Bowel sounds normal. No masses, No organomegaly, there is a scar tissue on the mid incisional line from the previous surgery Extremities: extremities normal, atraumatic, no cyanosis or edema Skin: Skin color, texture, turgor normal. lymph nodes: No left neck lymphadenopathy noted Neuro: No obvious focal deficit Exam as above [facility] labs from May 02, 2019 showed WBC 10.9 hemoglobin 14.4 platelet 223,000 neutrophils 31% lymphocyte 58% sedimentation rate 14 creatinine 1.3 LDH 346 C- reactive protein less than 0.5. Labs from August 16, 2019 showed WBC 12.3 hemoglobin 13 MCV 100 platelet 237,000 neutrophils 37% lymphocyte 47% creatinine 1.5. Labs from May 13 show WBC 12.7 hemoglobin 13.9 platelet 235,000 neutrophils 35% lymphocyte 53% creatinine 1.2 LDH 405 Labs from November 07, 2020 showed WBC 11.6 hemoglobin 14 platelet 226,000 neutrophils 34% lymphocyte 53% LDH 402 creatinine 1.4 Labs from August 14 showed creatinine 1.3 total bilirubin 1.3 LDH 343,000 hemoglobin 14.4 WBC 12.7platelet 311,000 neutrophil 40% lymphocyte 48% Labs from August 12 showed creatinine 1.3 LDH 138 WBC 12.3 platelet 233,000 hemoglobin 14.2 neutrophil 34% lymphocyte 55% Labs from August 18 showed WBC 11.6 hemoglobin 14 platelet 221,000 neutrophils 41% lymphocyte 47% creatinine 1.6 GFR 42 Labs from August 21 show WBC 8.8 hemoglobin 11.7 platelet 161,000 creatinine 1.6 GFR 42 [id number] lymphocyte 52% Assessment: Plan: Patient Active Problem List Diagnosis Date 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 Flow cytometric analysis showed 23% of total leukocyte hadabnormal increased NK cells. PET scan done on May 2019 showed periportal and mild retroperitoneal lymphadenopathy with minimal FDG uptake of 2.4 consistent with lymphoma. There is no evidence of lymphadenopathy on my examination. I am concerned about lymphoproliferativedisorder due to significant amount of weight loss at this time. I will order CT chest abdomen and pelvis now and follow-up in 2 weeks. Anemia. We will order iron studies and vitamin B12 level now. He is taking oral iron once a day. Psoriasis. Stable and will follow-up with the primary care physician. 08/21/2024 Timothy Mcneil MD OR BOILER OPERATOR documented in this encounter Plan of Treatment Upcoming Encounters Date Type Department Care Team (Late st Contact Info) Description 09/04/2024 4:30 PM SENIOR BOILER OPERATOR Telephone Check Up [facility] Oncology and Hematology - [place] [address] [facility] [address] [place] [address] Timothy Mcneil MD [address] [facility] [address] [place] [address] Scheduled Orders Name Type Priority Associated Diagnoses Orde r Schedule CT CHEST ABDOMEN PELVIS W CONT Imaging Stat Mature NK/t-cell lymphoma, unspecified body region, unspecified mature NK/t-cell lymphoma type (CMS/HCC) Expected: 08/22/2024, Expires: 08/21/2025 FERRITIN Lab Routine Chronic anemia Expected: 08/21/2024, Expires: 08/21/2025 IRON, TIBC, AND PERCENT SATURATION Lab Routine Chronic anemia Expected: 08/21/2024, Expires: 08/21/2025 LACTATE DEHYDROGENASE Lab Routine Chronic anemia Expected: 08/21/2024, Expires: 08/21/2025 VITAMIN B12 AND FOLATE Lab Routine Chronic anemia Expected: 08/21/2024, Expires: 08/21/2025 TSH Lab Routine Chronic anemia Expected: 08/21/2024, Expires: 08/21/2025 documented as of this encounter Visit Diagnoses Diagnosis Mature NK/t-cell lymphoma, unspecified body region, unspecified mature NK/t-cell lymphoma type (CMS/HCC)- Primary Chronic anemia Anemia, unspecified documented in this encounter Care Teams Russian Language Instructor Relationship Specialty Start Date End Date Adrien Alicea MD PCP - General Emergency Medicine 04/21/19 documented as of this encounter
--- OUTSIDE RECORDS SUMMARY | 2024-08-24 13:02 | XMS_ITS | Clinical Summary ---
Author Organization [facility] Jarocho Pierce Address [address] [place] [address] Care Team Providers Care Sanitary Aide Name Role Phone Adrien Alicea MD Primary Care Provider [phone] Allergies No known active allergies Medications carbidopa-levod opa (SINEMET) 25-100 mg tablet Take 1 Tablet by mouth 3 times daily. Active atorvastatin (LIPITOR) 10 mg tablet Take 10 mg by mouth daily with supper. Active FLUoxetine (PROzac) 20 mg capsule Take 20 mg by mouth 2 times daily. Active ergocalciferol, vitamin D2, (VITAMIN D ORAL) Take by mouth. Activ e levothyroxine 50 mcg tablet Take 50 mcg by mouth daily tile sprayer. Active lithium carbonate (ESKALITH CR) 450 mg Controlled Release tablet Take 450 mg by mouth daily. Active lithium carbonate (ESKALITH IR) 600 mg Capsule Take 600 mg by mouth daily. Active TRELEGY ELLIPTA 100-62.5-25 mcg Disk with Device INHALE 1 PUFF BY MOUTH ONCE DAILY AT THE SAME TIME EACH DAY RINSE MOUTH AFTER EACH USE 9 Active albuterol HFA 90 mcg inhaler Take 2 Puffs by inhalation every 6 hours as needed for Shortness of Breath. Active mirabegron (MYRBETRIQ) 25 mg Extended Release 24 hour tablet Take 25 mg by mouth daily. 3 Active doxycycline hyclate (VIBRAMYCIN) 100 mg capsule Take 100 mg by mouth 2 times daily. 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 Encounters Date Type Department Care Team Description 08/24/2024 Orders Only [facility] - [address] [place] [address] Timothy Mcneil MD 08/22/2024 External Device Data STL ABSTRACTION Provider, Abstract 08/22/2024 Orders Only [facility] - [address] [place] [address] Scanning, Provider 08/21/2024 10:00 AM MARKETING CLERK Office Visit [facility] - [address] [place] [id number] Timothy Mcneil MD Mature NK/t-cell lymphoma, unspecified body region, unspecified mature NK/t-cell lymphoma type (CMS/HCC) (Primary Dx); Chronic anemia 08/21/2024 Orders Only [facility] - [address] [place] [address] Timothy Mcneil MD 08/15/2024 Orders Only [facility]ology - [address] [place] [id number] Timothy Mcneil MD Mature NK/t-cell lymphoma, unspecified body region, unspecified mature NK/t-cell lymphoma type (CMS/HCC) (Primary Dx) from Last 3 Months Family History Medical History Relation Name Comments Stroke Father Relation Name Status Comments Brother Alive Father Mother Social History Tobacco Use Types Packs/Day Years [...] on file Sexual Orientation Not on file Last Filed Vital Signs Vital Sign Reading Time Taken Comments Blood Pressure 112/65 08/21/2024 10:07 AM MARKETING CLERK Pulse 50 08/21/2024 10:07 AM MARKETING CLERK Temperature 36.2 ??C (97.1 ??F) 08/21/2024 1 0:07 AM MARKETING CLERK Respiratory Rate 15 08/21/2024 10:0 7 AM MARKETING CLERK Oxygen Saturation 93% 08/21/2024 10: 07 AM MARKETING CLERK Inhaled Oxygen Concentration - - Weight 85.5 kg (188 lb 9.6 oz) 08/21/2024 10:07 AM MARKETING CLERK Patient stated that this is the correct weight Height 180.3 cm (5' 11 ) 08/18/2021 12: 19 PM MARKETING CLERK Body Mass Index 26.3 08/18/2021 12:19 PM MARKETING CLERK Plan of Treatment Upcoming Encounters Date Type Department Care Team (Late st Contact Info) Description 09/04/2024 4:30 PM MARKETING CLERK Telephone Check Up [facility]ology - [place] [address] [facility] [address] [place] [address] Timothy Mcneil MD [address] [facility] [address] [place] [address] Health Maintenance Due Date Last Done Comments DTAP/TDAP/TD VACCINES (1 - Tdap) 1963 ZOSTER VACCINE (1 of 2) 1994 RSV VACCINE (60+ or ) (1 - 1-dose 75+ series) 2019 PNEUMOCOCCAL VACCINE 65+ YEARS Completed 05/28/2020 , 04/25/2019 INFLUENZA VACCINE Completed 06/30/2024, , 07/03/2022, Additional history exists Procedures Procedure Name Priority Date/Time Associated Diagnosis Comments CT CHEST ABDOMEN PELVIS W CONT Routine 08/21/2024 1:42 PM MARKETING CLERK IRON LEVEL Routine 08/21/2024 12:50 PM MARKETING CLERK LACTATE DEHYDROGENASE Routine 08/21/2024 11:27 AM MARKETING CLERK BASIC METABOLIC PANEL Routine 08/21/2024 11:27 AM MARKETING CLERK COMPREHENSIVE METABOLIC PANEL Routine 08/21/2024 11:23 AM MARKETING CLERK from Last 3 Months Results * CT CHEST ABDOMEN PELVIS W CONT (08/21/2024 1:42 PM MARKETING CLERK) Anatomical Region Laterality Modality Chest Other us Timothy Mcneil MD CT ORDERABLES Final Result * IRON LEVEL (08/21/2024 12:50 PM MARKETING CLERK) Blood us Timothy Mcneil MD CHEMISTRY ORDERABLES Final Resu lt * LACTATE DEHYDROGENASE (08/21/2024 11:27 AM MARKETING CLERK) Blood Timothy Mcneil MD CHEMISTRY ORDERABLES Final Resu lt * BASIC METABOLIC PANEL (08/21/2024 11:27 AM MARKETING CLERK) Blood Timothy Mcneil MD CHEMISTRY ORDERABLES Final Resu lt * COMPREHENSIVE METABOLIC PANEL (08/21/2024 11:23 AM MARKETING CLERK) Blood Provider Scanning CHEMISTRY ORDERABLES Final Res ult from Last 3 Months Insurance MEDICARE PART A AND B Care Teams Sanitary Aide Relationship Specialty Start Date End Date Adrien Alicea MD [phone] (work) PCP - General Emergency Medicine 04/21/19
--- OUTSIDE RECORDS SUMMARY | 2024-08-24 13:02 | XMS_ITS | Clinical Summary ---
Author Organization [facility] Address [address] [place] [address]. [place], [place] [address] [place] [address] Care Team Providers Care Salesforce Trainer Name Role Phone Jose Ling Primary Care Provider + Allergies No known active allergies Medications vitamin D3, cholecalciferol, 1000 UNIT Tab tablet Take 1 tablet (25 mcg total) by mouth daily. Active TRELEGY 100-62.5-25 MCG/INH AEROSOL POWDER, BREATH ACTIVATED 1 Active lithium 300 MG capsule Take 1 capsule (300 mg total) by mouth 2 (two) times daily with meals. 1 Active sodium chloride 1 GM tablet Take 1 tablet (1 g total) by mouth 3 (three) times daily. Active clobetasol 0.05 % external solution APPLY TO RASH AREAS ON SCALP TWICE DAILY FOR 4 WEEKS FOR FLARES. DO NOT APPLY TO FACE. 2 Active triamcinolone 0.1 % ointment APPLY TO RASH AREAS ON HANDS, EARS, TRUNK, AND LEGS TWICE DAILY FOR 4 WEEKS FOR FLARES. DO NOT APPLY TO FACE. MUST TAKE 2 WEEK BREAK BEFORE RESTARTING. 2 Active Ixekizumab (TALTZ) 80 MG/ML Solution Auto-injector Inject 80 mg into the skin every 30 (thirty) days. Active tamsulosin (FLOMAX) 0.4 MG CapIndications:Garrick ign prostatic hyperplasia with nocturia Take 1 capsule (0.4 mg total) by mouth daily. 30 capsule 2 4 Active levothyroxine (SYNTHROID) 50 MCG tabletIndications: Hypothyroidism, unspecified type take 1 tablet by mouth at bedtime 90 tablet 3 4 Active atorvastatin (LIPITOR) 20 MG tabletIndications: Hyperlipidemia, unspecified hyperlipidemia type TAKE 1 TABLET BY MOUTH NIGHTLY AT BEDTIME 90 tablet 4 Active albuterol sulfate HFA 108 (90 Base) MCG/ACT inhaler Inhale 2 puffs into the lungs. Active vitamin C (ASCORBIC ACID) 500 MG tablet Take 1 tablet (500 mg total) by mouth daily. Active ferrous sulfate, 65 mg elemental, 325 (65 FE) MG tablet Take 1 tablet (325 mg total) by mouth daily. Active FLUoxetine HCl, PMDD, 20 MG Tab Take 20 mg by mouth 2 (two) times daily. Active folic acid (FOLVITE) 1 MG tablet Take 1 tablet (1 mg total) by mouth daily. 4 11/25/19 25 Active doxycycline hyclate (VIBRAMYCIN) 100 MG capsuleIndications :Upper respiratory tract infection, unspecified type Take 1 capsule (100 mg total) by mouth 2 (two) times daily for 10 days. 20 capsule 5 08/24/19 25 Active FLUoxetine 20 MG capsule Take by mouth 2 (two) times daily. 1 08/14/19 25 Discontin ued(Dose adjustmen t) cefdinir (OMNICEF) 300 MG Cap capsule Take 1 capsule (300 mg total) by mouth 2 (two) times daily. 08/14/19 25 Discontin ued(Formu liane change) doxycycline hyclate (VIBRAMYCIN) 100 MG capsule Take 1 capsule (100 mg total) by mouth 2 (two) times daily. 08/14/19 25 Discontin ued(Thera py completed ) Active Problems Problem Noted Date Diagnosed Date Chronic respiratory failure with hypoxia ([facility]) 02/10/2024 Stage 3a chronic kidney disease ([facility] ) 11/18/2023 Pulmonary emphysema, unspeci fied emphysema type ([facility]) 01/01/2022 Bipolar depression ([facility]) 01/01/2022 Constipation, unspecified constipation type 12/0 08/2020 S/P splenectomy 07/02/2021 Hypothyroidism, unspecified type 04/02/2021 Hyperlipidemia, unspecified hyperlipidemia type 04/02/2021 Plaque psoriasis 04/02/2021 Mature NK/T-cell lymphoma ([facility]) 05/02 Obstructive sleep apnea syndrome 04/09/2016 Overview (02/10/2024): Obstructive sleep apnea Resolved Problems Problem Noted Date Diagnosed Date Resolved Date Community acquired pneumonia 11/18/2023 02/10/2024 Encounters Date Type Department Care Team Description 2024 9:40 AM CAMOUFLAGE SPECIALIST Office Visit [facility] Family & Internal Medicine [address] [address] Jose Ling, Pneumonia (The patient presents for 6 month follow up. The patient had covid 2-3 weeks ago. He is still coughing up yellow mucus ); Urinary Incontinence (The patient still reports urinary incontinence. ) 2024 Travel 07/27/2024 Telephone [facility] Family & Internal [address] [address] Jose Ling, Medication Request 07/19/2024 Scan [facility] INFO SRVCS Scanned, [facility] Lab (SCAN) 06/30/2024 Scan HEALTH INFO SRVCS Scanned, Doc [facility] from Last 3 Months Immunizations Name Administration Dates Next Due Arexvy Respiratory Syncytial Virus (RSV, adjuvanted) 0.5 mL, PF 06/17/2023 Fluad influenza vaccine, Obinna drivalent (aIIV4), Inactivated, adjuvanted, preservative free, 0.5 mL,IM use 05/28/2020 Fluzone High Dose (IIV, triv alent, 0.5mL) 06/30/2024 Fluzone High Dose - >Age 65 (Prefilled Syringe) 06/17/2023,07/03/2022,06/05/2021,04/25,04/28/2018,04/12/2017,05/08/2016 Hib (PedvaxHIB)3 Dose 07/10/2021 Influenza (Generic) 06/22/2014 Meningcoccal Group B (Trumen ba)(aka Meningitis) 07/10/2021 Meningococcal (Menactra) 07/10/2021 PFIZER COVID-19 (ORIGINAL FO RMULATION, PURPLE CAP) mRNA, LNP-S, PF, 30 MCG/0.3 ML DOSE 05/06/2021 Pneumococcal (Pneumovax 23) 05/28/2020 Pneumococcal (Prevnar 13) 04/25/2019 Family History Medical History Relation Comments Stroke Father Arthritis Mother Cancer Mother Relation Status Comments Father Mother Social History Tobacco Use Types Packs/Day Years Used Date Smoking Tobacco: Former Cigarettes 1.5 41 0 04/02/1960 - 04/02/2001 Passive Smoke Exposure: Never Smokeless Tobacco: Never Tobacco Cessation:Counseling Given: Not Answered Alcohol Use Standard Drinks/Week Comments Yes 1.7 (1 standard drink = 0.6 oz p ure alcohol) a couple of times a week PHQ-2 Answer Date Recorded Patient Health Questionnaire-2 Score 4 2024 Sex and Gender Information Value Date Recorded Sex Assigned at Male 2024 9:37 AM CAMOUFLAGE SPECIALIST Legal Sex Male 1:23 PM CDT Gender Identity Male 2024 9:37 AM CAMOUFLAGE SPECIALIST Sexual Orientation Not on file Last Filed Vital Signs Vital Sign Reading Time Taken Comments Blood Pressure 128/82 2024 9:40 AM CAMOUFLAGE SPECIALIST Pulse 76 2024 9:40 AM CAMOUFLAGE SPECIALIST Temperature 36.5 ??C (97.7 ??F) 2024 9:40 AM CS T Respiratory Rate 16 2024 9:40 AM CAMOUFLAGE SPECIALIST Oxygen Saturation 96% 2024 9:40 AM CAMOUFLAGE SPECIALIST Inhaled Oxygen Concentration - - Weight 83 kg (182 lb 14.4 oz) 2024 9:40 AM CAMOUFLAGE SPECIALIST Height 180.3 cm (5' 11 ) 2024 9:40 AM CAMOUFLAGE SPECIALIST Body Mass Index 25.51 2024 9:40 AM CAMOUFLAGE SPECIALIST Plan of Treatment Upcoming Encounters Date Type Department Care Team (Late st Contact Info) Description 02/12/2025 9:20 AM CDT Office Visit [facility] Family [facility] Internal Medicine [address] [phone] Jose Ling P, [address] [place] [address] Health Maintenance Due Date Last Done Comments Annual Medicare Wellness Visit 2009 Meningococcal B Vaccine (2 of 5 - Increased Risk Trumenba 3-dose series) 08/07/2021 07/10/2021 Meningococcal Vaccine (2 - Risk 2-dose series) 09/04/2021 07/10/2021 DTaP, Tdap and Td Vaccines (1 - Tdap) 2025 Postponed from 1963 (No Insurance Coverage) PHQ-2 (Physician [place]) 2025 2024 Zoster Vaccines (1 of 2) 2025 Pos tponed from 1963 (Going to Outside Clinic) COVID-19 Vaccine (4 - season) 2112 05/06/2021, 09/30/2020, 09/09/2020 Postponed from 04/02/2024 (Going to Outside Clinic) Pneumococcal Vaccine: 65+ Years Completed 05/28/2020, 04/25/2019 RSV Immunization or 60+ Years Completed 06/17/2023 Influenza Adult Completed 06/30/2024, 06/02, 07/03/2022, Additional history exists RSV Immunizations Under 20 Months Aged Out No longer eligible based on patient's age to complete this topic Procedures Procedure Name Priority Date/Time Associated Diagnosis Comments OUTSIDE LAB (SCAN ORDER) 07/19/2024 from Last 3 Months Results * OUTSIDE LAB (SCAN ORDER) (07/19/2024) 07/19/2024 us Doc [facility] Scanned SCANNING Final Resu lt from Last 3 Months Insurance MEDICARE [employer] Care Teams Salesforce Trainer Relationship Specialty Start Date End Date Jose Ling DO [address] [place] [phone] PCP - General FAMILY PRACTICE 04/02/21
--- OUTSIDE RECORDS SUMMARY | 2024-08-24 13:02 | XMS_ITS | Clinical Summary ---
Author Organization [facility] Address [address] [place] [address] Care Team Providers Care First Aid Officer Name Role Phone Unavailable Primary Care Provider Unavailabl e Social History Tobacco Use Types Packs/Day Years Used Date Smoking Tobacco: Never Assessed Sex and Gender Information Value Date Recorded Sex Assigned at Not on file Legal Sex Male 9:08 AM SPLICING SUPERVISOR Gender Identity Not on file Sexual Orientation Not on file Plan of Treatment Health Maintenance Due Date Last Done Comments Hepatitis C Virus (HCV) Screening 1945 TdaP Immunization 1945 Zoster Immunization (1 of 2) 1994 Respiratory Syncytial Virus (RSV) Immunization (Adult) (1 - 1-dose 75+ series) 2019 Influenza Immunization (#1) 04/02/202405/03, 04/25/2019, 04/28/2018, Additional history exists SARS-COV-2 Immunization (2023- season) 2024 Pneumococcal Immunization (50+ years) Completed 05/28/2020, 04/25/2019 Pneumococcal Immunization Combined Discontinued 05/28/2020, 04/25/2019 Hepatitis B Immunization Aged Out No longer eligible based on patient's age to complete this topic Meningococcal Immunization (ACWY) Aged Out No longer eligible based on patient's age to complete this topic Rotavirus Immunization Aged Out No lo nger eligible based on patient's age to complete this topic
--- OUTSIDE RECORDS SUMMARY | 2024-08-24 13:02 | XMS_ITS | Clinical Summary ---
Author Organization [facility] Address [address] [place] [address] Care Team Providers Care Railroad Crane Operator Name Role Phone Jose Ling DO Primary Care Provide r Allergies No known active allergies Medications ferrous sulfate 325 mg (65 mg of elemental iron) tabletIndicatio ns:Iron Deficiency Anemia Take 1 tablet (325 mg total) by mouth every evening Active lithium 300 mg tablet/capsule Take 1 tablet/capsul e (300 mg total) by mouth every morning @0800 AM In addition to two 300 mg(600 mg) every evening ( 5PM ); for a total daily regimen of 300 mg in the morning and 600 mg every evening Active sodium chloride 1 gram tablet Take 1 tablet (1 g total) by mouth nightly Active atorvastatin (LIPITOR) 20 mg tablet Take 1 tablet (20 mg total) by mouth nightly Active FLUoxetine (PROzac) 20 mg tablet Take 1 tablet (20 mg total) by mouth 2 (two) times a day Active levothyroxine (SYNTHROID) 50 mcg tablet Take 1 tablet (50 mcg total) by mouth daily Active lithium 300 mg tablet/capsule Take 2 tablet/capsul e (600 mg total) by mouth every evening @1700(5 pm) In addition to 300 mg in the AM for a total daily regimen of 300 mg in the morning and 600 mg every evening Active cholecalciferol 25 mcg (1,000 unit) tablet Take 1 tablet (1,000 Units total) by mouth daily Active ascorbic acid (VITAMIN C) 500 mg tablet,chewable Take 1 tablet/chew tab (500 mg total) by mouth daily Active fluticasone/ume clidin/vilanter (TRELEGY ELLIPTA INHAL) Inhale 1 puff daily Active albuterol HFA (PROVENTIL HFA,VENTOLIN HFA,PROAIR HFA) 90 mcg/actuation inhaler Inhale 2 puffs every 6 (six) hours as needed for wheezing Active ixekizumab (Taltz Autoinjector) auto-injector Inject 1 mL (80 mg total) under the skin every 30 (thirty) days Active benzonatate (TESSALON) 200 mg capsuleIndicati ons:Cough Take 1 capsule (200 mg total) by mouth 3 (three) times a day 20 capsule 11/24/2023 Active folic acid (FOLVITE) 1 mg tablet Take 1 tablet (1 mg total) by mouth daily 30 tablet 11 11/25/2023 11/25/19 Active thiamine (VITAMIN B1) 100 mg tablet Take 1 tablet (100 mg total) by mouth daily 30 tablet 11/25/2023 11/25/19 25 Active Active Problems Problem Noted Date Diagnosed Date Encephalopathy 11/19/2023 Acute on chronic respiratory failure with hypoxi a ([facility]) 11/18/2023 Leukocytosis 11/18/2023 Stage 3 chronic kidney disease 11/18/2023 ANGELIKA (acute kidney injury) 11/18/2023 Fecal impaction ([facility]) 11/18/2023 Diarrhea 11/18/2023 Age-related physical debility 11/18/2023 Community acquired pneumonia 11/18/2023 Acute metabolic encephalopathy 11/18/2023 Moderate protein-calorie malnutrition ([facility]) 11/18/2023 Pulmonary hypertension 07/01/2016 Overview (11/12/2016): Pulmonary hypertension Bipolar affective disorder 04/09/2016 Overview (11/12/2016): Bipolar affective disorder, remission status unspecified Dizziness 04/09/2016 Overview (11/12/2016): Dizziness Atypical chest pain 04/09/2016 Overview (11/12/2016): Chest pain, atypical Psoriasis 04/09/2016 Overview (11/12/2016): Psoriasis Pulmonary emphysema 04/09/2016 Overview (11/12/2016): Pulmonary emphysema, unspecified emphysema type Shortness of breath 04/09/2016 Overview (11/12/2016): Shortness of breath Obstructive sleep apnea syndrome 04/09/2016 Overview (11/12/2016): Obstructive sleep apnea Medical History Medical History Date Comments Hx Other Medical emphesema, high chol, insomnia, JEM, bipolar, psor; Comments: MAF 04/09/2016 - Emphysema lung (HCC) Bipolar 1 disorder (HCC) Lymphoma, T-cell (HCC) Sleep apnea Pulmonary HTN (HCC) Hyperlipidemia Family History Medical History Relation Name Comments Stroke Father 2 Stroke; Other Mother 2 Natural Causes; Cause of : Natural Causes Relation Name Status Comments Father 1 Father 2 Mother 1 Mother 2 Social History Tobacco Use Types Packs/Day Years Used Date Smoking Tobacco: Former Comments:Smoking History Pac ks/day: 2 Packs Alcohol Use Standard Drinks/Week Comments Yes 0 (1 standard drink = 0.6 oz pur e alcohol) [facility] Utilities Answer Date Recorded In the past 12 months has [employer], gas, oil, or water Homeschool Snowboarding threatened to shut off services in your home? No 11/18/2023 Social Connection and Isolat ion Panel [NHANES] Answer Date Recorded In a typical week, how many times do you talk on the phone with family, friends, or neighbors? More than three times a week 11/18/2023 How often do you get togethe r with friends or relatives? More than three times a week 11/18/2023 How often do you attend chur ch or evangelical services? Never 11/18/2023 Do you belong to any clubs o r organizations such as uatsdin groups, unions, fraternal or athletic groups, or school groups? No 11/18/2023 How often do you attend meet ings of the clubs or organizations you belong to? Never 11/18/2023 Are you , , di vorced, , never , or living with a partner? 11/18/2023 Overall Financial Resource Strain (CARDIA) Answe r Date Recorded How hard is it for you to pa y for the very basics like food, housing, medical care, and heating? Not hard at all 11/18/2023 Hunger Vital Sign Answer Date Recorded Within the past 12 months, y ou worried that your food would run out before you got the money to buy more. Never true 11/18/19 24 Within the past 12 months, t he food you bought just didn't last and you didn't have money to get more. Never true 11/18/2023 PRAPARE - Transportation Answer Date Re corded In the past 12 months, has l ack of transportation kept you from medical appointments or from getting medications? No 10/31 In the past 12 months, has l ack of transportation kept you from meetings, work, or from getting things needed for daily living? No 11/18/2023 Housing Stability Vital Sign Answer Amaury e Recorded In the last 12 months, was t here a time when you were not able to pay the mortgage or rent on time? No 11/18/2023 In the last 12 months, how many places have you lived? 1 11/18/2023 In the last 12 months, was t here a time when you did not have a steady place to sleep or slept in a group home (including now)? No 11/18/2023 Personal Safety Answer Date Recorded Have you ever been in or are you currently in a harmful physical or emotional relationship or is someone making you feel afraid or unsafe? Denies 11/18/2023 Sex and Gender Information Value Date Recorded Sex Assigned at Not on file Legal Sex Male 12:30 AM QUALITATIVE EXECUTIVE RESEARCHER Gender Identity Not on file Sexual Orientation Not on file Obstetrics History Last Filed Vital Signs Vital Sign Reading Time Taken Comments Blood Pressure 131/73 11/24/2023 3:07 PM CDT Pulse 83 11/24/2023 3:07 PM CDT Temperature 36.4 ??C (97.5 ??F) 11/24/2023 3:07 PM CD T Respiratory Rate 18 11/24/2023 3:07 PM CDT Oxygen Saturation 97% 11/24/2023 3:07 PM CDT Inhaled Oxygen Concentration - - Weight 88.4 kg (194 lb 12.8 oz) 11/24/2023 6:00 AM CDT Height 180.3 cm (5' 11 ) 11/18/2023 3:32 AM CDT Body Mass Index 27.17 11/18/2023 3:32 AM CDT Plan of Treatment Health Maintenance Due Date Last Done Comments Depression Screening 1945 DTaP/Tdap/Td Vaccine (1 - Tdap) 1955 Hepatitis B Screening 1962 Zoster Vaccine (1 of 2) 1963 Well Visit 65+ 2009 Meningococcal B Vaccine (2 o f 5 - Increased Risk Trumenba 3-dose series) 08/07/2021 07/10/2021 Covid-19 Vaccine (4 - 2023-2 5 season) 2024 05/06/2021, 09/30/2020, 09/09/2020 Influenza Vaccine (#1) 2024 , 07/03/2022, 06/05/2021, Additional history exists Fall Risk Assessment 11/23/2024 11/24/2023 Pneumococcal vaccine 65+ Completed 05/28/2020, 04/03 Insurance MEDICARE [facility] Advance Directives For more information, please contact: [phone] * Full Code (Latest Code Status on File) Date Activated Date Inactivated Comments 11/18/2023 2:23 AM 11/24/2023 11:05 PM Care Teams Railroad Crane Operator Relationship Specialty Start Date End Date Jose Ling DO [address] [place] [phone] PCP - General Family Medicine 11/18/23
--- OUTSIDE RECORDS SUMMARY | 2024-08-24 13:02 | XMS_ITS | Encounter Summary ---
Author Organization [facility] Address [facility]. [place], [place] [address] [place] [address] Care Team Providers Care Phosphoric Acid Operator Name Role Phone Jose Ling DO Primary Care Provider + Encounter Details Date Type Department Care Team (Late Contact Info) Description 01/27/2023 MyChart Message Enc [facility] Medical Group [facility] [address] [place] [address] [facility], [facility] Provider Air Quality Message Social History Tobacco Use Types Packs/Day Years Used Date Smoking Tobacco: Former Cigarettes 1.5 41 0 04/02/1960 - 04/02/2001 Passive Smoke Exposure: Never Smokeless Tobacco: Never Alcohol Use Standard Drinks/Week Comments Yes 1.7 (1 standard drink = 0.6 oz p ure alcohol) a couple of times a week PHQ-2 Answer Date Recorded Patient Health Questionnaire-2 Score 0 12/02/2022 Sex and Gender Information Value Date Recorded Sex Assigned at Male 2024 9:37 AM DOMESTIC CLEANER Legal Sex Male 1:23 PM CDT Gender Identity Male 2024 9:37 AM DOMESTIC CLEANER Sexual Orientation Not on file documented as of this encounter Plan of Treatment Upcoming Encounters Date Type Department Care Team (Late Contact Info) Description 02/12/2025 9:20 AM CDT Office Visit [facility] Medical Group Family & Internal Medicine [address] [address] Jose Ling DO [address] [place] [address] documented as of this encounter Visit Diagnoses Not on filedocumented in this encounter Additional Health Concerns Assessment Noted Time PHQ-9 Depression Total Score: 9 01/02/20 22 9:04 AM CDT documented as of this encounter Care Teams Phosphoric Acid Operator Relationship Specialty Start Date End Date Jose Ling DO [address] [place] [phone] PCP - General FAMILY PRACTICE 04/02/21 documented as of this encounter
--- OUTSIDE RECORDS SUMMARY | 2024-08-24 13:02 | XMS_ITS | Referral Summary ---
Author Organization [facility] Address [address] [place] [address] Care Team Providers Care Room Attendants Name Role Phone Jose Ling DO Primary [...] on chronic respiratory failure with hypoxi a ([facility]) 11/18/2023 Leukocytosis 11/18/2023 Stage 3 chronic kidney disease 11/18/2023 ANGELIKA (acute kidney injury) 11/18/2023 Fecal impaction ([facility]) 11/18/2023 Diarrhea 11/18/2023 Age-related physical debility 11/18/2023 Community acquired pneumonia 11/18/2023 Acute metabolic encephalopathy 11/18/2023 Moderate protein-calorie malnutrition ([facility]) 11/18/2023 Pulmonary hypertension 07/01/2016 [...] syndrome 04/09/2016 Overview (11/12/2016): Obstructive sleep apnea Social History Tobacco Use Types Packs/Day Years Used Date Smoking Tobacco: Former Comments:Smoking History Pac ks/day: 2 Packs Alcohol Use Standard Drinks/Week Comments Yes 0 (1 standard drink = 0.6 oz pur e alcohol) [facility] Utilities Answer Date Recorded In the past 12 months has th e electric, gas, oil, or water [employer] threatened to shut off services in your [...] often do you attend chur ch or worship services? Never 11/18/2023 Do you belong to any clubs o r organizations such as jainism groups, unions, fraternal or athletic groups, or [...] place to sleep or slept in a correction (including now)? No 11/18/2023 Personal Safety Answer Date Recorded Have you ever been in or are you currently in a harmful physical or emotional relationship or is someone making you feel afraid or unsafe? Denies 11/18/2023 Sex and Gender Information Value Date Recorded Sex Assigned at Not on file Legal Sex Male 12:30 AM GARAGEMAN Gender Identity Not on file Sexual Orientation [...] 11/18/2023 3:32 AM CDT Plan of Treatment Not on file Insurance MEDICARE [facility] Advance Directives For more information, please contact: [phone] * Full Code (Latest Code Status on File) Date Activated Date Inactivated Comments 11/18/2023 2:23 AM 11/24/2023 11:05 PM Care Teams Room Attendants Relationship Specialty Start Date End Date Jose Ling DO [address] [place] [id number] PCP - General Family Medicine 11/18/23
== END 2024-08-21 11:28 | disposition home or self-care (01) ==
PROVIDERS: PCP Student in an Organized Health Care Education/Training Program; Visit Provider Internal Medicine Hematology & Oncology
DX: C84.90 Mature T/NK-cell lymphomas, unspecified, unspecified site (principal); D64.9 Anemia, unspecified
CPT/HCPCS: 71260; 74177; Q9967

== ENCOUNTER 2024-09-15 08:03 | Outpatient (CLI) | payer MEDICARE, SELFPAY ==
--- OUTSIDE RECORDS SUMMARY | 2024-09-15 08:12 | XMS_ITS | Encounter Summary ---
Author Organization [facility] Address [address] [place] [address] Care Team Providers Care Pulper Tender Name Role Phone Jose Ling DO Primary Care Provider + Encounter Details Date Type Department Care Team (Late Contact Info) Description 01/27/2023 MyChart Message Enc [facility] Medical Group [facility] [address] [place], [place] [phone] [place], [facility] Provider Air Quality Message Social History Tobacco [...] Sex Assigned at Male 2024 9:37 AM RECREATIONAL THERAPIST Legal Sex Male 1:23 PM CDT Gender Identity Male 2024 9:37 AM RECREATIONAL THERAPIST Sexual Orientation Not on file documented as of this encounter Plan of Treatment Upcoming Encounters Date Type Department Care Team (Late Contact Info) Description 02/12/2025 9:20 AM CDT Office Visit [facility] Medical Group Family & Internal Medicine [address] [address] Jose Ling DO [address] [place] [address] documented as of this encounter Visit Diagnoses Not on filedocumented in this encounter Additional Health Concerns Assessment Noted Time PHQ-9 Depression Total Score: 9 01/02/20 22 9:04 AM CDT documented as of this encounter Care Teams Pulper Tender Relationship Specialty Start Date End Date Jose Ling DO [address] [place] [address] PCP - General FAMILY PRACTICE 04/02/21 documented as of this encounter
--- OUTSIDE RECORDS SUMMARY | 2024-09-15 08:12 | XMS_ITS | Clinical Summary ---
Author Organization [facility] Address [address] [place] [address] Care Team Providers Care Sales Promoter Name Role Phone ChanoJose garcia DO Primary Care Provider + Allergies No known [...] (thirty) days. Active tamsulosin (FLOMAX) 0.4 MG CapIndications:Rafael gn prostatic hyperplasia with nocturia Take 1 capsule (0.4 mg total) by mouth daily. 30 capsule 2 4 Active levothyroxine (SYNTHROID) 50 MCG tabletIndications:H ypothyroidism, unspecified type take 1 tablet by mouth at bedtime 90 tablet 3 4 Active atorvastatin (LIPITOR) 20 MG tabletIndications:H yperlipidemia, unspecified hyperlipidemia type TAKE 1 TABLET BY [...] 25 Active doxycycline hyclate (VIBRAMYCIN) 100 MG capsuleIndications: Upper respiratory tract infection, unspecified type Take 1 capsule (100 mg total) by mouth 2 (two) times daily for 10 days. 20 capsule 5 08/24/19 25 Active Problems Problem Noted Date Diagnosed Date Chronic respiratory failure with hypoxia ([facility]) 02/10/2024 Stage 3a chronic kidney disease ([facility] ) 11/18/2023 Pulmonary emphysema, unspeci fied emphysema type ([facility]) 01/01/2022 Bipolar depression ([facility]) 01/01/2022 Constipation, unspecified constipation type 12/0 08/2020 S/P splenectomy 07/02/2021 Hypothyroidism, unspecified type 04/02/2021 Hyperlipidemia, unspecified hyperlipidemia type 04/02/2021 Plaque psoriasis 04/02/2021 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 Internal [address] [address] Jose Ling, Question 08/21/2024 Scan HEALTH INFO SRVCS Scanned, Doc [facility] Lab (SCAN) 08/21/2024 Scan HEALTH INFO SRVCS Scanned, Doc Med Group Lab (SCAN); CT (SCAN) 2024 9:40 AM SUPERVISOR POLISHING Office Visit [facility] Internal [address] [address] Jose Ling, Pneumonia (The patient presents for 6 month follow up. The patient had covid 2-3 weeks ago. He is still coughing up yellow mucus ); Urinary Incontinence (The patient still reports urinary incontinence. ) 2024 Travel 07/27/[address] [address] Jose Ling, Medication Request 07/19/2024 Scan HEALTH INFO SRVCS Scanned, Doc Med [...] Sex Assigned at Male 2024 9:37 AM SUPERVISOR POLISHING Legal Sex Male 1:23 PM CDT Gender Identity Male 2024 9:37 AM SUPERVISOR POLISHING Sexual Orientation Not on file Last Filed Vital Signs Vital Sign Reading Time Taken Comments Blood Pressure 128/82 2024 9:40 AM SUPERVISOR POLISHING Pulse 76 2024 9:40 AM SUPERVISOR POLISHING Temperature 36.5 C (97.7 F) 2024 9:40 AM SUPERVISOR POLISHING Respiratory Rate 16 2024 9:40 AM SUPERVISOR POLISHING Oxygen Saturation 96% 2024 9:40 AM SUPERVISOR POLISHING Inhaled Oxygen Concentration - - Weight 83 kg (182 lb 14.4 oz) 2024 9:40 AM SUPERVISOR POLISHING Height 180.3 cm (5' 11 ) 2024 9:40 AM SUPERVISOR POLISHING Body Mass Index 25.51 2024 9:40 AM SUPERVISOR POLISHING Plan of Treatment Upcoming Encounters Date Type Department Care Team (Late st Contact Info) Description 02/12/2025 9:20 AM CDT Office Visit [facility] Medical Group Family & Internal Medicine [address] [address] Jose Ling P, DO [address] [place] [address] [phone] Health Maintenance Due Date Last Done Comments Annual Medicare Wellness Visit 2009 Meningococcal B Vaccine (2 of 5 - Increased Risk Trumenba 3-dose series) 08/07/2021 07/10/2021 Meningococcal Vaccine (2 - Risk 2-dose series) 09/04/2021 07/10/2021 DTaP, Tdap and Td Vaccines (1 - Tdap) 2025 Postponed from 1964 (No Insurance Coverage) Zoster Vaccines (1 of 2) 2025 Pos tponed from 1964 (Going to Outside Clinic) COVID-19 Vaccine ( season) 2112 05/06/2021, 09/30/2020, 09/09/2020 Postponed from 04/02/2024 (Going to Outside Clinic) Pneumococcal Vaccine: 65+ Years Completed 05/28/2020, 04/25/2019 RSV Immunization or 60+ Years Completed 06/17/2023 Influenza Adult Completed 06/30/2024, 06/02, 07/03/2022, Additional history exists PHQ-2 (Physician Stuart) Completed 2024 RSV Immunizations Under 20 Months Aged Out No longer eligible based on patient's age to complete this topic Procedures Procedure Name Priority Date/Time Associated Diagnosis Comments CT GENERIC 08/21/2024 OUTSIDE LAB (SCAN ORDER) Routine 08/21/2024 OUTSIDE LAB (SCAN ORDER) 08/21/2024 OUTSIDE LAB (SCAN ORDER) 08/21/2024 OUTSIDE LAB (SCAN ORDER) 08/21/2024 OUTSIDE LAB (SCAN ORDER) 08/21/2024 OUTSIDE LAB (SCAN ORDER) 08/21/2024 OUTSIDE LAB (SCAN ORDER) 07/19/2024 from Last 3 Months Results * CT GENERIC (08/21/2024) Anatomical Region Laterality Modality Other 08/21/2024 us Doc [facility] Scanned SCANNING Final Resu lt * OUTSIDE LAB (08/21/2024) Only the most recent of7 resultswithin the time period is included. HGB A1C 5.7 % [facility] 08/21/2024 us Doc [facility] Scanned SCANNING Final Resu lt [facility] from Last 3 Months Insurance MEDICARE [facility] Care Teams Sales Promoter Relationship Specialty Start Date End Date Jose Ling DO [address] [place] [phone] PCP - General FAMILY PRACTICE 04/02/21
--- OUTSIDE RECORDS SUMMARY | 2024-09-15 08:12 | XMS_ITS | Encounter Summary ---
Author Organization [facility] Address [address] [place] [id number] Care Team Providers Care Design Chief Name Role Phone Jose Ling DO Primary Care Provider + Reason for Visit * Reason Onset Date Comments Question 08/29/2024 Encounter Details Date Type Department Care Team (Late st Contact Info) Description 08/29/2024 Telephone [facility] Medical Group Family & Internal Medicine [id number] [place] [phone] Jose Ling DO [address] [place] [address] Question Social History Tobacco Use Types Packs/Day Years [...] Sex Assigned at Male 2024 9:37 AM DIABETES TERRITORY MANAGER Legal Sex Male 1:23 PM CDT Gender Identity Male 2024 9:37 AM DIABETES TERRITORY MANAGER Sexual Orientation Not on file documented as of this encounter Progress Notes * Jose Ling DO - 08/30/2024 1:11 PM CST My apologies, I misread my last note. Does not need to send PSA result to anyone. ETES TERRITORY MANAGER * Bety Leal MA - 08/30/2024 1:02 PM CST Spoke with patient and his . The patient states he has not seen a urologist in many years. Patient v/u and did not have questions at this time. Lab results sent to scan. ETES TERRITORY MANAGER * Jose Ling DO - 08/29/2024 3:13 PM CST Please let pt know we have the reuslts of his labs from 08/21/24. They are relatively stable. A1c is5.7; continue conservative treatment for this. Please send PSA results to pt's urologist. Repeat labs in 1 year or sooner if needed. ETES TERRITORY MANAGER documented in this encounter Plan of Treatment Upcoming Encounters Date Type Department Care Team (Late st Contact Info) Description 02/12/2025 9:20 AM CDT Office Visit [facility] Medical Group Family & Internal Medicine - [address] [phone] Jose Ling DO [address] [place] [address] documented as of this encounter Visit Diagnoses Not on filedocumented in this encounter Additional Health Concerns Assessment Noted Time PHQ-9 Depression Total Score: 10 025 9:37 AM DIABETES TERRITORY MANAGER documented as of this encounter Care Teams Design Chief Relationship Specialty Start Date End Date Jose Ling DO [address] [place] [phone] PCP - General FAMILY PRACTICE 04/02/21 documented as of this encounter
--- OUTSIDE RECORDS SUMMARY | 2024-09-15 08:12 | XMS_ITS | Referral Summary ---
Author Organization [facility] Address [address] [place] [address] Care Team Providers Care Base Brander Name Role Phone Jose Ling DO Primary [...] on chronic respiratory failure with hypoxi a ([facility]) 11/18/2023 Leukocytosis 11/18/2023 Stage 3 chronic kidney disease 11/18/2023 ANGELIKA (acute kidney injury) 11/18/2023 Fecal impaction ([facility]) 11/18/2023 Diarrhea 11/18/2023 Age-related physical debility 11/18/2023 Community acquired pneumonia 11/18/2023 Acute metabolic encephalopathy 11/18/2023 Moderate protein-calorie malnutrition ([facility]) 11/18/2023 Pulmonary hypertension 07/01/2016 Overview (11/12/2016): Pulmonary [...] drink = 0.6 oz pur e alcohol) [facility] Utilities Answer Date Recorded In the past 12 months has th e electric, gas, oil, or water [employer] threatened to shut off services in your [...] often do you attend chur ch or scientologist services? Never 11/18/2023 Do you belong to any clubs o r organizations such as spiritism groups, unions, fraternal or athletic groups, or [...] place to sleep or slept in a care home (including now)? No 11/18/2023 Personal Safety Answer Date Recorded Have you ever been in or are you currently in a harmful physical or emotional relationship or is someone making you feel afraid or unsafe? Denies 11/18/2023 Sex and Gender Information Value Date Recorded Sex Assigned at Not on file Legal Sex Male 12:30 AM SECURITY OFFICERS [employer] GUARDS Gender Identity Not on file Sexual Orientation Not on file Last Filed Vital Signs Vital Sign Reading Time Taken Comments Blood Pressure 131/73 11/24/2023 3:07 PM CDT Pulse 83 11/24/2023 3:07 PM CDT Temperature 36.4 C (97.5 F) 11/24/2023 3:07 PM CDT Respiratory Rate 18 11/24/2023 3:07 PM CDT Oxygen Saturation 97% 11/24/2023 3:07 PM CDT Inhaled Oxygen Concentration - - Weight 88.4 kg (194 lb 12.8 oz) 11/24/2023 6:00 AM CDT Height 180.3 cm (5' 11 ) 11/18/2023 3:32 AM CDT Body Mass Index 27.17 11/18/2023 3:32 AM CDT Plan of Treatment Not on file Insurance MEDICARE [facility] Advance Directives For more information, please contact: [phone] * Full Code (Latest Code Status on File) Date Activated Date Inactivated Comments 11/18/2023 2:23 AM 11/24/2023 11:05 PM Care Teams Base Brander Relationship Specialty Start Date End Date Jose Ling DO [address] [place] [phone] PCP - General Family Medicine 11/18/23
--- OUTSIDE RECORDS SUMMARY | 2024-09-15 08:12 | XMS_ITS | Clinical Summary ---
Author Organization [facility] Address [address] [place] [address] Care Team Providers Care Neurophysiology Tech Name Role Phone Adrien Alicea MD Primary Care Provider [phone] Allergies No known active allergies Medications carbidopa-levod [...] tablet Take 50 mcg by mouth daily meeting facilitator. Active lithium carbonate (ESKALITH CR) 450 mg [...] 2 times daily. 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 Encounters Date Type Department Care Team Description 09/04/2024 4:30 PM COMPOUND FINISHER Telephone Check Up [facility] Oncology and Hematology - [place] [place] [phone] Timothy Mcneil MD Chronic anemia (Primary Dx) 08/24/2024 Orders Only [facility] Oncology and Hematology - [place] [address] [place] [address] Timothy Mcneil MD 08/23/2024 External Device Data [facility] ABSTRACTION Provider, Abstract 08/22/2024 External Device Data [facility] ABSTRACTION Provider, Abstract 08/22/2024 Orders Only [facility] Oncology and Hematology - [place] [place] [phone] Scanning, Provider 08/21/2024 10:00 AM COMPOUND FINISHER Office Visit [facility] Oncology and Hematology - [address] [place] [address] Timothy Mcneil MD Mature NK/t-cell lymphoma, unspecified body region, unspecified mature NK/t-cell lymphoma type (CMS/HCC) (Primary Dx); Chronic anemia 08/21/2024 Orders Only [facility] Oncology and Hematology - [place] [place] [phone] Timothy Mcneil MD 08/15/2024 Orders Only [facility] Oncology and Hematology - [place] [place] [address] Timothy Mcneil MD Mature NK/t-cell lymphoma, unspecified [...] Comments Blood Pressure 112/65 08/21/2024 10:07 AM COMPOUND FINISHER Pulse 50 08/21/2024 10:07 AM COMPOUND FINISHER Temperature 36.2 C (97.1 F) 08/21/2024 10:07 AM COMPOUND FINISHER Respiratory Rate 15 08/21/2024 10:0 7 AM COMPOUND FINISHER Oxygen Saturation 93% 08/21/2024 10: 07 AM COMPOUND FINISHER Inhaled Oxygen Concentration - - Weight 85.5 kg (188 lb 9.6 oz) 08/21/2024 10:07 AM COMPOUND FINISHER Patient stated that this is the correct weight Height 180.3 cm (5' 11 ) 08/18/2021 12: 19 PM COMPOUND FINISHER Body Mass Index 26.3 08/18/2021 12:19 PM COMPOUND FINISHER Plan of Treatment Upcoming Encounters Date Type Department Care Team (Late st Contact Info) Description 03/06/2025 11:45 AM CDT Office Visit [facility] Oncology and Hematology - [place] [address] [facility] [address] [place] [address] Timothy Mcneil MD [address] [facility] [address] [place] [address] Health Maintenance Due Date Last Done Comments DTAP/TDAP/TD VACCINES (1 - Tdap) 1964 Traditional Medicare (ACO) A nnual Wellness Visit 1964 ZOSTER VACCINE (1 of 2) 1994 RSV VACCINE (60+ or ) (1 - 1-dose 75+ series) 2019 PNEUMOCOCCAL VACCINE 65+ YEARS Completed 05/28/2020 , 04/25/2019 INFLUENZA VACCINE Completed 06/30/2024, , 07/03/2022, Additional history exists Procedures Procedure Name Priority Date/Time Associated Diagnosis Comments CT CHEST ABDOMEN PELVIS W CONT Routine 08/21/2024 1:42 PM COMPOUND FINISHER IRON LEVEL Routine 08/21/2024 12:50 PM COMPOUND FINISHER LACTATE DEHYDROGENASE Routine 08/21/2024 11:27 AM COMPOUND FINISHER BASIC METABOLIC PANEL Routine 08/21/2024 11:27 AM COMPOUND FINISHER COMPREHENSIVE METABOLIC PANEL Routine 08/21/2024 11:23 AM COMPOUND FINISHER from Last 3 Months Results * CT CHEST ABDOMEN PELVIS W CONT (08/21/2024 1:42 PM COMPOUND FINISHER) Anatomical Region Laterality Modality Chest Other Timothy Mcneil MD CT ORDERABLES Final Result * IRON LEVEL (08/21/2024 12:50 PM COMPOUND FINISHER) Blood Result [facility] Timothy Mcneil MD CHEMISTRY ORDERABLES Final Resu lt * LACTATE DEHYDROGENASE (08/21/2024 11:27 AM COMPOUND FINISHER) Blood Result [facility] Timothy Mcneil MD CHEMISTRY ORDERABLES Final Resu lt * BASIC METABOLIC PANEL (08/21/2024 11:27 AM COMPOUND FINISHER) Blood Result [facility] Timothy Mcneil MD CHEMISTRY ORDERABLES Final Resu lt * COMPREHENSIVE METABOLIC PANEL (08/21/2024 11:23 AM COMPOUND FINISHER) Blood Result [facility] Provider Scanning CHEMISTRY ORDERABLES Final Res ult from Last 3 Months Insurance [facility] SUPP MEDICARE PART A AND B Care Teams Neurophysiology Tech Relationship Specialty Start Date End Date Adrien Alicea MD PCP - General Emergency Medicine 04/21/19
--- OUTSIDE RECORDS SUMMARY | 2024-09-15 08:12 | XMS_ITS | Clinical Summary ---
Author Organization [facility] Address [address] [place] [address] Care Team Providers Care Strip Mine Supervisor Name Role Phone Unavailable Primary Care Provider Unavailabl e Social History Tobacco Use Types Packs/Day Years Used Date Smoking Tobacco: Never Assessed Sex and Gender Information Value Date Recorded Sex Assigned at Not on file Legal Sex Male 9:08 AM MANAGER PSYCHIATRY Gender Identity Not on file Sexual Orientation [...]
--- OUTSIDE RECORDS SUMMARY | 2024-09-15 08:12 | XMS_ITS | Clinical Summary ---
Author Organization [facility] Address [address] [place] [address] Care Team Providers Care Hand Hose Cutter Name Role Phone Jose Ling DO Primary [...] on chronic respiratory failure with hypoxi a ([facility]) 11/18/2023 Leukocytosis 11/18/2023 Stage 3 chronic kidney disease 11/18/2023 ANGELIKA (acute kidney injury) 11/18/2023 Fecal impaction ([facility]) 11/18/2023 Diarrhea 11/18/2023 Age-related physical debility 11/18/2023 Community acquired pneumonia 11/18/2023 Acute metabolic encephalopathy 11/18/2023 Moderate protein-calorie malnutrition ([facility]) 11/18/2023 Pulmonary hypertension 07/01/2016 Overview (11/12/2016): [...] drink = 0.6 oz pur e alcohol) [facility] Utilities Answer Date Recorded In the past 12 months has [employer], gas, oil, or water [employer] threatened to shut off services in your [...] often do you attend chur ch or orthodox services? Never 11/18/2023 Do you belong to any clubs o r organizations such as latter day groups, unions, fraternal or athletic groups, or [...] place to sleep or slept in a long-term (including now)? No 11/18/2023 Personal Safety Answer Date Recorded Have you ever been in or are you currently in a harmful physical or emotional relationship or is someone making you feel afraid or unsafe? Denies 11/18/2023 Sex and Gender Information Value Date Recorded Sex Assigned at Not on file Legal Sex Male 12:30 AM INSPECTOR MULTIFOCAL LENS Gender Identity Not on file Sexual Orientation [...] vaccine 65+ Completed 05/28/2020, 04/03 Insurance MEDICARE [facility] Advance Directives For more information, please contact: [phone] * Full Code (Latest Code Status on File) Date Activated Date Inactivated Comments 11/18/2023 2:23 AM 11/24/2023 11:05 PM Care Teams Hand Hose Cutter Relationship Specialty Start Date End Date Jose Ling DO [address] [place] [id number] PCP - General Family Medicine 11/18/23
[2024-09-15 08:46] LABS: Alanine Aminotransferase 21 U/L (6-50); Albumin Level 4.2 g/dL (3.5-5.1); Alkaline Phosphatase 68 U/L (38-126); Aspartate Amino Transferase 24 U/L (17-59); Bilirubin,Total 1.1 mg/dL (0.2-1.3)
[2024-09-15 08:57] LABS: Lithium 0.8 mmol/L (0.6-1.2)
[2024-09-15 09:00] LABS: T4 Thyroxine 8.59 ug/dL (5.53-11.0)
[2024-09-19 13:34] LABS: NIL 0.02 IU/mL; Quantiferon TB Plus, 1T NEGATIVE (NEGATIVE)
== END 2024-09-15 08:04 | disposition home or self-care (01) ==
PROVIDERS: PCP Student in an Organized Health Care Education/Training Program; Referring Provider Registered Nurse Psychiatric/Mental Health, Adult; Visit Provider Dermatology
DX: L40.0 Psoriasis vulgaris (principal); R78.5 Finding of other psychotropic drug in blood; E03.9 Hypothyroidism, unspecified; K76.9 Liver disease, unspecified
CPT/HCPCS: 36415; 80076; 80178; 84436; 84443; 86480

== ENCOUNTER 2024-11-03 07:35 | Outpatient (CLI) | payer MEDICARE, SELFPAY ==
--- OUTSIDE RECORDS SUMMARY | 2024-11-03 07:39 | XMS_ITS | Clinical Summary ---
Author Organization [facility] Address [address] [place] [address] Care Team Providers Care Dredge Pipe Operator Name Role Phone Adrien Alicea MD Primary Care Provider [phone] Allergies No known active allergies Medications carbidopa-levod [...] tablet Take 50 mcg by mouth daily business and services instructor. Active lithium carbonate (ESKALITH CR) 450 mg [...] 25 mg by mouth daily. 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 Encounters Date Type Department Care Team Description 10/04/2024 External Device Data STL ABSTRACTION Provider, Abstract 09/20/2024 External Device Data STL ABSTRACTION Provider, Abstract 09/19/2024 External Device Data ST[place] ABSTRACTION Provider, Abstract 09/04/2024 4:30 PM DEDICATED LOCAL TRUCK DRIVER Telephone Check Up [facility] [place] [address] [facility] [place] [address] Timothy Mcneil MD Chronic anemia (Primary Dx) 08/24/2024 Orders Only [facility] [place] [address] [place] [address] Timothy Mcneil MD 08/23/2024 External Device Data STL ABSTRACTION Provider, Abstract 08/22/2024 External Device Data STL ABSTRACTION Provider, Abstract 08/22/2024 Orders Only [facility] [place] [address] [place] [address] Scanning, Provider 08/21/2024 10:00 AM DEDICATED LOCAL TRUCK DRIVER Office Visit [facility] [place] [address] [place] [address] Timothy Mcneil MD Mature NK/t-cell lymphoma, unspecified body region, unspecified mature NK/t-cell lymphoma type (CMS/HCC) (Primary Dx); Chronic anemia 08/21/2024 Orders Only [facility] - [place] [address] [place] [address] Timothy Mcneil MD 08/15/2024 Orders Only [facility] - [place] [address] [place] [address] Timothy Mcneil MD Mature NK/t-cell lymphoma, unspecified [...] Comments Blood Pressure 112/65 08/21/2024 10:07 AM DEDICATED LOCAL TRUCK DRIVER Pulse 50 08/21/2024 10:07 AM DEDICATED LOCAL TRUCK DRIVER Temperature 36.2 C (97.1 F) 08/21/2024 10:07 AM DEDICATED LOCAL TRUCK DRIVER Respiratory Rate 15 08/21/2024 10:0 7 AM DEDICATED LOCAL TRUCK DRIVER Oxygen Saturation 93% 08/21/2024 10: 07 AM DEDICATED LOCAL TRUCK DRIVER Inhaled Oxygen Concentration - - Weight 85.5 kg (188 lb 9.6 oz) 08/21/2024 10:07 AM DEDICATED LOCAL TRUCK DRIVER Patient stated that this is the correct weight Height 180.3 cm (5' 11 ) 08/18/2021 12: 19 PM DEDICATED LOCAL TRUCK DRIVER Body Mass Index 26.3 08/18/2021 12:19 PM DEDICATED LOCAL TRUCK DRIVER Plan of Treatment Upcoming Encounters Date Type Department Care Team (Late st Contact Info) Description 03/06/2025 11:45 AM CDT Office Visit [facility] [place] [address] [facility] [address] [place] [address] Timothy Mcneil MD [address] [facility] [address] [place] [address] Health Maintenance Due Date Last Done Comments DTAP/TDAP/TD VACCINES (1 - Tdap) 1964 Traditional Medicare (ACO) A nnual Wellness Visit 1964 ZOSTER VACCINE (1 of 2) 1994 RSV VACCINE (60+ or ) (1 - 1-dose 75+ series) 2019 PNEUMOCOCCAL VACCINE 50+ YEARS Completed 05/28/2020 , 04/25/2019 INFLUENZA VACCINE Completed 06/30/2024, , 07/03/2022, Additional history exists Procedures Procedure Name Priority Date/Time Associated Diagnosis Comments CT CHEST ABDOMEN PELVIS W CONT Routine 08/21/2024 1:42 PM DEDICATED LOCAL TRUCK DRIVER IRON LEVEL Routine 08/21/2024 12:50 PM DEDICATED LOCAL TRUCK DRIVER LACTATE DEHYDROGENASE Routine 08/21/2024 11:27 AM DEDICATED LOCAL TRUCK DRIVER BASIC METABOLIC PANEL Routine 08/21/2024 11:27 AM DEDICATED LOCAL TRUCK DRIVER COMPREHENSIVE METABOLIC PANEL Routine 08/21/2024 11:23 AM DEDICATED LOCAL TRUCK DRIVER from Last 3 Months Results * CT CHEST ABDOMEN PELVIS W CONT (08/21/2024 1:42 PM DEDICATED LOCAL TRUCK DRIVER) Anatomical Region Laterality Modality Chest Computed Tomogra phy Timothy Mcneil MD CT ORDERABLES Final Result * IRON LEVEL (08/21/2024 12:50 PM DEDICATED LOCAL TRUCK DRIVER) Blood Timothy Mcneil MD CHEMISTRY ORDERABLES Final Resu lt * LACTATE DEHYDROGENASE (08/21/2024 11:27 AM DEDICATED LOCAL TRUCK DRIVER) Blood Result [facility] Timothy Mcneil MD CHEMISTRY ORDERABLES Final Resu lt * BASIC METABOLIC PANEL (08/21/2024 11:27 AM DEDICATED LOCAL TRUCK DRIVER) Blood Timothy Mcneil MD CHEMISTRY ORDERABLES Final Resu lt * COMPREHENSIVE METABOLIC PANEL (08/21/2024 11:23 AM DEDICATED LOCAL TRUCK DRIVER) Blood Provider Scanning CHEMISTRY ORDERABLES Final Res ult from Last 3 Months Insurance BCBS SUPP MEDICARE PART A AND B Care Teams Dredge Pipe Operator Relationship Specialty Start Date End Date Adrien Alicea MD PCP - General Emergency Medicine 04/21/19
--- OUTSIDE RECORDS SUMMARY | 2024-11-03 07:39 | XMS_ITS | Encounter Summary ---
Author Organization [facility] Address [address] [place] [address] Care Team Providers Care Ticket Attendant Name Role Phone Jose Ling DO Primary Care Provider + Encounter Details Date Type Department Care Team (Late Contact Info) Description 01/27/2023 MyChart Message Enc [facility] [address] [place], [place] [id number] [employer], [facility] Provider Air Quality Message Social History Tobacco [...] Sex Assigned at Male 2024 9:37 AM TUB ATTENDANT Legal Sex Male 1:23 PM CDT Gender Identity Male 2024 9:37 AM TUB ATTENDANT Sexual Orientation Not on file documented as of this encounter Plan of Treatment Upcoming Encounters Date Type Department Care Team (Late Contact Info) Description 02/12/2025 9:20 AM CDT Office Visit [facility] Medical [facility] Family & Internal Medicine [address] [address] Jose Ling DO [address] [place] [address] documented as of this encounter Visit Diagnoses Not on filedocumented in this encounter Additional Health Concerns Assessment Noted Time PHQ-9 Depression Total Score: 9 01/02/20 22 9:04 AM CDT documented as of this encounter Care Teams Ticket Attendant Relationship Specialty Start Date End Date Jose Ling DO [address] [place] [address] PCP - General FAMILY PRACTICE 04/02/21 documented as of this encounter
--- OUTSIDE RECORDS SUMMARY | 2024-11-03 07:39 | XMS_ITS | Clinical Summary ---
Author Organization [facility] Address [address] [place] [address] Care Team Providers Care Auto Claim Representative Name Role Phone ChanoJose garcia DO Primary [...] at bedtime 90 tablet 3 4 Active albuterol sulfate HFA 108 (90 [...] mg total) by mouth daily. 4 11/25/19 Active atorvastatin (LIPITOR) 20 MG tabletIndications:H yperlipidemia, unspecified hyperlipidemia type TAKE 1 TABLET BY MOUTH NIGHTLY AT BEDTIME 90 tablet 1 5 Active Active Problems Problem Noted Date Diagnosed Date Chronic respiratory failure with hypoxia ([facility] 02/10/2024 Stage 3a chronic kidney disease 11/18/2023 Pulmonary emphysema, unspeci fied emphysema type ([facility]) 01/01/2022 Bipolar depression ([facility]) 01/01/2022 Constipation, unspecified constipation type 0 08/2020 S/P splenectomy 07/02/2021 Hypothyroidism, unspecified type 04/02/2021 Hyperlipidemia, unspecified hyperlipidemia type 04/02/2021 Plaque psoriasis 04/02/2021 Mature NK/T-cell lymphoma ([facility]) 05/02 Obstructive sleep apnea syndrome 04/09/2016 Overview (02/10/2024): Obstructive sleep apnea Resolved Problems Problem Noted Date Diagnosed Date Resolved Date Community acquired pneumonia 11/18/2023 02/10/2024 Encounters Date Type Department Care Team Description 09/15/2024 Scan HEALTH INFO SRVCS Scanned, Doc Med Group Lab (SCAN) 08/29/2024 Telephone [facility] Medical Group Family & Internal Medicine [address] [address] Jose Ling P, DO Question 08/21/2024 Scan MG HEALTH INFO SRVCS Scanned, Doc Med Group Lab (SCAN) 08/21/2024 Scan MG HEALTH INFO SRVCS Scanned, Doc Med [facility] Lab (SCAN); CT (SCAN) 2024 9:40 AM MOUNTER FLUTES AND PICCOLOS Office Visit [facility] Medical Group Family & Internal Medicine [address] [address] Jose Ling DO Pneumonia (The patient presents for 6 month follow up. The patient had covid 2-3 weeks ago. He is still coughing up yellow mucus ); Urinary Incontinence (The patient still reports urinary incontinence. ) 2024 Travel from Last 3 Months Immunizations Name Administration [...] Sex Assigned at Male 2024 9:37 AM MOUNTER FLUTES AND PICCOLOS Legal Sex Male 1:23 PM CDT Gender Identity Male 2024 9:37 AM MOUNTER FLUTES AND PICCOLOS Sexual Orientation Not on file Last Filed Vital Signs Vital Sign Reading Time Taken Comments Blood Pressure 128/82 2024 9:40 AM MOUNTER FLUTES AND PICCOLOS Pulse 76 2024 9:40 AM MOUNTER FLUTES AND PICCOLOS Temperature 36.5 C (97.7 F) 2024 9:40 AM MOUNTER FLUTES AND PICCOLOS Respiratory Rate 16 2024 9:40 AM MOUNTER FLUTES AND PICCOLOS Oxygen Saturation 96% 2024 9:40 AM MOUNTER FLUTES AND PICCOLOS Inhaled Oxygen Concentration - - Weight 83 kg (182 lb 14.4 oz) 2024 9:40 AM MOUNTER FLUTES AND PICCOLOS Height 180.3 cm (5' 11 ) 2024 9:40 AM MOUNTER FLUTES AND PICCOLOS Body Mass Index 25.51 2024 9:40 AM MOUNTER FLUTES AND PICCOLOS Plan of Treatment Upcoming Encounters Date Type Department Care Team (Late st Contact Info) Description 02/12/2025 9:20 AM CDT Office Visit [facility] Medical Group Family & Internal Medicine [address] [phone] Jose Ling P, DO [address] [place] [address] Health Maintenance Due Date Last Done Comments Annual Medicare Wellness Visit 2009 Meningococcal B Vaccine (2 o f 5 - Increased Risk Trumenba 3-dose series) 08/07/2021 07/10/2021 Meningococcal Vaccine (2 - Risk 2-dose series) 09/04/2021 07/10/2021 DTaP, Tdap and Td Vaccines ( 1 - Tdap) 2025 Postponed from 08/14 (No Insurance Coverage) Zoster Vaccines (1 of 2) 2025 Pos tponed from 1964 (Going to Outside Clinic) COVID-19 Vaccine (2023-2 5 season) 2112 05/06/2021, 09/30/2020, 09/09/2020 Postponed from 04/02/2024 (Going to Outside Clinic) Pneumococcal Vaccine: 65+ Years Completed 05/28/2020, 04/25/2019 RSV Immunization or 60+ Years Completed 06/17/2023 PHQ-2 (Physician Caldwell) Completed 2024 RSV Immunizations Under 20 Months Aged Out No longer eligible b ased on patient's age to complete this topic Procedures Procedure Name Priority Date/Time Associated Diagnosis Comments OUTSIDE LAB (SCAN ORDER) 09/15/2024 OUTSIDE LAB (SCAN ORDER) 09/15/2024 CT GENERIC 08/21/2024 OUTSIDE LAB (SCAN ORDER) Routine 08/21/2024 OUTSIDE LAB (SCAN ORDER) 08/21/2024 OUTSIDE LAB (SCAN ORDER) 08/21/2024 OUTSIDE LAB (SCAN ORDER) 08/21/2024 OUTSIDE LAB (SCAN ORDER) 08/21/2024 OUTSIDE LAB (SCAN ORDER) 08/21/2024 from Last 3 Months Results * OUTSIDE LAB (SCAN ORDER) (09/15/2024) Only the most recent of8 resultswithin the time period is included. 09/15/2024 [facility] Scanned SCANNING Final Resu lt * CT GENERIC (08/21/2024) Anatomical Region Laterality Modality Other 08/21/2024 [employer] [facility] Scanned SCANNING Final Resu lt from Last 3 Months Insurance MEDICARE [facility] Care Teams Auto Claim Representative Relationship Specialty Start Date End Date Jose Ling DO [address] [place] [phone] PCP - General FAMILY PRACTICE 04/02/21
--- OUTSIDE RECORDS SUMMARY | 2024-11-03 07:39 | XMS_ITS | Clinical Summary ---
Author Organization [facility] Address [address] [place] [address] Care Team Providers Care Pump Rebuilder Name Role Phone Jose Ling DO Primary [...] on chronic respiratory failure with hypoxi a 11/18/2023 Leukocytosis 11/18/2023 Stage 3 chronic kidney disease 11/18/2023 ANGELIKA (acute kidney injury) 11/18/2023 Fecal impaction 11/18/2023 Diarrhea 11/18/2023 Age-related physical debility 11/18/2023 Community acquired pneumonia 11/18/2023 Acute metabolic encephalopathy 11/18/2023 Moderate protein-calorie malnutrition 11/18/2023 Pulmonary hypertension 07/01/2016 Overview (11/12/2016): Pulmonary [...] drink = 0.6 oz pur e alcohol) [facility] Utilities Answer Date Recorded In the past 12 months has [employer] electric, gas, oil, or water [employer] threatened to shut off services in your [...] often do you attend chur ch or denominational services? Never 11/18/2023 Do you belong to any clubs o r organizations such as mandaeism groups, unions, fraternal or athletic groups, or [...] place to sleep or slept in a fci (including now)? No 11/18/2023 Personal Safety Answer Date Recorded Have you ever been in or are you currently in a harmful physical or emotional relationship or is someone making you feel afraid or unsafe? 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 Gender Identity Not on file Sexual Orientation [...] 2023-2 5 season) 2024 05/06/2021, 09/30/2020, 09/09/2020 Fall Risk Assessment 11/23/2024 11/24/2023 Influenza Vaccine (Season Ended) 2025 06/17/2023, 07/03/2022, 06/05/2021, Additional history exists Pneumococcal vaccine 65+ Completed 05/28/2020, 04/03 Insurance MEDICARE [facility] Advance Directives For more information, please contact: [phone] * Full Code (Latest Code Status on File) Date Activated Date Inactivated Comments 11/18/2023 2:23 AM 11/24/2023 11:05 PM Care Teams Pump Rebuilder Relationship Specialty Start Date End Date Jose Ling DO [address] [place] [id number] PCP - General Family Medicine 11/18/23
--- OUTSIDE RECORDS SUMMARY | 2024-11-03 07:39 | XMS_ITS | Referral Summary ---
Author Organization [facility] Address [address] [place] [address] Care Team Providers Care Test Desk Trouble Locator Name Role Phone Jose Ling DO Primary [...] 0.6 oz pur e alcohol) [facility] Utilities Answer Date Recorded In the past 12 months has e electric, gas, oil, or water [employer] threatened to shut off services in your [...] often do you attend chur ch or taoist services? Never 11/18/2023 Do you belong to any clubs o r organizations such as yazdanism groups, unions, fraternal or athletic groups, or [...] place to sleep or slept in a penitentiary (including now)? No 11/18/2023 Personal Safety Answer Date Recorded Have you ever been in or are you currently in a harmful physical or emotional relationship or is someone making you feel afraid or unsafe? Denies 11/18/2023 Sex and Gender Information Value Date Recorded Sex Assigned at Not on file Legal Sex Male 12:30 AM TECHNICAL SUPPORT 1 SOFTWARE ENGINEER Gender Identity Not on file Sexual Orientation [...] of Treatment Not on file Insurance MEDICARE [facility] Advance Directives For more information, please contact: [phone] * Full Code (Latest Code Status on File) Date Activated Date Inactivated Comments 11/18/2023 2:23 AM 11/24/2023 11:05 PM Care Teams Test Desk Trouble Locator Relationship Specialty Start Date End Date Jose Ling DO [address] [place] [id number] PCP - General Family Medicine 11/18/23
--- OUTSIDE RECORDS SUMMARY | 2024-11-03 07:39 | XMS_ITS | Clinical Summary ---
Author Organization 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
[2024-11-03 09:12] LABS: T4 Thyroxine 7.61 ug/dL (5.53-11.0)
[2024-11-03 09:23] LABS: Lithium 0.7 mmol/L (0.6-1.2)
[2024-11-03 09:45] LABS: Free T3 2.72 pg/mL (2.34-5.61); Free T4 Free Thyroxine 0.95 ng/dL (0.78-2.19)
== END 2024-11-03 07:36 | disposition home or self-care (01) ==
PROVIDERS: PCP Student in an Organized Health Care Education/Training Program; Visit Provider Registered Nurse Psychiatric/Mental Health, Adult
DX: Z51.81 Encounter for therapeutic drug level monitoring (principal); Z79.899 Other long term (current) drug therapy; E03.9 Hypothyroidism, unspecified
CPT/HCPCS: 36415; 80178; 84436; 84439; 84443; 84481

== ENCOUNTER 2025-01-26 07:39 | Outpatient (CLI) | payer MEDICARE, SELFPAY ==
[2025-01-26 08:33] LABS: Alanine Aminotransferase 23 U/L (6-50); Alkaline Phosphatase 55 U/L (38-126); Aspartate Amino Transferase 30 U/L (17-59); Bilirubin,Total 0.9 mg/dL (0.2-1.3); Total Protein 7.1 g/dL (6.3-8.2)
[2025-01-26 08:43] LABS: Add Urine Microscopic? NO; Appearance Urine Clear (Clear); Bilirubin Urine Negative (Negative); Blood Urine Negative (Negative); Color Urine Yellow (Yellow); Glucose Urine UA Negative (Negative); Ketones Urine Negative (Negative); Leukocyte Esterase Ur Negative LEU/UL (Negative); Nitrate Urine Negative (Negative); Protein Urine Negative (Negative); Specific Grav Ur 1.007 (1.001-1.035); Urobilinogen Urine 0.2 mg/dL (<2.0)
[2025-01-26 10:07] LABS: Lithium 0.8 mmol/L (0.6-1.2)
[2025-01-26 10:32] LABS: Free T4 Free Thyroxine 0.96 ng/dL (0.78-2.19)
== END 2025-01-26 07:40 | disposition home or self-care (01) ==
PROVIDERS: PCP Student in an Organized Health Care Education/Training Program; Visit Provider Registered Nurse Psychiatric/Mental Health, Adult
DX: R78.5 Finding of other psychotropic drug in blood (principal); N39.0 Urinary tract infection, site not specified; E03.9 Hypothyroidism, unspecified; K76.9 Liver disease, unspecified
CPT/HCPCS: 36415; 80076; 80178; 81003; 84439; 84443

== ENCOUNTER 2025-03-13 09:45 | Outpatient (CLI) | payer MEDICARE, SELFPAY ==
[2025-03-13 10:10] LABS: Hematocrit 39.8 % (42.0-52.0); Hemoglobin 12.3 g/dL (14.0-18.0); Immature Granulocyte Percent A 0.2 % (0-0.5); Lymphocytes Absolute Auto 4.36 K/mm3 (0.9-3.2); Mean Corpuscular HGB Conc 30.9 g/dl (32-36); Mean Corpuscular Hemoglobin 31.4 pg (26-34); Mean Corpuscular Volume 101.5 fl (80-100); Nucleated Red Blood Cells Absolute Auto 0.000 K/mm3 (0.0-0.012); Nucleated Red Blood Cells Perc 0.0 % (0.0-0.2); Platelet Count Result 187 k/mm3 (150-375); Red Blood Count 3.92 M/mm3 (4.6-6.20); White Blood Count 8.6 K/mm3 (4.5-10.0)
--- OUTSIDE RECORDS SUMMARY | 2025-03-13 10:29 | XMS_ITS | Clinical Summary ---
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 lithium carbonate (ESKALITH CR) 450 mg [...] Encounters Date Type Department Care Team Description 03/05/2025 Telephone [facility] Oncology and Hematology - [place] [address] [place] [address] Timothy Mcneil MD Labs Only 02/14/2025 External Device Data STL ABSTRACTION Provider, Abstract 02/13/2025 External Device Data STL ABSTRACTION Provider, Abstract 12/20/2024 External Device Data STL ABSTRACTION Provider, Abstract 12/19/2024 External Device Data STL ABSTRACTION Provider, Abstract from Last 3 Months Family History Medical [...] Comments Blood Pressure 112/65 08/21/2024 10:07 AM BLOOMING MILL SUPERVISOR Pulse 50 08/21/2024 10:07 AM BLOOMING MILL SUPERVISOR Temperature 36.2 C (97.1 F) 08/21/2024 10:07 AM BLOOMING MILL SUPERVISOR Respiratory Rate 15 08/21/2024 10:0 7 AM BLOOMING MILL SUPERVISOR Oxygen Saturation 93% 08/21/2024 10: 07 AM BLOOMING MILL SUPERVISOR Inhaled Oxygen Concentration - - Weight 85.5 kg (188 lb 9.6 oz) 08/21/2024 10:07 AM BLOOMING MILL SUPERVISOR Patient stated that this is the correct weight Height 180.3 cm (5' 11) 08/18/2021 12: 19 PM BLOOMING MILL SUPERVISOR Body Mass Index 26.3 08/18/2021 12:19 PM BLOOMING MILL SUPERVISOR Plan of Treatment Upcoming Encounters Date Type Department Care Team (Late st Contact Info) Description 06/25/2025 2:45 PM BLOOMING MILL SUPERVISOR Office Visit [facility] Oncology and Hematology - [place] [address] [facility] [address] [place] [address] Timothy Mcneil MD [address] [facility] [address] [place] [address] Health Maintenance Due Date Last Done Comments DTAP/TDAP/TD VACCINES (1 - Tdap) 1964 ZOSTER VACCINE (1 of 2) 1994 RSV VACCINE (60+ or ) (1 - 1-dose 75+ series) 2019 INFLUENZA VACCINE (#1) 2025 4, 06/17/2023, 07/03/2022, Additional history exists PNEUMOCOCCAL VACCINE 50+ YEARS Completed 05/28/2020 , 04/25/2019 Insurance BCBS SUPP MEDICARE PART A AND B Care Teams Carpet Renovator Relationship Specialty Start Date End Date Adrien Alicea MD PCP - General Emergency Medicine 04/21/19
--- OUTSIDE RECORDS SUMMARY | 2025-03-13 10:29 | XMS_ITS | Clinical Summary ---
Author Organization [facility] Address [address] [place] [address] Care Team Providers Care Water Fitness Instructor Name Role Phone Jose Ling DO Primary [...] by mouth daily 30 tablet 11 11/25/2023 Active Active Problems Problem Noted Date Diagnosed [...] psor; Comments: MAF 04/09/2016 - Emphysema lung Bipolar 1 disorder (HCC) Lymphoma, T-cell (HCC) [...] drink = 0.6 oz pur e alcohol) [facility] Utilities Answer Date Recorded In the past 12 months has [employer], [employer], oil, or water [employer] threatened to shut off services in your home? No 11/18/2023 Social Connection and Isolation Panel Answer Date Recorded In a typical week, how many times do you talk on the phone with family, friends, or neighbors? More than three times a week 11/18/2023 How often do you get togethe r with friends or relatives? More than three times a week 11/18/2023 How often do you attend chur ch or judaism services? Never 11/18/2023 Do you belong to any clubs o r organizations such as hinduism groups, unions, fraternal or athletic groups, or [...] place to sleep or slept in a prison (including now)? No 11/18/2023 Personal Safety Answer Date Recorded Have you ever been in or are you currently in a harmful physical or emotional relationship or is someone making you feel afraid or unsafe? 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 Gender Identity Not on file Sexual Orientation [...] 6:00 AM CDT Height 180.3 cm (5' 11) 11/18/2023 3:32 AM CDT Body Mass Index [...] Fall Risk Assessment 11/23/2024 11/24/2023 Influenza Vaccine (#1) 2025 3, 07/03/2022, 06/05/2021, Additional history exists Pneumococcal vaccine 65+ Completed 05/28/2020, 04/03 Insurance MEDICARE [facility] Advance Directives For more information, please contact: [phone] * Full Code (Latest Code Status on File) Date Activated Date Inactivated Comments 11/18/2023 2:23 AM 11/24/2023 11:05 PM Care Teams Water Fitness Instructor Relationship Specialty Start Date End Date Luchtefeld, Jose Johnson, DO [address] [place] [id number] PCP - General Family Medicine 11/18/23
--- OUTSIDE RECORDS SUMMARY | 2025-03-13 10:29 | XMS_ITS | Clinical Summary ---
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 Gender Identity Not on file Sexual Orientation Not on file Plan of Treatment Health Maintenance Due Date Last Done Comments Hepatitis C Virus (HCV) Screening 1945 TdaP Immunization 1945 Zoster Immunization (1 of 2) 1994 Respiratory Syncytial Virus (RSV) Immunization (Adult) (1 - 1-dose 75+ series) 2019 SARS-COV-2 Immunization (2023- season) 2024 Influenza Immunization (#1) 04/02/202505/03, 04/25/2019, 04/28/2018, Additional history exists Pneumococcal Immunization (50+ years) Completed 05/28/2020, 04/25/2019 Pneumococcal Immunization Combined Discontinued 05/28/2020, 04/25/2019 Hepatitis B Immunization Aged Out No longer eligible based on patient's age to complete this topic Human Papillomavirus (HPV) Immunization Aged Out No longer eligible based on patient's age to complete this topic Meningococcal Immunization (ACWY) Aged Out No longer eligible based on patient's age to complete this topic Rotavirus Immunization Aged Out No lo nger eligible based on patient's age to complete this topic
[2025-03-13 13:26] LABS: Alanine Aminotransferase 20 U/L (6-50); Albumin Level 4.1 g/dL (3.5-5.1); Alkaline Phosphatase 60 U/L (38-126); Anion Gap 3 mmol/L (4-12); Aspartate Amino Transferase 55 U/L (17-59); Bilirubin,Total 1.0 mg/dL (0.2-1.3); Blood Urea Nitrogen 23 mg/dL (9-20); Calcium 10.3 mg/dL (8.4-10.2); Carbon Dioxide 29 mmol/L (22-30); Chloride 105 mmol/L (98-107); Estimated Glomerular Filt Rate 50; Glucose 90 mg/dL (65-110); Potassium 4.7 mmol/L (3.4-5.0); Sodium 137 mmol/L (137-145); Total Protein 7.1 g/dL (6.3-8.2)
[2025-03-13 14:42] LABS: Vitamin B12 > 1000.0 pg/mL (239-931)
== END 2025-03-13 09:46 | disposition home or self-care (01) ==
PROVIDERS: PCP Student in an Organized Health Care Education/Training Program; Visit Provider Internal Medicine Hematology & Oncology
DX: D64.9 Anemia, unspecified (principal)
CPT/HCPCS: 36415; 80053; 82607; 82746; 85025

== ENCOUNTER 2025-04-11 07:04 | Outpatient (CLI) | payer MEDICARE, SELFPAY ==
[2025-04-11 09:05] LABS: Lithium 0.8 mmol/L (0.6-1.2)
== END 2025-04-11 07:05 | disposition home or self-care (01) ==
PROVIDERS: PCP Student in an Organized Health Care Education/Training Program; Visit Provider Registered Nurse Psychiatric/Mental Health, Adult
DX: Z51.81 Encounter for therapeutic drug level monitoring (principal); Z79.899 Other long term (current) drug therapy
CPT/HCPCS: 36415; 80178

== ENCOUNTER 2025-06-19 10:48 | Outpatient (CLI) | payer MEDICARE, SELFPAY ==
[2025-06-19 11:01] LABS: Hematocrit 38.2 % (42.0-52.0); Hemoglobin 12.0 g/dL (14.0-18.0); Immature Granulocyte Percent A 0.1 % (0-0.5); Lymphocytes Absolute Auto 4.84 K/mm3 (0.9-3.2); Mean Corpuscular HGB Conc 31.4 g/dl (32-36); Mean Corpuscular Hemoglobin 31.5 pg (26-34); Mean Corpuscular Volume 100.3 fl (80-100); Nucleated Red Blood Cells Absolute Auto 0.000 K/mm3 (0.0-0.012); Nucleated Red Blood Cells Perc 0.0 % (0.0-0.2); Platelet Count Result 210 k/mm3 (150-375); Red Blood Count 3.81 M/mm3 (4.6-6.20); White Blood Count 8.6 K/mm3 (4.5-10.0)
[2025-06-19 16:18] LABS: Alanine Aminotransferase 20 U/L (6-50); Albumin Level 4.2 g/dL (3.5-5.1); Alkaline Phosphatase 64 U/L (38-126); Anion Gap 6 mmol/L (4-12); Aspartate Amino Transferase 42 U/L (17-59); Bilirubin,Total 1.0 mg/dL (0.2-1.3); Blood Urea Nitrogen 25 mg/dL (9-20); Calcium 10.0 mg/dL (8.4-10.2); Carbon Dioxide 28 mmol/L (22-30); Chloride 106 mmol/L (98-107); Estimated Glomerular Filt Rate 47; Glucose 101 mg/dL (65-110); Potassium 4.5 mmol/L (3.4-5.0); Sodium 140 mmol/L (137-145); Total Protein 7.2 g/dL (6.3-8.2)
[2025-06-19 17:55] LABS: Vitamin B12 > 1000.0 pg/mL (239-931)
== END 2025-06-19 10:49 | disposition home or self-care (01) ==
LOC: ANHLAB 10:49
PROVIDERS: PCP Student in an Organized Health Care Education/Training Program; Visit Provider Internal Medicine Hematology & Oncology
DX: D64.9 Anemia, unspecified (principal)
CPT/HCPCS: 36415; 80053; 82607; 82746; 85025